=== PATIENT | female | born 1995 | race Caucasian/White ===

== ENCOUNTER 2016-10-25 20:16 | Emergency (ER) | payer MEDICAID ==
[~2016-10-25] VITALS: Ht 170.2 cm; Wt 87.6 kg
[~2016-10-25 20:16] MED LIST: ALBUTEROL2 PUFFS/17 IN; BACTRIM DS 8001 TA1 PO; BUPAP PO; FLEXERIL10 MG PO; IBUPROFEN200 MG PO; LAMICTAL25 MG PO; LEVAQUIN 750 M750 MG PO; LOESTRIN 24 FE1 TAB PO; LORTAB 5/500 501 TAB PO; NOMEDS *; PHENERGAN 25MG.25 M1 PO; PREDNISONE 10MG10 MG PO; SEPTRA DS 800 M1 TAB PO; SPRINTEC 35 MCG1 TAB PO; TESSALON PERLE100 M1 PO; ULTRAM50 MG PO; VOLTAREN75 MG PO
--- NOTE | 2016-10-25 20:59 | Urgent Treatment Center Report ---
History of Present Issue Date/Time Seen by Provider 10/25/162050 Visit Reason Pt arrived:Walked Presenting Problem:PT STATES HAVING VAGINAL ODOR AND DISCHARGE FOR A WEEK AND NOTICED VAGINAL BUMPS THIS MORNING. STATES DISCHARGE IS WHITE AND MILKY. Location if Accident: Onset of symptoms date/time:/ or onset unknown for:MEDICAL HX UNKNOWN Have you (or family members/close friends) recently traveled outside the [place]? N If Yes, where/when: Have you had exposure to infectious disease within the past month? TB? Other? Specify: Patient states that she has been having some bumps on her vaginal area and discharge with a foul odor for about a week now. States that this morning her "boyfriend" and her was "fooling around" and he noticed some "bumps" down there and that it had a white milky discharge so she came to have some test done to see if she had a STD Source patient ALLERGIES Coded Allergies: Penicillins (10/25/16) morphine (10/25/16) History Medical History General CAD? No Angina: No OR: No Hypertension? No Hyperlipidemia? No CHF? No DVT? No PE? No COPD? No Asthma? No Anemia? No GERD? No Gastric ulcers? No GI Bleed? No Hernia? No Thyroid Problems? No Hypothyroidism? No CVA? No Seizures? No Diabetes? No Renal Insuffiency? No UTI? No Stones? No BPH? No GB Disease: No Nephritic Syndrome? No Asplenia? No Hepatitis? No Sickle Cell Disease? No Arthritis? No Migraines? No Cataracts? No Glaucoma? No MRSA? No HIV? No TB? No Anxiety? No Depression? No Cancer? 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 Family History Family HX Diabetes Yes CAD Yes Hypertension Yes Hyperlipidemia Yes Cancer No TB No Social History Smoking Hx Smoker: Current Every Day Smoker Tobacco: Yes Type Cigarettes Packs/day < 1 Pack Alcohol Alcohol: No Review of Systems All Other Systems Reviewed and Negative Comment White milky discharge with foul oder, and bumps on her vagina for about a week now Physical Exam Vital Signs Vital Signs Date Time Temp Pulse Resp B/P Pulse O2 O2 Flow FiO2 Ox Delivery Rate 10/26 2039 98.1 103 20 161/88 96 General Appearance normal appearance, WD/WN, no apparent distress Respiratory Status Yes: trachea midline, chest symmetrical, non tender chest. No: respiratory distress. Cardiovascular normal exam, regular rate/rhythm, no peripheral edema Pelvic no cerv. motion tender, discharge, lesions, Patient had white thin discharge, cultures obtained and sent to lab. Patient states that she thinks she has blisters in her vagina observed flesh colored like lesions that have not come out yet Nurse present during exam? Yes Neurologic alert, trolley operator II-XII nml as tested, normal exam, no motor/sensory deficits, oriented x 3 Comments Patient recently exposed to STD states that she also thinks she may have either warts or herpes because she can feel something up inside her. Medical Decision Making LABS/Meds/Orders Pt receiving controlled substance in ED? No Results/Orders Laboratory Tests 10/25/162250: Urine Color YELLOW, Urine Appearance Cloudy, Urine pH 6.0, Ur Specific [place] 1.020, Urine Protein 100, Urine Ketones 160, Urine Blood MODERATE, Urine Nitrate POSITIVE H, Urine Bilirubin SMALL, Urine Urobilinogen 0.2, Ur Leukocyte Esterase SMALL, Urine Glucose NEGATIVE 10/25/162199: C.trachomatis DNA (JERAMIE) Pending, N.gonorrhoeae RNA Pending Current Medication Orders Sig/Leo Start time Last Medication Dose Route Stop Time Status Admin Azithromycin 1,000 MG ONCE ONE 10/25 2229 DC 10/25 PO 10/25 Ceftriaxone Sodium 250 MG ONCE ONE 10/25 2229 DCr 10/25 IM 10/25 Lidocaine HCl 0.9 ML ONCE ONE 10/25 2229 DC 10/25 IM 10/25 Ceftriaxone Sodium 0 .STK-MED ONE 10/25 2222 DCr .ROUTE Lidocaine HCl 0 .STK-MED ONE 10/25 2222 DC IJ Azithromycin 0 .STK-MED ONE 10/25 2221 DC PO Orders Procedure Date/time Status CHLAMYDIA/GC 10/25 UNK Active [facility] URINE DIPSTICK 10/25 2250 Complete Progress [facility] Progress Notes Date 10/25/16 Time 2202 Comment pelvic exam done swabs collected and sent to lab patient requesting treatment for clamydia and gonarrhea state that she knew she had been exposed and wanted treatment Departure Departure Time of Disposition 2224 Disposition DC Home or Self Care(routine) Clinical Impression Primary Impression: Sexually transmitted disease exposure Secondary Impressions: UTI (urinary tract infection) Qualifiers: Urinary tract infection type: site unspecified Hematuria presence: with hematuria Qualified Code: N39.0 - Urinary tract infection, site not specified Condition STABLE Referrals Carmelo RAJAN,Jose G Aragon.: Tomorrow-Call Office Satnam RAJAN,Byron Benedict: Tomorrow-Call Office Patient Instructions Facts About Sexually Transmitted Infections, How to Detect and Treat STDs Additional Instructions Follow up with family doctor or OBGYN for results of testing in 3-4 days No sex until cleared by family doctor or OBGYN Return if needed Discharge Counseling Counseled pt/family regarding diagnosis, test results, medications/RX, home care, follow up needs Prescriptions Current Visit Scripts SULFAMETHOXAZOLE W/TRIMETHOPRI (Bactrim Ds Tab) 1 TABLET PO BID #20 TAB at 8575
--- NOTE | 2016-10-25 20:59 | Urgent Treatment Center Report ---
History of Present Issue Date/Time Seen by Provider 10/25/162050 Visit Reason Pt arrived:Walked Presenting Problem:PT STATES HAVING VAGINAL ODOR AND DISCHARGE FOR A WEEK AND NOTICED VAGINAL BUMPS THIS MORNING. STATES DISCHARGE IS WHITE AND MILKY. Location if Accident: Onset of symptoms date/time:/ or onset unknown for:MEDICAL HX UNKNOWN Have you (or family members/close friends) recently traveled outside the [place]? N If Yes, where/when: Have you had exposure to infectious disease within the past month? TB? Other? Specify: Patient states that she has been having some bumps on her vaginal area and discharge with a foul odor for about a week now. States that this morning her "boyfriend" and her was "fooling around" and he noticed some "bumps" down there and that it had a white milky discharge so she came to have some test done to see if she had a STD Source patient ALLERGIES Coded Allergies: Penicillins (10/25/16) morphine (10/25/16) History Medical History General CAD? No Angina: No RI: No Hypertension? No Hyperlipidemia? No CHF? No DVT? No PE? No COPD? No Asthma? No Anemia? No GERD? No Gastric ulcers? No GI Bleed? No Hernia? No Thyroid Problems? No Hypothyroidism? No CVA? No Seizures? No Diabetes? No Renal Insuffiency? No UTI? No Stones? No BPH? No GB Disease: No Nephritic Syndrome? No Asplenia? No Hepatitis? No Sickle Cell Disease? No Arthritis? No Migraines? No Cataracts? No Glaucoma? No MRSA? No HIV? No TB? No Anxiety? No Depression? No Cancer? 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 Family History Family HX Diabetes Yes CAD Yes Hypertension Yes Hyperlipidemia Yes Cancer No TB No Social History Smoking Hx Smoker: Current Every Day Smoker Tobacco: Yes Type Cigarettes Packs/day < 1 Pack Alcohol Alcohol: No Review of Systems All Other Systems Reviewed and Negative Comment White milky discharge with foul oder, and bumps on her vagina for about a week now Physical Exam Vital Signs Vital Signs Date Time Temp Pulse Resp B/P Pulse O2 O2 Flow FiO2 Ox Delivery Rate 10/26 2039 98.1 103 20 161/88 96 General Appearance normal appearance, WD/WN, no apparent distress Respiratory Status Yes: trachea midline, chest symmetrical, non tender chest. No: respiratory distress. Cardiovascular normal exam, regular rate/rhythm, no peripheral edema Pelvic no cerv. motion tender, discharge, lesions, Patient had white thin discharge, cultures obtained and sent to lab. Patient states that she thinks she has blisters in her vagina observed flesh colored like lesions that have not come out yet Nurse present during exam? Yes Neurologic alert, attraction attendant II-XII nml as tested, normal exam, no motor/sensory deficits, oriented x 3 Comments Patient recently exposed to STD states that she also thinks she may have either warts or herpes because she can feel something up inside her. Medical Decision Making LABS/Meds/Orders Pt receiving controlled substance in ED? No Results/Orders Laboratory Tests 10/25/162250: Urine Color YELLOW, Urine Appearance Cloudy, Urine pH 6.0, Ur Specific [place] 1.020, Urine Protein 100, Urine Ketones 160, Urine Blood MODERATE, Urine Nitrate POSITIVE H, Urine Bilirubin SMALL, Urine Urobilinogen 0.2, Ur Leukocyte Esterase SMALL, Urine Glucose NEGATIVE 10/25/162199: C.trachomatis DNA (JERAMIE) Pending, N.gonorrhoeae RNA Pending Current Medication Orders Sig/Leo Start time Last Medication Dose Route Stop Time Status Admin Azithromycin 1,000 MG ONCE ONE 10/25 2229 DC 10/25 PO 10/25 Ceftriaxone Sodium 250 MG ONCE ONE 10/25 2229 DCr 10/25 IM 10/25 Lidocaine HCl 0.9 ML ONCE ONE 10/25 2229 DC 10/25 IM 10/25 Ceftriaxone Sodium 0 .STK-MED ONE 10/25 2222 DCr .ROUTE Lidocaine HCl 0 .STK-MED ONE 10/25 2222 DC IJ Azithromycin 0 .STK-MED ONE 10/25 2221 DC PO Orders Procedure Date/time Status CHLAMYDIA/GC 10/25 UNK Active [facility] URINE DIPSTICK 10/25 2250 Complete Progress [facility] Progress Notes Date 10/25/16 Time 2202 Comment pelvic exam done swabs collected and sent to lab patient requesting treatment for clamydia and gonarrhea state that she knew she had been exposed and wanted treatment Departure Departure Time of Disposition 2224 Disposition DC Home or Self Care(routine) Clinical Impression Primary Impression: Sexually transmitted disease exposure Secondary Impressions: UTI (urinary tract infection) Qualifiers: Urinary tract infection type: site unspecified Hematuria presence: with hematuria Qualified Code: N39.0 - Urinary tract infection, site not specified Condition STABLE Referrals Carmelo RAJAN,Jose G Aragon.: Tomorrow-Call Office Satnam RAJAN,Byron Benedict: Tomorrow-Call Office Patient Instructions Facts About Sexually Transmitted Infections, How to Detect and Treat STDs Additional Instructions Follow up with family doctor or OBGYN for results of testing in 3-4 days No sex until cleared by family doctor or OBGYN Return if needed Discharge Counseling Counseled pt/family regarding diagnosis, test results, medications/RX, home care, follow up needs Prescriptions Current Visit Scripts SULFAMETHOXAZOLE W/TRIMETHOPRI (Bactrim Ds Tab) 1 TABLET PO BID #20 TAB at 5951
[2016-10-25] MEDS ORDERED: BACTRIM DS 8001 TA1 PO (22:30)
[2016-10-25 22:52] LABS: URINE BILIRUBIN - DIPSTICK SMALL (NEG); URINE BLOOD MODERATE (NEG)
[2016-10-25 22:56] VITALS: BP 161/88
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
--- OUTSIDE RECORDS SUMMARY | 2016-10-26 09:23 | External Medical Summary Rpt ---
Author Author [employer], [employer] Organization [employer] Address Unknown Phone Unavailable Results CHLAMYDIA AND GONORRHEA TESTING Observa Value Referen Units Interpr Notes Date tion ce etation Range COLLECT C3819 No No No No May 30 OR informa informa informa informa 2014 tion in tion in tion in tion in 2:50 PM source source source source data data data data ETHNICI WHITE, No No No No May 30 TY NON-HIS informa informa informa informa 2014 PANIC tion in tion in tion in tion in 2:50 PM source source source source data data data data KIT 09/2014 No No No No May 30 EXPIRAT informa informa informa informa 2014 ION tion in tion in tion in tion in 2:50 PM DATE source source source source data data data data SYMPTOM YES No No No No May 30 S informa informa informa informa 2014 tion in tion in tion in tion in 2:50 PM source source source source data data data data REASON VOLUNTE No No No No May 30 FOR ER/MEDI informa informa informa informa 2014 REQUEST BRANDON tion in tion in tion in tion in 2:50 PM PROBLEM source source source source data data data data SPECIME URINE No No No No May 30 N informa informa informa informa 2014 SOURCE tion in tion in tion in tion in 2:50 PM source source source source data data data data PREGNAN NO No No No No May 30 T informa informa informa informa 2014 tion in tion in tion in tion in 2:50 PM source source source source data data data data CHART N/A No No No No May 30 NUMBER informa informa informa informa 2014 tion in tion in tion in tion in 2:50 PM source source source source data data data data Chlamyd NEGATIV No No No NEGATIV May 30 ia E informa informa informa E 2014 trachom tion in tion in tion in RESULT= 2:50 PM atis source source source WITHIN rRNA data data data NORMAL [Presen ce] in LIMITSP Unspeci OSITIVE fied specime RESULT= n by Probe & ABNORMA target LEQUIVO BRANDON amplifi RESULT= cation method INDETER MINATEU NSATISF ACTORY RESULT= INVALID Neisser NEGATIV No No No NEGATIV May 30 ia E informa informa informa E 2014 gonorrh tion in tion in tion in RESULT= 2:50 PM oeae source source source WITHIN rRNA data data data NORMAL [Presen ce] in LIMITSP Unspeci OSITIVE fied specime RESULT= n by Probe & ABNORMA target LEQUIVO BRANDON amplifi RESULT= cation method INDETER MINATEU NSATISF ACTORY RESULT= INVALID THE APTIMA COMBO 2 ASSAY IS NOT INTENDE D FOR THE EVALUAT ION OF SUSPECT EDSEXUA L ABUSE OR FOR OTHER MEDICO- LEGAL INDICAT IONS. FOR THOSE PATIENT S FORWHOM A FALSE POSITIV E RESULT MAY HAVE ADVERSE PSYCHO- SOCIAL IMPACT, [facility].\.br \This report contain s patient informa tion that must be protect ed in accorda nce with the Health Insuran ce Portabi lity and Account ability Act. CHLAMYDIA AND GONORRHEA TESTING Observa Value Referen Units Interpr Notes Date tion ce etation Range COLLECT C3819 No No No No May 30 OR informa informa informa informa 2014 tion in tion in tion in tion in 2:50 PM source source source source data data data data ETHNICI WHITE, No No No No May 30 TY NON-HIS informa informa informa informa 2014 PANIC tion in tion in tion in tion in 2:50 PM source source source source data data data data KIT 09/2014 No No No No May 30 EXPIRAT informa informa informa informa 2014 ION tion in tion in tion in tion in 2:50 PM DATE source source source source data data data data SYMPTOM YES No No No No May 30 S informa informa informa informa 2014 tion in tion in tion in tion in 2:50 PM source source source source data data data data REASON VOLUNTE No No No No May 30 FOR ER/MEDI informa informa informa informa 2014 REQUEST BRANDON tion in tion in tion in tion in 2:50 PM PROBLEM source source source source data data data data SPECIME URINE No No No No May 30 N informa informa informa informa 2014 SOURCE tion in tion in tion in tion in 2:50 PM source source source source data data data data PREGNAN NO No No No No May 30 T informa informa informa informa 2014 tion in tion in tion in tion in 2:50 PM source source source source data data data data CHART N/A No No No No May 30 NUMBER informa informa informa informa 2014 tion in tion in tion in tion in 2:50 PM source source source source data data data data [place]yd Pending No No No No May 30 ia informa informa informa informa 2014 trachom tion in tion in tion in tion in 2:50 PM atis source source source source rRNA data data data data [Presen ce] in Unspeci fied specime n by Probe & target amplifi cation method Neisser Pending No No No \.br\May 30 ia informa informa informa is 2014 gonorrh tion in tion in tion in report 2:50 PM oeae source source source contain rRNA data data data s [Presen patient ce] in Unspeci informa fied tion specime that n by must be Probe & target protect ed in amplifi accorda cation nce method with the Health Insuran ce Portabi lity and Account ability Act. CHLAMYDIA AND GONORRHEA TESTING Observa Value Referen Units Interpr Notes Date tion ce etation Range COLLECT D. 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 informa informa 2012 tion in tion in tion in tion in 8:30 AM source source source source data data data data ETHNICI WHITE, No No No No Feb 01 TY NON-HIS informa informa informa informa 2012 PANIC tion in tion in tion in tion in 8:30 AM source source source source data data data data KIT OCTOBER No No No No Feb 01 EXPIRAT 31, informa informa informa informa 2012 ION 2012 tion in tion in tion in tion in 8:30 AM DATE source source source source data data data data SYMPTOM NO No No No No Feb 01 S informa informa informa informa 2012 tion in tion in tion in tion in 8:30 AM source source source source data data data data REASON REVISIT No No No No Feb 01 FOR /ANNUAL informa informa informa informa 2012 REQUEST FAMILY tion in tion in tion in tion in 8:30 AM source source source source PLANNIN data data data data G VISIT SPECIME URINE No No No No Feb 01 N informa informa informa informa 2012 SOURCE tion in tion in tion in tion in 8:30 AM source source source source data data data data PREGNAN NO No No No No Feb 01 T informa informa informa informa 2012 tion in tion in tion in tion in 8:30 AM source source source source data data data data CHART NA No No No No Feb 01 NUMBER informa informa informa informa 2012 tion in tion in tion in tion in 8:30 AM source source source source data data data data [place] NEGATIV No No No NEGATIV Feb 01 ia E informa informa informa E 2012 trachom tion in tion in tion in RESULT= 8:30 AM atis source source source WITHIN rRNA data data data NORMAL [Presen ce] in LIMITSP Unspeci OSITIVE fied specime RESULT= n by Probe & ABNORMA target LEQUIVO BRANDON amplifi RESULT= cation method INDETER MINATEU NSATISF ACTORY RESULT= INVALID Neisser NEGATIV No No No NEGATIV Feb 01 ia E informa informa informa E 2012 gonorrh tion in tion in tion in RESULT= 8:30 AM oeae source source source WITHIN rRNA data data data NORMAL [Presen ce] in LIMITSP Unspeci OSITIVE fied specime RESULT= n by Probe & ABNORMA target LEQUIVO BRANDON amplifi RESULT= cation method INDETER MINATEU NSATISF ACTORY RESULT= INVALID THE APTIMA COMBO 2 ASSAY IS NOT INTENDE D FOR THE EVALUAT ION OF SUSPECT EDSEXUA L ABUSE OR FOR OTHER MEDICO- LEGAL INDICAT IONS. FOR THOSE PATIENT S FORWHOM A FALSE POSITIV E RESULT MAY HAVE ADVERSE PSYCHO- SOCIAL IMPACT, THE [facility] MMENDS RETESTI NG.\.br \This report contain s patient informa tion that must be protect ed in accorda nce with the Health Insuran ce Joanne gonzalez and Account ability Act. CHLAMYDIA AND GONORRHEA TESTING Observa Value Referen Units Interpr Notes Date tion ce etation Range COLLECT D. 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 informa informa 2012 tion in tion in tion in tion in 8:30 AM source source source source data data data data ETHNICI WHITE, No No No No Feb 01 TY NON-HIS informa informa informa informa 2012 PANIC tion in tion in tion in tion in 8:30 AM source source source source data data data data KIT OCTOBER No No No No Feb 01 EXPIRAT 31, informa informa informa informa 2012 ION 2012 tion in tion in tion in tion in 8:30 AM DATE source source source source data data data data SYMPTOM NO No No No No Feb 01 S informa informa informa informa 2012 tion in tion in tion in tion in 8:30 AM source source source source data data data data REASON REVISIT No No No No Feb 01 FOR /ANNUAL informa informa informa informa 2012 REQUEST FAMILY tion in tion in tion in tion in 8:30 AM source source source source PLANNIN data data data data G VISIT SPECIME URINE No No No No Feb 01 N informa informa informa informa 2012 SOURCE tion in tion in tion in tion in 8:30 AM source source source source data data data data PREGNAN NO No No No No Feb 01 T informa informa informa informa 2012 tion in tion in tion in tion in 8:30 AM source source source source data data data data CHART NA No No No No Feb 01 NUMBER informa informa informa informa 2012 tion in tion in tion in tion in 8:30 AM source source source source data data data data Chlamyd Pending No No No No Feb 01 ia informa informa informa informa 2012 trachom tion in tion in tion in tion in 8:30 AM atis source source source source rRNA data data data data [Presen ce] in Unspeci fied specime n by Probe & target amplifi cation method Neisser Pending No No No \.br\Th Aug 7 ia informa informa informa is 2012 gonorrh tion in tion in tion in report 8:30 AM oeae source source source contain rRNA data data data s [Presen patient ce] in Unspeci informa fied tion specime that n by must be Probe & target protect ed in amplifi accorda cation nce method with the Health Insuran ce Portabi lity and Account ability Act.
--- OUTSIDE RECORDS SUMMARY | 2016-10-26 09:23 | External Medical Summary Rpt ---
Demographics Preferred Language Citizen Of [place] Marital Status Unknown Evangelical Affiliation Unknown Race Unknown Ethnic Group Unknown Author Author , Organization [employer] Address Unknown Phone Unavailable Purpose Continuity of Care Document - through 2016 Immunization No patient found.
--- OUTSIDE RECORDS SUMMARY | 2016-10-26 09:23 | External Medical Summary Rpt ---
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
--- OUTSIDE RECORDS SUMMARY | 2016-10-26 09:23 | External Medical Summary Rpt ---
Author Author [employer] Organization [employer] Address Unknown Phone Unavailable Purpose Continuity of Care Document - through 2016
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
--- OUTSIDE RECORDS SUMMARY | 2016-10-26 09:23 | External Medical Summary Rpt ---
Demographics Preferred Language Belarusian Marital Status Unknown Pentecostalism Affiliation Unknown Race Unknown Ethnic Group Unknown Author Author , Organization [employer] Address Unknown Phone Unavailable Purpose Continuity of Care Document - through 2016 Immunization No patient found.
[2016-10-28 14:39] LABS: Neisseria gonorrhoeae, NAA Negative (Negative)
[2016-11-02] MEDS ORDERED: SUBOXONE1 FI1 SL (11:03)
== END 2016-10-25 22:56 | disposition home or self-care (01) ==
LOC: UTC 20:16
PROVIDERS: Nurse Practitioner
DX: A64 Unspecified sexually transmitted disease (principal); N39.0 Urinary tract infection, site not specified

== ENCOUNTER → 2016-11-10 | Outpatient (CLI) | payer MEDICAID ==
[~2016-11-10] MED LIST changes: +SUBOXONE1 FI1 SL
[2016-11-11 07:39] LABS: HIV Screen 4th Generation wRfx Non Reactive (Non Reactive)
[2016-11-11 08:52] LABS: Hep C Virus Ab >11.0 (0.0-0.9); Rapid Plasma Reagin, Quant Non Reactive (NonRea<1:1)
== END ==
LOC: LAB 11:47
PROVIDERS: Obstetrics & Gynecology
DX: Z30.019 Encounter for initial prescription of contraceptives, unspecified (principal); Z30.09 Encounter for other general counseling and advice on contraception
CPT/HCPCS: G0432

== ENCOUNTER 2017-04-04 20:42 | Emergency (ER) | payer MEDICAID ==
[~2017-04-04] VITALS: Ht 167.6 cm; Wt 78.0 kg
--- NOTE | 2017-04-04 20:55 | Urgent Treatment Center Report ---
History of Present Issue Date/Time Seen by Provider 04/04/172050 Visit Reason Pt arrived:Walked Presenting Problem:PT C/O FEVER AND NAUSEA TODAY Location if Accident: Onset of symptoms date/time:/ or onset unknown for:MEDICAL HX UNKNOWN Have you (or family members/close friends) recently traveled outside the [place]? N If Yes, where/when: Have you had exposure to infectious disease within the past month? TB? Other? 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 States that she was running a low grade fever earlier today and had some nausea States that she vomited a couple times earlier today but feels better now States that she thought she may need to come in and see if she needed anything for nausea ALLERGIES Coded Allergies: Penicillins (10/25/16) morphine (10/25/16) Home Medications Reported Medications BUPRENORPHINE HCL/NALOXONE HCL (Suboxone 12 MG-3 MG Sl Film) 1 SL DAILY History Medical History General CAD? No Angina: No ME: No Hypertension? No Hyperlipidemia? No CHF? No DVT? No PE? No COPD? No Asthma? No Anemia? No GERD? No Gastric ulcers? No GI Bleed? No Hernia? No Thyroid Problems? No Hypothyroidism? No CVA? No Seizures? No Diabetes? No Renal Insuffiency? No UTI? No Stones? No BPH? No GB Disease: No Nephritic Syndrome? No Asplenia? No Hepatitis? No Sickle Cell Disease? No Arthritis? No Migraines? No Cataracts? No Glaucoma? No MRSA? No HIV? No TB? No Anxiety? No Depression? No Cancer? No More? No Immunization HX DT/Tetanus Unknown Flu NOT SURE Pneumonia UNKNOWN Surgical Hx Previous Surgery?Y TONSILS Family History Family HX Diabetes Yes CAD Yes Hypertension Yes Hyperlipidemia Yes Cancer No TB No Social History Smoking Hx Smoker: Current Every Day Smoker Tobacco: Yes Type Cigarettes Packs/day < 1 Pack Alcohol Alcohol: No Review of Systems All Other Systems Reviewed and Negative Constitutional denies chills, fever Respiratory denies cough, denies shortness of breath, denies wheezing Cardiovascular denies chest pain Gastrointestinal denies nausea, denies vomiting Physical Exam Vital Signs Vital Signs Date Time Temp Pulse Resp B/P Pulse O2 O2 Flow FiO2 Ox Delivery Rate 04/04 2048 97.7 105 18 120/77 98 General Appearance normal appearance, WD/WN, no apparent distress Ear, Nose, Throat hearing grossly normal, normal ENT inspection Respiratory Status Yes: trachea midline, chest symmetrical, non tender chest. No: respiratory distress. Lung Sounds bilateral: normal breath sounds, lungs clear. Cardiovascular normal exam, regular rate/rhythm Gastrointestinal normal bowel sounds, normal exam, non tender Neurologic alert, normal exam, oriented x 3 Medical Decision Making LABS/Meds/Orders Pt receiving controlled substance in ED? No Departure Departure Time of Disposition 2052 Disposition DC Home or Self Care(routine) Clinical Impression Primary Impression: Viral gastroenteritis Condition STABLE Patient Instructions DI for Viral Gastroenteritis -- Adult Additional Instructions Viral Gastroenteritits try very small amounts of water or suck on ice chips. diarrhea. children and infants should use products formulated for children, like oral rehydration solutions. Never give aspirin to children or teenagers with a viral illness. This can cause Atul syndrome, a potentially life-threatening condition. Preventing Viral Gastroenteritis your Viral gastroenteritis is easily spread. There are some things you can do to lower chances of marisa the virus or spreading it to others. preparation. If necessary, use hand medical diagnostic radiographer until you can access soap and water. or towels. Take special precautions to avoid contaminated water and food when traveling. Avoid ice cubes and use bottled water when Discharge Counseling Counseled pt/family regarding diagnosis, home care, follow up needs at 2054
[2017-04-04 21:00] VITALS: BP 120/77
--- OUTSIDE RECORDS SUMMARY | 2017-04-09 23:08 | External Medical Summary Rpt ---
Author Author [facility] Address Unknown Phone Unavailable Encounter SUZIE BLANTON [id number] Date(s): 12/30/16 - 12/31/16 [address] [place] [address] [facility] Discharge Diagnosis: Abdominal pain Discharge Disposition: OP Self Care or Home Attending Physician: TESSA SAWANT MD-EMR Admitting Physician: TESSA SAWANT MD-EMR Referring Physician: VIDALY, SELF REFERRED Reason for Visit GALL BLADDER PAIN Vital Signs Most recent 1 2 3 to oldest [Reference Range]: Temperature Oral Oral Source (12/31/16 12:00 AM) (12/30/16 8:56 PM) Temperature Fahrenheit Fahrenheit Mode (12/31/16 12:00 AM) (12/30/16 8:56 PM) Temperature, 97.4 Deg F 97.2 Deg F Fahrenheit (12/31/16 12:00 AM) (12/30/16 8:56 PM) [96.8-99.7 Deg F] Clinical 36.3 Deg C 36.2 Deg C Temperature, (12/31/16 12:00 AM) (12/30/16 8:56 PM) C Peripheral 96 bpm 82 bpm 95 bpm Pulse Rate (12/31/16 2:00 AM) (12/31/16 12:00 AM) (12/30/16 10:53 PM) [60-100 bpm] Respiratory 16 Breaths/Min 18 Breaths/Min 18 Breaths/Min Rate [14-20 (12/31/16 2:00 AM) (12/31/16 12:00 AM) (12/30/16 10:53 PM) Breaths/Min] Blood 110/48 mmHg 101/49 mmHg 111/51 mmHg Pressure (12/31/16 2:00 AM) (12/31/16 12:00 AM) (12/30/16 10:53 PM) [90-140/60-9 0 mmHg] Mean 69 mmHg 66 mmHg 71 mmHg Arterial (12/31/16 2:00 AM) (12/31/16 12:00 AM) (12/30/16 10:53 PM) Pressure (MAP) Mean 63 61 63 Arterial (12/31/16 2:00 AM) (12/31/16 12:00 AM) (12/30/16 10:53 PM) Pressure (MAP)-BMDI Oxygen 97 % 98 % 99 % Saturation (12/31/16 2:00 AM) (12/31/16 12:00 AM) (12/30/16 10:53 PM) [94-100 %] Oxygen Room air Room air Room air Therapy Mode (12/31/16 2:00 AM) (12/31/16 12:00 AM) (12/30/16 10:53 PM) Height Stated Source (12/30/16 8:56 PM) Height Entry [place] Format (12/30/16 8:56 PM) Height/Lengt 5 ft h, SAMOAN (12/30/16 8:56 PM) (ft) Height/Lengt 5 Inch h SAMOAN (12/30/16 8:56 PM) CLINICALHEIG 165.1 cm HT (12/30/16 8:56 PM) Weight Standing scale Source, ED (12/30/16 8:56 PM) Weight Entry [place] Format (12/30/16 8:56 PM) Weight 175 lb [place] lb (12/30/16 8:56 PM) CLINICALWEIG 79.55 kg HT (12/30/16 8:56 PM) Body Surface 1.87 m2 Area (BSA) (12/30/16 8:56 PM) Body Mass 29.2 kg/m2 Index (BMI) *HI* [19.0-24.0 (12/30/16 8:56 PM) kg/m2] [place] Body 57 kg Weight (12/30/16 8:56 PM) Problem List No data available for this section Allergies, Adverse Reactions, Alerts Substance Reaction Severity Status morphine Active penicillin Active Medications No data available for this section Results GENERAL CHEMISTRY Most recent 1 to oldest [Reference Range]: Sodium Level 138 mmol/L [135-143 (12/30/16 9:06 PM) mmol/L] Potassium 4.2 mmol/L Level (12/30/16 9:06 PM) [3.5-4.8 mmol/L] Chloride 104 mmol/L Level (12/30/16 9:06 PM) [100-110 mmol/L] Carbon 25.0 mmol/L Dioxide (12/30/16 9:06 PM) Level [22.0-30.0 mmol/L] Anion Gap 9.0 [2.0-11.0] (12/30/16 9:06 PM) Glucose 98 mg/dL Level (12/30/16 9:06 PM) [70-110 mg/dL] Blood Urea 10 mg/dL Nitrogen (12/30/16:06 PM) [6-20 mg/dL] Creatinine 0.79 mg/dL Level (12/30/16 9:06 PM) [0.44-1.03 mg/dL] eGFR 109 mL/min/1.73m2 [>=60 (12/30/16:06 PM) mL/min/1.73m 2] eGFR 90 mL/min/1.73m2 NonAfrican (12/30/16 9:06 PM) [>=60 mL/min/1.73m 2] Bun/Creatini 12.7 ne (12/30/16 9:06 PM) [6.0-22.0] Calcium 9.6 mg/dL Level (12/30/16 9:06 PM) [8.9-10.2 mg/dL] Protein 7.2 Gram/dL Total (12/30/16 9:06 PM) [6.3-8.2 Gram/dL] Albumin 4.0 Gram/dL Level (12/30/16 9:06 PM) [3.3-4.5 Gram/dL] Globulin 3 *NA* (12/30/16 9:06 PM) A/G Ratio 1.3 [1.0-1.7] (12/30/16 9:06 PM) Bilirubin 0.6 mg/dL Total (12/30/16 9:06 PM) [0.2-1.0 mg/dL] Alk Phos 71 Units/Liter [25-105 (12/30/16 9:06 PM) Units/Liter] AST [8-34 14 Units/Liter Units/Liter] (12/30/16 9:06 PM) ALT [<=24 13 Units/Liter Units/Liter] (12/30/16 9:06 PM) Amylase 79 Units/Liter Level (12/30/16 9:06 PM) [28-100 Units/Liter] Lipase Level 30 Units/Liter [10-50 (12/30/16 9:06 PM) Units/Liter] HEMATOLOGY Most recent 1 to oldest [Reference Range]: WBC 7.0 x10(3)/uL [4.1-10.8 (12/30/16 9:06 PM) x10(3)/uL] RBC 5.46 x10(6)/uL [3.77-5.16 *HI* x10(6)/uL] (12/30/16 9:06 PM) Hgb 14.9 Gram/dL [11.2-15.7 (12/30/16 9:06 PM) Gram/dL] Hct 46.4 % [34.1-44.9 *HI* %] (12/30/16 9:06 PM) MCV 85.0 fL [79.4-94.8 (12/30/16 9:06 PM) fL] MCH 27.3 pg [25.6-32.2 (12/30/16 9:06 PM) pg] MCHC 32.1 Gram/dL [32.2-35.5 *LOW* Gram/dL] (12/30/16 9:06 PM) Platelet 175 x10(3)/uL Count (12/30/16 9:06 PM) [140-370 x10(3)/uL] MPV 9.4 fL [8.7-12.0 (12/30/16 9:06 PM) fL] RDW 15.9 % [11.7-15.2 *HI* %] (12/30/16 9:06 PM) Neut % 76.5 % [34.0-69.5 *HI* %] (12/30/16 9:06 PM) Neut # 5.30 x10(3)/uL [1.70-6.00 (12/30/16 9:06 PM) x10(3)/uL] Lymph % 19.1 % [20.0-53.0 *LOW* %] (12/30/16 9:06 PM) Lymph # 1.3 x10(3)/uL [0.8-3.2 (12/30/16 9:06 PM) x10(3)/uL] [place] % 2.5 % [5.0-12.5 %] *LOW* (12/30/16 9:06 PM) [place] # 0.2 x10(3)/uL [0.2-1.4 (12/30/16 9:06 PM) x10(3)/uL] Eos % 1.6 % [0.7-6.0 %] (12/30/16 9:06 PM) Eos # 0.1 x10(3)/uL [0.0-0.6 (12/30/16 9:06 PM) x10(3)/uL] Baso % 0.3 % [0.0-3.0 %] (12/30/16 9:06 PM) Baso # 0.0 x10(3)/uL [0.0-0.3 (12/30/16 9:06 PM) x10(3)/uL] Slide Review None *NA* (12/30/16 9:06 PM) URINALYSIS Most recent 1 to oldest [Reference Range]: Urine Negative Bilirubin (12/30/16 9:37 PM) POC [Negative] Urine Blood Negative POC (12/30/16 9:37 PM) [Negative] Urine Negative mg/dL Glucose POC (12/30/16 9:37 PM) [Negative mg/dL] Urine Negative mg/dL Ketones POC (12/30/16 9:37 PM) [Negative mg/dL] Urine Negative Leukocyte (12/30/16 9:37 PM) Esterase POC [Negative] Urine Negative Nitrite POC (12/30/16 9:37 PM) [Negative] Urine pH POC 5.5 *NA* (12/30/16 9:37 PM) Urine Negative mg/dL Protein POC (12/30/16 9:37 PM) [Negative mg/dL] Urine 1.025 Specific *NA* [place] POC (12/30/16 9:37 PM) Urine 0.2 EU/dL Urobilinogen *NA* POC (7/5/17 9:37 PM) Immunizations No data available for this section Procedures No data available for this section Social History No data available for this section Assessment and Plan No data available for this section Hospital Discharge Instructions Patient EducationAbdominal Pain, Adult
--- OUTSIDE RECORDS SUMMARY | 2017-04-09 23:08 | External Medical Summary Rpt ---
Author Author [facility] Organization [facility] Address Unknown Phone Unavailable Encounter SUZIE BLANTON [id number] Date(s): 12/30/16 - 12/31/16 [address] [place] [place] [phone] [facility] Discharge Diagnosis: Abdominal pain Discharge Disposition: OP [...] Stated Source (12/30/16 8:56 PM) Height Entry Inez Format (12/30/16 8:56 PM) Height/Lengt 5 ft h, ALGERIAN (12/30/16 8:56 PM) (ft) Height/Lengt 5 Inch h ALGERIAN (12/30/16 8:56 PM) CLINICALHEIG 165.1 cm HT (12/30/16 8:56 PM) Weight Standing scale Source, ED (12/30/16 8:56 PM) Weight Entry Inez Format (12/30/16 8:56 PM) Weight 175 lb Persian lb (12/30/16 8:56 PM) CLINICALWEIG 79.55 kg HT (12/30/16 8:56 PM) Body Surface 1.87 m2 Area (BSA) (12/30/16 8:56 PM) Body Mass 29.2 kg/m2 Index (BMI) *HI* [19.0-24.0 (12/30/16 8:56 PM) kg/m2] Central Body 57 kg Weight (12/30/16 8:56 PM) [...] 1.3 x10(3)/uL [0.8-3.2 (12/30/16 9:06 PM) x10(3)/uL] Swain % 2.5 % [5.0-12.5 %] *LOW* (12/30/16 9:06 PM) Swain # 0.2 x10(3)/uL [0.2-1.4 (12/30/16 9:06 PM) [...] PM) [Negative mg/dL] Urine 1.025 Specific *NA* Marshall POC (12/30/16 9:37 PM) Urine 0.2 EU/dL Urobilinogen *NA* POC (7/5/17 9:37 PM) Immunizations No data available for this section Procedures No data available for this section Social History No data available for this section Assessment and Plan No data available for this section Hospital Discharge Instructions Patient EducationAbdominal Pain, Adult
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
--- OUTSIDE RECORDS SUMMARY | 2017-04-09 23:11 | External Medical Summary Rpt | CCD ---
Author Author , RIGO Lovell RIGO Address Unknown Phone [email or web address] Care Team Providers Care Field Health Officer Name Role Phone ALFARIS MOH, ALFARIS Unavailable Unavailable MOH ALFARIS MOH, ALFARIS Unavailable Unavailable MOH BEINEKE D, BEINEKE D Unavailable Unavailable BEINEKE D, BEINEKE D Unavailable Unavailable [facility] Unavailable Unavailable [facility], [facility] Unavailable Unavailable [facility]IES, [facility] Unavailable Unavailable HEALTH C, [facility] Unavailable Unavailable DEPARTMENT, [facility] DEPARTMENT ON LICENSE OF [facility] Unavailable Unavailable DEPARTMENT, ON LICENSE OF [facility] DEPARTMENT CRECELIUS, CRECELIUS Unavailable Unavailable DAY OMERO, DAY Unavailable Unavailable OMERO HARPEL, HARPEL Unavailable Unavailable [facility] Un[facility] Un[facility], [facility] RAMACHANDRAN, RAMACHANDRAN Unavailable Unavailable [facility], Unavailable Unavailable [facility] DENTON, DENTON Unavailable Unavailable [facility] Unavailable Unavailable MEDICAL G, [facility] G SANABRIA, SANABRIA Unavailable Unavailable ESTHER, ESTHER Unavailable Unavailable [facility], Unavailable Unavailable [facility], Unavailable Unavailable [facility] TH ALIRIO TER, ALIRIO TER Unavailable Unavailable ANGEL WAQAR SHORT & Unavailable Unavailable KIRK P, ANGEL WAQAR SHORT & KIRK P [facility], Unavailable Unavailable [facility] Unavailable [facility]available DEPT [facility] DEPT [facility] Unavailable Unavailable DEPT [facility] DEPT [facility], [facility] Unavailable Unavailable KWABENA YUAN Unavailable Unavailable SHAJI AND, Unavailable Unavailable SHAJI AND Purpose Continuity of Care Document - 09-14-2013 through 2016 Problems Code Diagnosis DOS Provider Status R112 NAUSEA WITH 02-10-2017 [facility] UNSPECIFIED MEDICAL G B182 CHRONIC 02-08-2017 [facility] HEPATITIS C OLOGY R1011 RIGHT UPPER 02-08-2017 [facility] PAIN OLOGY R1033 PERIUMBILIC 02-08-2017 [facility] OLOGY Z111 ENCOUNTER 01-27-2017 [facility] SCREENING [place] [facility] RESPIRATORY TUBERCULOSI S E669 OBESITY 01-21-2017 [facility]IF[facility] R109 UNSPECIFIED 01-21-2017 [facility] ABDOMINAL [place] [facility] Z6829 BODY MASS 01-21-2017 [facility] INDEX BMI [place] 29.0-29.9 [facility] E663 OVERWEIGHT 01-15-2017 [facility] B1920 UNS VIRAL 12-24-2016 [facility] HEPATITIS C WAQAR WITHOUT SHORT & HEPATIC KIRK P COMA R195 OTHER FECAL 12-24-2016 AN[facility] WAQAR ABNORMALITI SHORT & ES KIRK P B9689 OTH SPEC 11-27-2016 [facility] BACTERIAL PHYSICIANS AGNT CAUSE GROUP DZ CLASSIFIED ELSW N760 ACUTE 11-27-2016 [facility] PH[facility]IC[facility]ANS GROUP W27042 ENCOUNTER 11-10-2016 [facility] FILM FLAT INSPECTOR EXAM PHYSICIANS GENERAL RTN GROUP W/ABNORMAL FIND C78220 ENCOUNTER 11-10-2016 [facility] FILM FLAT INSPECTOR EXAM REFERNCE GENERAL RTN LABORATORIE W/O S ABNORMAL FIND Z113 ENCOUNTER 11-10-2016 [facility] SCREEN PHYSICIANS INFECTIONS GROUP SEXL MODE TRANSMISSN W28205 ENCOUNTER 11-10-2016 [facility] INITIAL PHYSICIANS PRESCRIPTIO GROUP N CONTRACEPTI VE UNS Y4902IQ ALLERGY 11-02-2016 [facility] INITIAL [...] J309 ALLERGIC 05-27-2016 [facility] UNSPECIFIED G71974 CELLULITIS 04-22-2016 [facility] RIGHT COMMUNITY LOWER LIMB [facility] C [id number] INSECT BITE 04-22-2016 [facility] RIGHT COMMUNITY THIGH HEALTH C INITIAL ENCNTR I98029 CUTANEOUS 04-18-2016 [facility] ABSCESS OF COMMUNITY RIGHT LOWER HEALTH C LIMB Z6832 BODY MASS 04-15-2016 [facility] INDEX BMI COMMUNITY 32.0-32.9 HEALTH C ADULT K922 GASTROINTES 04-02-2016 [facility] TINAL N EMERGENCY HEMORRHAGE PHYS UNSPECIFIED H5213 MYOPIA 12-26-2015 KYLIE STEVENSON BILATERAL O19361 ENCOUNTER 12-24-2015 [facility] INITIAL DISTRICT PRESCRIPTIO [facility] DEPT N DANI CONTRACEPT PILLS 34250 CONDYLOMA 05-30-2014 [facility] 82437 UNSPECIFIED 05-30-2014 [place] [facility] DEPART[facility] VULVOVAGINI TIS 34500 ASTHMA, 03-23-2014 [facility] , UNSPECIFIED STATUS 6824 CELLULITIS& 03-23-2014 [facility] HAND EXCEPT FINGERS&ZA MB 4660 ACUTE 02-01-2014 [facility] N EMERGENCY PHYS 5990 URINARY 02-01-2014 [facility] TRACT N EMERGENCY INFECTION PHYS SITE NOT SPECIFIED 24482 WHEEZING 02-01-2014 [facility] N EMERGENCY PHYS 7862 COUGH 02-01-2014 BEINEKE D 42715 UNSPECIFIED 12-16-2013 [facility] GENITAL HERPES 97239 HERPETIC 12-16-2013 [facility] PAT VULVOVAGINI TIS 6235 LEUKORRHEA 12-16-2013 [facility] PAT NOT SPECIFIED INFECTIVE 3671 MYOPIA 11-09-2013 KYLIE ANG 5589 OTH&UNSPEC 09-14-2013 [facility] MOH NONINFECTIO US GASTROENTER ITIS&COLITI S 24867 ABDOMINAL 09-14-2013 [facility] MOH PAIN RIGHT LOWER QUADRANT Medications Na ND Rx Da Fi Fi [...] EN RA 90 17 17 61 S VT 5 18 #3 DE 77 6 10 [...] 6 20 MG CA PS UL E Procedures Procedure DOS Code Location Performer Comment ANE 00833 [facility] UPPER GI 7 [facility] ENDOSCOPY MEDICAL PROXIMAL G TO DUODENUM SKIN TEST 59541 T B T B 7 CLINIC CLINIC [facility] [place] [address] DIAGNOSTI KW[facility]ENA ABDOMINAL 7 C IMAGING REAL ALLIANCE TIME W/[place] [address] ANGEL CRECELIUS ABDOMINAL 7 WAQAR REAL SHORT & TIME KIRK P W/[place] [address] ANGEL SANABRIA ABDOMEN & 7 WAQAR PELVIS SHORT & W/O KIRK P CONTRAST MATERIAL SMR PRIM 37251 [facility] WET 7 PHYSICIAN [place] GROUP NFCT AGT IADNA 15985 BIO BIO CHLAMYDIA 7 REFERNCE REFERNCE LABORATOR LABORATOR TRACHOMAT IES IES IS AMPLIFIED PROBE TQ IADNA 52011 [facility] GARDNEREL 7 REFERNCE REFERNCE LA LABORATOR LABORATOR VAGINALIS IES IES QUANTIFIC ATION IADNA 39603 [facility] HERPES 7 PHYSICIAN SIMPLX S GROUP VIRUS DIRECT PROBE TQ SMR PRIM 85292 [facility] SRC WET 7 PHYSICIAN PHYSICIAN MOUNT S GROUP S GROUP NFCT AGT URINLS 93840 [facility] DIP 7 PHYSICIAN STICK/TAB S GROUP LET REAGNT NON-AUTO MICRSCPY URINE 18069 [facility] HAR[facility]L 7 PHYSICIAN TEST S GROUP VISUAL COLOR CMPRSN METHS IADNA 61127 [facility] PRISCILA 7 REFERNCE REFERNCE SPECIES LABORATOR LABORATOR AMPLIFIED IES IES PROBE TQ CYTP C/V 02697 [facility] AUTO THIN 7 REFERNCE REFERNCE LYR LABORATOR LABORATOR PREPJ SCR IES IES MNL RESCR PHYS CULTURE 41445 [facility] CHLAMYDIA 7 PHYSICIAN ANY S GROUP SOURCE IADNA 86581 BIO BIO TRICHOMON 7 REFERNCE REFERNCE LABORATOR LABORATOR VAGINALIS IES IES AMPLIFIED PROBE TECH IADNA NOS 17610 BIO BIO 7 REFERNCE REFERNCE QUANTIFIC LABORATOR LABORATOR ATION IES IES EACH ORGANISM IAADIADOO 19415 [facility] HAR[facility]L 7 PHYSICIAN TRICHOMON S GROUP VAGINALIS IADNA 91599 BIO BIO HERPES 7 REFERNCE REFERNCE SOMPLX LABORATOR LABORATOR VIRUS IES IES AMPLIFIED PROBE TQ IADNA 88359 BIO BIO NEISSERIA 7 REFERNCE REFERNCE LABORATOR LABORATOR GONORRHOE IES IES AE AMPLIFIED PROBE TQ IADNA NOS 37849 BIO BIO 7 REFERNCE REFERNCE AMPLIFIED LABORATOR LABORATOR PROBE TQ IES IES EACH ORGANISM IADNA 44898 [facility] NEISSERIA 7 PHYSICIAN S GROUP GONORRHOE AE DIRECT PROBE TQ THERAPEUT 71130 [facility] IC 7 [facility] PROPHYLAC INC INC TIC/DX INJECTION SUBQ/IM UNCLASSIF J3490 [facility] PARED[facility] IED DRUGS 7 [facility] INC INC UNCLASSIF J3490 [facility] IED DRUGS 7 [facility] INC INC THERAPEUT 88478 [facility] IC 7 [facility] PROPHYLAC INC INC TIC/DX INJECTION SUBQ/IM URNLS DIP 49102 [facility] PAREDES 7 [facility] STICK/TAB INC INC LET RGNT AUTO W/O MICROSCOP Y VIRUS 01806 [facility] TISS CUL 7 [facility] INOCULATI INC INC ON CYTOPATHI C EFFECT IADNA 42355 [facility] 6 DIAGNOSTI DIAGNOSTI C QUANT CS CS & REVERSE TRANSCRIP TION HEPATITIS 11549 [facility] C 6 DIAGNOSTI DIAGNOSTI ANTIBODY CS CS IADNA 34395 [facility] CHLAMYDIA 6 DIAGNOSTI DIAGNOSTI CS CS TRACHOMAT IS AMPLIFIED PROBE TQ CULTURE 36896 [facility] BCT 6 DIAGNOSTI DIAGNOSTI ISOL&PRSM CS CS PTV ID ISOLATE EA URINE CULTURE 80996 [facility] BACTERIAL 6 DIAGNOSTI DIAGNOSTI CS CS QUANTTATI VE COLONY COUNT URINE IADNA 78293 [facility] NEISSERIA 6 DIAGNOSTI DIAGNOSTI CS CS GONORRHOE AE AMPLIFIED PROBE TQ OPH 78797 [facility] MEDICAL 6 ANG ANG XM&EVAL COMPRHNSV ESTAB PT 1/> CONTRACEP A4269 [facility] SUPPLY [facility] DEPT [facility] DEPT SPERMICID DANI DANI E EACH URINE 01482 [facility] TEST [facility] DEPT [facility] DEPT VISUAL DANI DANI COLOR CMPRSN METHS CONTRACEP A4267 [facility] 6 [facility] SUPPLY [facility] DEPT [facility] DEPT CONDOM DANI DANI MALE EACH CONTRACEP S4993 [facility] 6 [facility] PILLS FOR [facility] DEPT [facility] DEPT DANI DANI CONTROL WET Q0111 [facility] J[facility]E 4 [facility] HEALTH INCL PREP VAGINAL DEPARTMERCY EMERGENCY DEPARTMENT CERV/SKIN T T SPECIMENS URINE 80497 [facility] 4 [facility] HEALTH TEST VISUAL [facility] COLOR T T CMPRSN METHS IADNA 48801 [facility] [place] CHLAMYDIA 4 [facility] HEALTH TRACHOMAT [facility] IS T T AMPLIFIED PROBE TQ IADNA 27832 [facility] NEISSERIA 4 [facility] GONORRHOE [facility] AE T T AMPLIFIED PROBE TQ INJECTION J3370 [facility] 4 Y Y VANCOMYCI [facility] N [place] [address] [place] [address] [facility] 4 Y Y THERAPY/P [facility] ROPHYLAXI S /DX 1ST TO 1 HR INCISION 76104 [facility] & 4 JOCELYNN OMERO DRAINAGE EMERGENCY ABSCESS PHYS SIMPLE/SI NGLE RADIOLOGI 63058 BESALVADORKE D BESIN D C EXAM 4 CHEST 2 VIEWS FRONTAL&L ATERAL OPHTH 58502 SCIFRES SCIFRES MEDICAL 4 ANG ANG XM&EVAL COMPRHNSV ESTAB PT 1/> FITTING 84248 SCIFRES SCIFRES SPECTACLE 4 ANG ANG S XCPT APHAKIA MONOFOCAL 1 VISN V2103 SCIFRES SCIFRES PLANO 4 ANG ANG TO+/-4.00 D SPHER 0.12-2.00 D CYL EA LENS V2784 SCIFRES SCIFRES POLYCARBO 4 ANG ANG ROCHELLE OR EQUAL ANY INDEX PER LENS SCRATCH V2760 SCIFRES SCIFRES RESISTANT 4 ANG ANG COATING PER LENS FRAMES V2020 SCIFRES SCIFRES PURCHASES 4 ANG ANG Encounters Encounter Start End Date Code Location Performer Type Date OFFICE 61629 [facility] 7 7 GASTROENT ION EROLOGY NEW/ESTAB PATIENT 60 MIN OFFICE 58476 T B T B OUTPATIEN 7 7 CLINIC CLINIC T VISIT 5 [facility] [place] MINUTES COUNT INCLUDES THE [facility] OFFICE 58602 T B T B OUTPATIEN 7 7 CLINIC CLINIC T NEW 10 [facility] MINUTES CO HLTH CO HLTH OFFICE 92319 TIESHA SANTANA OUTPATIEN 7 7 [place] T VISIT COMMUNITY 10 HEALT MINUTES [facility]OSP[facility] - 7 7 HOSPITALS OUTPATIEN INC. T OFFICE 07531 TIESHA ESTHER OUTPATIEN 7 7 [place] T VISIT COMMUNITY 10 HEALT MINUTES EMERGENCY 06615 [facility] DEPT 7 7 JOCELYNN VISIT EMERGENCY HIGH SERV SEVERITY& THREAT FUNCJ EMERGENCY 62777 [facility]ADE[facility] BRO 7 7 EMERGENCY DEPARTMEN MEDICINE T VISIT HIGH/URGE NT SEVERITY EMERGENCY 89575 [facility] DEPT 7 7 JOCELYNN VISIT EMERGENCY HIGH PHYS SEVERITY& THREAT FUNCJ OFFICE 01503 [facility] OUTPATIEN 7 7 PHYSICIAN T VISIT S GROUP 15 MINUTES INITIAL 77866 [facility] PREVENTIV 7 7 PHYSICIAN E S GROUP MEDICINE NEW PT AGE [id number] [facility] - 7 7 [facility] OUTPATIEN INC T OFFICE 91702 [facility] OUTPATIEN 7 7 [facility] T VISIT 5 INC MINUTES OFFICE 74679 [facility] OUTPATIEN 7 7 [facility] T VISIT 5 INC MINUTES HOSPITAL [facility] - 7 7 [facility] OUTPATIEN INC T OFFICE 87397 [facility] OUTPATIEN 6 6 CAT T VISIT COMMUNITY 15 HEALTH C MINUTES OFFICE 28921 [facility] OUT[facility] 6 6 N AND T VISIT COMMUNITY 15 HEALTH C MINUTES EMERGENCY [address] 6 6 MEDICAL DEPARTMEN SERV T VISIT FOUNDATIO MODERATE N SEVERITY OFFICE 10617 [facility] YULIYA OUTPATIEN 6 6 STA T VISIT COMMUNITY 15 HEALTH C MINUTES [facility]OS[facility] 78577 [facility] 6 6 JOCELYNN VISIT EMERGENCY HIGH PHYS SEVERITY& THREAT FUNCJ OFFICE 26434 [facility] VISIT HLTH DEPT HLTH DEPT 10 DANI DANI MINUTES OFFICE 49817 [facility] OUTPATIEN 4 4 CO [facility] CO HEALTH T NEW 20 MINUTES DEPARTMEN DEPARTMEN T T EMERGENCY 51781 [facility] 4 4 JOCELYNN DEPARTMEN EMERGENCY T VISIT PHYS HIGH/URGE NT SEVERITY [facility] 43109 [facility] 4 4 Y [facility] T VISIT MODERATE SEVERITY EMERGENCY 79606 [facility] 4 4 JOCELYNN OMERO DEPARTMEN EMERGENCY T VISIT PHYS MODERATE SEVERITY EMERGENCY 65245 [facility] DEPT 4 4 JOCELYNN VISIT EMERGENCY HIGH PHYS SEVERITY& THREAT FUNCJ OFFICE 64822 [facility] OUTPATIEN 4 4 PHYSICIAN T NEW 20 S GROUP MINUTES EMERGENCY 52091 [facility] 4 4 PAT PAT DEPARTMEN T VISIT HIGH/URGE NT SEVERITY EMERGENCY 13805 [facility] 4 4 [facility] DEPARTMEN T VISIT HIGH/URGE NT SEVERITY
--- OUTSIDE RECORDS SUMMARY | 2017-04-09 23:11 | External Medical Summary Rpt | CCD ---
Author Author , RIGO Lovell RIGO Address Unknown Phone [email or web address] Care Team Providers Care Beauty Sales Advisor Name Role Phone ALFARIS MOH, ALFARIS Unavailable Unavailable MOH ALFARIS MOH, ALFARIS Unavailable Unavailable MOH BEINEKE D, BEINEKE D Unavailable Unavailable BEINEKE D, BEINEKE D Unavailable Unavailable [facility] Unavailable Unavailable [facility]ATORIES, [facility] Unavailable Unavailable LAB[facility]ATORIES, [facility] Unavailable Unavailable HEALTH C, [facility] Unavailable Unavailable DEPARTMENT, [facility] DEPARTMENT [facility] Unavailable Unavailable DEPARTMENT, [facility] DEPARTMENT CRECELIUS, CRECELIUS Unavailable Unavailable DAY OMERO, DAY Unavailable Unavailable OMERO HARPEL, HARPEL Unavailable Unavailable [facility] Unavailable Unavailable INC, [facility] RAMACHANDRAN, RAMACHANDRAN Unavailable Unavailable [facility], Unavailable Unavailable [facility] DENTON, DENTON Unavailable Unavailable [facility] Unavailable Unavailable MEDICAL G, [facility] SANABRIA, SANABRIA Unavailable Unavailable ESTHER, ESTHER Unavailable Unavailable [facility], Unavailable Unavailable [facility] Un[facility], Unavailable Unavailable [facility] [...] P, ANGEL WAQAR SHORT & KIRK P [facility], Unavailable Unavailable [facility] Unavailable Unavailable DEPT [facility] DEPT [facility] Unavailable [facility]available DEPT [facility] DEPT [facility] Unavailable Unavailable KWABENA [...] Z111 ENCOUNTER 01-27-2017 T B CLINIC SCREENING [place] [facility] RESPIRATORY TUBERCULOSI S E669 OBESITY 01-21-2017 [facility] UNSPECIFIED [facility] R109 UNSPECIFIED 01-21-2017 [facility] ABDOMINAL [place] PAIN [facility] Z6829 BODY MASS 01-21-2017 [facility] INDEX BMI [place] 29.0-29.9 COMM[facility] ADULT [facility] E663 OVERWEIGHT 01-15-2017 [facility] B1920 UNS VIRAL 12-24-2016 [facility] HEPATITIS C WAQAR WITHOUT SHORT & HEPATIC KIRK P COMA R195 OTHER FECAL 12-24-2016 [facility] WAQAR ABNORMALITI SHORT & ES KIRK P B9689 OTH SPEC 11-27-2016 [facility] BACTERIAL PHYSICIANS AGNT CAUSE GROUP DZ CLASSIFIED ELSW N760 ACUTE 11-27-2016 [facility] VAGINITIS PHYSICIANS GROUP [id number] ENCOUNTER 11-10-2016 [facility] HAY CHOPPER EXAM PHYSICIANS GENERAL RTN GROUP W/ABNORMAL FIND [id number] ENCOUNTER 11-10-2016 [facility] EXAM [facility] GENERAL RTN LABORATORIE W/O S ABNORMAL FIND Z113 ENCOUNTER 11-10-2016 [facility] SCREEN PHYSICIANS INFECTIONS GROUP SEXL MODE TRANSMISSN G04188 ENCOUNTER 11-10-2016 [facility] INITIAL PHYSICIANS PRESCRIPTIO GROUP N CONTRACEPTI VE UNS [id number] ALLERGY 11-02-2016 [facility] INITIAL [...] J309 ALLERGIC 05-27-2016 [facility] UNSPECIFIED [id number] CELLULITIS 04-22-2016 [facility]OWER [facility] C [id number] INSECT BITE 04-22-2016 [facility] RIGHT COMMUNITY THIGH HEALTH C INITIAL ENCNTR K35942 CUTANEOUS 04-18-2016 [facility] ABSCESS OF COMMUNITY RIGHT LOWER HEALTH C LIMB Z6832 BODY MASS 04-15-2016 [facility] INDEX BMI COMMUNITY 32.0-32.9 HEALTH C ADULT K922 GASTROINTES 04-02-2016 [facility] TINAL N EMERGENCY HEMORRHAGE PHYS UNSPECIFIED H5213 MYOPIA 12-26-2015 KYLIE STEVENSON BILATERAL J59891 ENCOUNTER 12-24-2015 [facility] INITIAL DISTRICT PRESCRIPTIO [facility] DEPT N DANI CONTRACEPT PILLS 89898 CONDYLOMA 05-30-2014 [facility] DE[facility] 51635 UNSPECIFIED 05-30-2014 [place] [facility] DEPART[facility] VULVOVAGINI TIS 66517 ASTHMA, 03-23-2014 [facility] , UNSPECIFIED STATUS 6824 CELLULITIS& 03-23-2014 [facility] HAND EXCEPT FINGERS&ZA MB 4660 ACUTE 02-01-2014 [facility] BRON[facility] N EMERGENCY PHYS 5990 URINARY 02-01-2014 [facility] TRACT N EMERGENCY INFECTION PHYS SITE NOT SPECIFIED 41561 WHEEZING 02-01-2014 [facility] N EMERGENCY PHYS 7862 COUGH 02-01-2014 BEINEKE D 68479 UNSPECIFIED 12-16-2013 [facility] PAT GENITAL HERPES 85227 HERPETIC 12-16-2013 [facility] PAT VULVOVAGINI TIS 6235 LEUKORRHEA 12-16-2013 [facility] PAT NOT SPECIFIED INFECTIVE 3671 MYOPIA 11-09-2013 KYLIE ANG 5589 OTH&UNSPEC 09-14-2013 [facility] MOH NONINFECTIO US GASTROENTER ITIS&COLITI S 95723 ABDOMINAL 09-14-2013 [facility] MOH PAIN RIGHT LOWER [...] EN RA 90 17 17 61 S [place] 5 18 #3 DE 77 6 10 [...] Procedure DOS Code Location Performer Comment ANE 20511 [facility] UPPER GI 7 [facility] ENDOSCOPY MEDICAL PROXIMAL G TO DUODENUM SKIN TEST 11721 T B T B 7 [facility] [place] [address] DIAGNOSTI KWABENA ABDOMINAL 7 C IMAGING REAL ALLIANCE TIME W/[place] [address] ANGEL CRECELIUS ABDOMINAL 7 WAQAR REAL SHORT & TIME KIRK P W/[place] [address] ANGEL SANABRIA ABDOMEN & 7 WAQAR PELVIS SHORT & W/O KIRK P CONTRAST MATERIAL SMR PRIM 95748 [facility] SRC WET 7 PHYSICIAN [place] GROUP NFCT AGT IADNA 95606 BIO BIO CHLAMYDIA 7 RE[facility]ERNCE REFERNCE LABORATOR LABORATOR TRACHOMAT IES IES IS AMPLIFIED PROBE TQ IADNA 26590 BIO BIO GARDNEREL 7 REFERNCE REFERNCE LA LABORATOR LABORATOR VAGINALIS IES IES QUANTIFIC ATION IADNA 55812 [facility] HAR[facility]L HERPES 7 PHYSICIAN SIMPLX S GROUP VIRUS DIRECT PROBE TQ SMR PRIM 43135 [facility] WET 7 PHYSICIAN PHYSICIAN [place] S GROUP S GROUP NFCT AGT URINLS 26421 [facility] DIP 7 PHYSICIAN STICK/TAB S GROUP LET REAGNT NON-AUTO MICRSCPY URINE 06532 [facility] HARPEL 7 PHYSICIAN TEST S GROUP VISUAL COLOR CMPRSN METHS IADNA 35764 BIO BIO PRISCILA 7 REFERNCE REFERNCE SPECIES LABORATOR LABORATOR AMPLIFIED IES IES PROBE TQ CYTP C/V 72989 [facility] AUTO THIN 7 REFERNCE REFERNCE LYR LABORATOR LABORATOR PREPJ SCR IES IES MNL RESCR PHYS CULTURE 24302 [facility] CHLAMYDIA 7 PHYSICIAN ANY S GROUP SOURCE IADNA 93525 BIO BIO TRICHOMON 7 REFERNCE REFERNCE LABORATOR LABORATOR VAGINALIS IES IES AMPLIFIED PROBE TECH IADNA NOS 37262 BIO BIO 7 REFERNCE REFERNCE QUANTIFIC LABORATOR LABORATOR ATION IES IES EACH ORGANISM IAADIADOO 05285 [facility] HAR[facility] 7 PHYSICIAN TRICHOMON S GROUP VAGINALIS IADNA 97070 BIO BIO HERPES 7 REFERNCE REFERNCE SOMPLX LABORATOR LABORATOR VIRUS IES IES AMPLIFIED PROBE TQ IADNA 52285 BIO BIO NEISSERIA 7 REFERNCE REFERNCE LABORATOR LABORATOR GONORRHOE IES IES AE AMPLIFIED PROBE TQ IADNA NOS 54850 BIO BIO 7 REFERNCE REFERNCE AMPLIFIED LABORATOR LABORATOR PROBE TQ IES IES EACH ORGANISM IADNA 15135 [facility] NEISSERIA 7 PHYSICIAN S GROUP GONORRHOE AE DIRECT PROBE TQ THERAPEUT 63174 [facility] IC 7 [facility] PROPHYLAC INC INC TIC/DX INJECTION SUBQ/IM UNCLASSIF J3490 [facility] IED DRUGS 7 [facility] INC INC UNCLASSIF J3490 [facility] IED DRUGS 7 [facility] INC INC THERAPEUT 44644 [facility] IC 7 [facility] PROPHYLAC INC INC TIC/DX INJECTION SUBQ/IM URNLS DIP 86370 [facility] PAREDES 7 [facility] STICK/TAB INC INC LET RGNT AUTO W/O MICROSCOP Y VIRUS 31875 [facility] TISS CUL 7 [facility]OS[facility] INOCULATI INC INC ON CYTOPATHI C EFFECT IADNA 69543 [facility] 6 DIAGNOSTI DIAGNOSTI C QUANT CS CS & REVERSE TRANSCRIP TION HEPATITIS 77880 [facility] C 6 DIAGNOSTI DIAGNOSTI ANTIBODY CS CS IADNA 21746 [facility] CHLAMYDIA 6 DIAGNOSTI DIAGNOSTI CS CS TRACHOMAT IS AMPLIFIED PROBE TQ CULTURE 16239 [facility] BCT 6 DIAGNOSTI DIAGNOSTI ISOL&PRSM CS CS PTV ID ISOLATE EA URINE CULTURE 66996 [facility] BACTERIAL 6 DIAGNOSTI DIAGNOSTI CS CS QUANTTATI VE COLONY COUNT URINE IADNA 09480 [facility] NEISSERIA 6 DIAGNOSTI DIAGNOSTI CS CS GONORRHOE AE AMPLIFIED PROBE TQ OPH 30048 [facility] MEDICAL 6 ANG ANG XM&EVAL COMPRHNSV ESTAB PT 1/> CONTRACEP A4269 [facility] 6 [facility] SUPPLY [facility] DEPT [facility] DEPT SPERMICID DANI DANI E EACH URINE 71644 [facility] 6 [facility] TEST [facility] DEPT [facility] DEPT VISUAL DANI DANI COLOR CMPRSN METHS CONTRACEP A4267 [facility] TIVE 6 [facility] SUPPLY [facility] DEPT [facility] DEPT CONDOM DANI DANI MALE EACH CONTRACEP S4993 [facility] TIVE 6 [facility] PILLS FOR [facility] DEPT [facility] DEPT DANI DANI CONTROL WET Q0111 [facility] J[facility]E 4 [facility] CERV/SKIN T T SPECIMENS URINE 84321 [facility] 4 [facility] TEST VISUAL [facility] COLOR T T CMPRSN METHS IADNA 49252 [facility] [facility] CHLAMYDIA 4 [facility] TRACHOMAT [facility] IS T T AMPLIFIED PROBE TQ IADNA 55632 [facility] [place] NEISSERIA 4 [facility] GONORRHOE [facility] AE T T AMPLIFIED PROBE TQ INJECTION J3370 [facility] 4 Y Y VANCOMYCI [facility] N [place] [address] [place] [address] [facility] 4 Y Y THERAPY/P [facility] ROPHYLAXI S /DX 1ST TO 1 HR INCISION 78127 [facility] & 4 JOCELYNN OMERO DRAINAGE EMERGENCY ABSCESS PHYS SIMPLE/SI NGLE RADIOLOGI 91680 BESALVADORKE D BESIN D C EXAM 4 CHEST 2 VIEWS FRONTAL&L ATERAL OPHTH 94998 SCIFRES SCIFRES MEDICAL 4 ANG ANG XM&EVAL COMPRHNSV ESTAB PT 1/> FITTING 34809 SCIFRES SCIFRES SPECTACLE 4 ANG ANG S [...] Date Code Location Performer Type Date OFFICE 75617 [facility] 7 7 GASTROENT ION EROLOGY NEW/ESTAB PATIENT 60 MIN OFFICE 12256 T B T B OUTPATIEN 7 7 CLINIC CLINIC T VISIT 5 [place] MINUTES [facility] OFFICE 02792 T B T B OUTPATIEN 7 7 [facility] OFFICE 54714 TIESHA SANTANA OUTPATIEN 7 7 [place] T VISIT COMMUNITY 10 HEALT MINUTES HOSP[facility] PARADOX - 7 7 HOSPITALS OUTPATIEN INC. T OFFICE 12716 TIESHA ESTHER OUTPATIEN 7 7 [place] T VISIT COMMUNITY 10 HEALT MINUTES EMERGENCY 70722 [facility] DEPT 7 7 JOCELYNN VISIT EMERGENCY HIGH SERV SEVERITY& THREAT FUNCJ EMERGENCY 91041 MADELEINE BRO 7 7 EMERGENCY DEPARTMEN MEDICINE T VISIT HIGH/URGE NT SEVERITY EMERGENCY 00203 [facility] DEPT 7 7 JOCELYNN VISIT EMERGENCY HIGH PHYS SEVERITY& THREAT FUNCJ OFFICE 95485 [facility] OUTPATIEN 7 7 PHYSICIAN T VISIT S GROUP [address] [facility] PREVENTIV 7 7 PHYSICIAN E S GROUP MEDICINE NEW PT AGE 18-39YRS [facility] LENA - 7 7 MEM HOSP OUTPATIEN INC T OFFICE 57821 [facility] OUT[facility]IEN 7 7 [facility] T VISIT 5 INC MINUTES OFFICE 92525 [facility] OUT[facility]IEN 7 7 [facility] T VISIT 5 INC MINUTES HOSPITAL LE[facility] - 7 7 [facility] OUTPATIEN INC T OFFICE 01859 [facility] OUTPATIEN 6 6 CAT T VISIT COMMUNITY 15 HEALTH C MINUTES OFFICE 00269 [facility] OUT[facility] 6 6 N AND T VISIT COMMUNITY 15 HEALTH C MINUTES EMERGENCY [address] 6 6 MEDICAL DEPARTMEN SERV T VISIT FOUNDATIO MODERATE N SEVERITY OFFICE 88103 [facility] YULIYA OUTPATIEN 6 6 STA T VISIT COMMUNITY 15 HEALTH C MINUTES [facility]OS[facility] 09971 [facility] DEPT 6 6 JOCELYNN VISIT EMERGENCY HIGH PHYS SEVERITY& THREAT FUNCJ OFFICE 23012 [facility] VISIT HLTH DEPT HLTH DEPT 10 DANI DANI MINUTES OFFICE 60914 [facility] OUTPATIEN 4 4 [facility] T NEW 20 MINUTES DEPARTMEN DEPARTMEN T T EMERGENCY 30519 [facility] ALL 4 4 JOCELYNN DEPARTMEN EMERGENCY T VISIT PHYS HIGH/URGE NT SEVERITY [facility] 38876 UNIVERSIT [address] [facility] T VISIT MODERATE SEVERITY EMERGENCY 50390 [facility] 4 4 JOCELYNN OMERO DEPARTMEN EMERGENCY T VISIT PHYS MODERATE SEVERITY EMERGENCY 37443 [facility] DEPT 4 4 JOCELYNN VISIT EMERGENCY HIGH PHYS SEVERITY& THREAT FUNCJ OFFICE 46360 [facility] OUTPATIEN 4 4 PHYSICIAN T NEW 20 S GROUP MINUTES EMERGENCY 52317 [facility] 4 4 PAT PAT DEPARTMEN T VISIT HIGH/URGE NT SEVERITY EMERGENCY 36078 [facility] AL[facility] 4 4 [facility] DEPARTMEN T VISIT HIGH/URGE NT SEVERITY
--- OUTSIDE RECORDS SUMMARY | 2017-04-09 23:12 | External Medical Summary Rpt | CCD ---
Author Author , RIGO SIERRA Address Unknown Phone [email or web address] Immunization Name Date Rout CVX Reac Dose Comm Prov Is Faci e tion ent ider Refu lity Give sed n Tdap - 115 999 Hist H149 No H149 , 03-17 ori Adso 13 al rbed Info rmat ion - Sour ce Unsp ecif ied MCV4 -2 147 999 Hist H149 No H149 UF 03-17 oric 13 al Info rmat ion - Sour ce Unsp ecif ied MMR -2 3 999 Hist H149 No H149 03-17 oric 13 al Info rmat ion - Sour ce Unsp ecif ied Hep -2 8 999 Hist H149 No H149 B, 03-17 ori ped/ al adol Info rmat ion - Sour ce Unsp ecif ied
--- OUTSIDE RECORDS SUMMARY | 2017-04-09 23:12 | External Medical Summary Rpt | CCD ---
Author Author , RIGO SIERRA Address Unknown Phone [email or web address] Immunization Name Date Rout CVX Reac Dose [...]
--- OUTSIDE RECORDS SUMMARY | 2017-04-09 23:12 | External Medical Summary Rpt ---
Author Author RIGO Che, [employer] Organization [employer] Address Unknown [...] MAY HAVE ADVERSE PSYCHO- SOCIAL IMPACT, [facility] RETESTI NG.\.br \This report contain s [...] No No No No Feb 01 OR MATTRESS INSPECTOR informa informa informa informa 2012 tion in [...] tion that must be protect ed in [facility] nce with the Health Insuran ce oJanne gonzalez and Account ability Act. CHLAMYDIA AND GONORRHEA TESTING Observa Value Referen Units Interpr Notes Date tion ce etation Range COLLECT D. ANTUNEZ No No No No Feb 01 OR MATTRESS INSPECTOR informa informa informa informa 2012 tion in [...] cation method Neisser Pending No No No \.br\Feb 01 ia informa informa informa is 2011 gonorrh tion in tion in tion in report 8:30 AM oeae source source source contain rRNA data data data s [Presen patient ce] in Unspeci informa fied tion specime that n by must be Probe & target protect ed in amplifi accorda cation nce method with the Health Insuran ce Portabi lity and Account ability Act.
--- OUTSIDE RECORDS SUMMARY | 2017-04-09 23:12 | External Medical Summary Rpt ---
[...] MAY HAVE ADVERSE PSYCHO- SOCIAL IMPACT, [facility] RETESTI NG.\.br \This report [...] No No No No Feb 01 OR CUSTOMER RELATIONS ADVISOR informa informa informa informa 2012 tion in [...] tion that must be protect ed in [facility] nce with the Health Insuran ce Joanne gonzalez and Account ability Act. CHLAMYDIA AND GONORRHEA TESTING Observa Value Referen Units Interpr Notes Date tion ce etation Range COLLECT D. ANTUNEZ No No No No Feb 01 OR CUSTOMER RELATIONS ADVISOR informa informa informa informa 2012 tion in [...]
== END 2017-04-04 21:01 | disposition home or self-care (01) ==
LOC: UTC 20:42
DX: A08.4 Viral intestinal infection, unspecified (principal); F17.210 Nicotine dependence, cigarettes, uncomplicated; Z88.0 Allergy status to penicillin; Z88.6 Allergy status to analgesic agent

== ENCOUNTER 2017-04-15 20:34 | Emergency (ER) | payer MEDICAID ==
[~2017-04-15] VITALS: Ht 165.1 cm; Wt 75.8 kg
--- OUTSIDE RECORDS SUMMARY | 2017-04-15 20:42 | External Medical Summary Rpt | CCD ---
Author Author , RIGO Organization [facility] Address Unknown Phone Care Team Providers Care Nursing Attendant Name Role Phone ALFARIS MOH, ALFARIS Unavailable Unavailable MOH ALFARIS MOH, ALFARIS Unavailable Unavailable MOH BEINEKE D, BEINEKE D Unavailable Unavailable BEINEKE D, BEINEKE D Unavailable Unavailable [facility] Unavailable Unavailable [facility]ATOR[facility], [facility] Unavailable Unavailable LAB[facility]ATORIES, [facility] Unavailable [facility]available [facility] Unavailable Unavailable DEPARTMENT, [facility] DE[facility] Unavailable Unavailable DEPARTMENT, [facility] CRECELIUS, CRECELIUS Unavailable Unavailable LENKA HERNANDEZ MD, Unavailable Unavailable SHAY CAVAZOS MD Unavailable Unavailable OM[facility] HARROBI HARPEL Unavailable Unavailable [facility] Unavailable Unavailable INC, [facility] RAMACHANDRAN, RAMACHANDRAN Unavailable Unavailable [facility], Unavailable Unavailable [facility] DENTON, DENTON Unavailable Unavailable [facility] & Unavailable [facility], [facility] Unavailable Unavailable MEDICAL G, [facility] SANABRIA, SANABRIA Unavailable Unavailable ESTHER, ESTHER Unavailable Unavailable Yvette Monae MD, Unavailable Unavailable Yvette Monae MD [facility], Unavailable Unavailable [facility] Unavailable Unavailable INC., [facility] [place] Unavailable Unavailable [facility], [place] [facility], Unavailable Unavailable [facility] [...] HLTH, T [facility] ANGEL WAQAR SHORT & Unavailable Unavailable KIRK P, ANGEL WAQAR SHORT & KIRK P [facility], Unavailable Unavailable [facility] Unavailable Unavailable DEPT [facility] DEPT [facility] Unavailable Unavailable DEPT [facility], [facility] DEPT DANI WELLS SHA, WELLS SHA Unavailable Unavailable SHAJI AND, Unavailable Unavailable SHAJI AND Purpose Continuity of Care Document - 02-02-2012 through 2016 Problems Code Diagnosis DOS Provider Status R112 NAUSEA WITH 02-10-2017 [facility] UNSPECIFIED MEDICAL G B182 CHRONIC 02-08-2017 [facility] V[facility]AL [facility]STROENTER HEPATITIS C OLOGY R1011 RIGHT UPPER 02-08-2017 [facility] PAIN OLOGY R1033 PERIUMBILIC 02-08-2017 [facility] AL PAIN GASTROENTER OLOGY Z111 ENCOUNTER 01-27-2017 [facility] SCREENING FOLLETT FOR CO [facility] RESPIRATORY TUBERCULOSI S E669 OBESITY 01-21-2017 [facility]PECIFIED [facility] R109 UNSPECIFIED 01-21-2017 [place] ABDOMINAL [place] PAIN [facility] Z6829 BODY MASS 01-21-2017 [place] INDEX BMI [place] 29.0-29.9 COMMUNITY ADULT HEALT E663 OVERWEIGHT 01-15-2017 [place] [facility] B1920 UNS VIRAL 12-24-2016 [facility] HEPATITIS C WAQAR WITHOUT SHORT & HEPATIC KIRK P COMA R195 OTHER FECAL 12-24-2016 AN[facility] WAQAR ABNORMALITI SHORT & ES KIRK P Z880 ALLERGY 12-24-2016 [facility] STATUS TO HOSPITAL & [facility] Z885 ALLERGY 12-24-2016 [facility] & [facility]OT[facility] AGENT STATUS B9689 OTH SPEC 11-27-2016 [facility] BACTERIAL PHYSICIANS AGNT CAUSE GROUP DZ CLASSIFIED ELSW N760 ACUTE 11-27-2016 [facility] R96888 ENCOUNTER 11-10-2016 [facility] LIQUOR GRINDING MILL OPERATOR EXAM PHYSICIANS GENERAL RTN GROUP W/ABNORMAL FIND S28229 ENCOUNTER 11-10-2016 [facility] LIQUOR GRINDING MILL OPERATOR EXAM RE[facility]CE GENERAL RTN LABORATORIE W/O S ABNORMAL FIND Z113 ENCOUNTER 11-10-2016 [facility] SCREEN PHYSICIANS INFECTIONS GROUP SEXL MODE TRANSMISSN J87490 ENCOUNTER 11-10-2016 [facility] INITIAL PHYSICIANS PRESCRIPTIO GROUP N CONTRACEPTI VE UNS [id number] ALLERGY 11-02-2016 [facility]NSPECIFIED [facility] INITIAL [...] J309 ALLERGIC 05-27-2016 [facility] UNSPECIFIED R21514 CELLULITIS 04-22-2016 [facility] RIGHT [facility] C [id number] INSECT BITE 04-22-2016 [facility] INITIAL ENCNTR L10002 CUTANEOUS 04-18-2016 [facility] ABSCESS OF [facility] LIMB Z6832 BODY MASS 04-15-2016 [facility] INDEX BMI COMMUNITY 32.0-32.9 HEALTH C ADULT K922 GASTROINTES 04-02-2016 [facility] TINAL N EMERGENCY HEMORRHAGE PHYS UNSPECIFIED H5213 MYOPIA 12-26-2015 [facility] ANG BILATERAL Q52333 ENCOUNTER 12-24-2015 [facility] PRESCRIPTIO [facility] DEPT N DANI CONTRACEPT PILLS 56970 CONDYLOMA 05-30-2014 [place] [facility] DE[facility] 34840 UNSPECIFIED 05-30-2014 [place] [facility] DEPART[facility] VULVOVAGINI TIS 76480 ASTHMA, 03-23-2014 [facility] , UNSPECIFIED STATUS 6824 CELLULITIS& 03-23-2014 [facility] HAND EXCEPT FINGERS&ZA MB 4660 ACUTE 02-01-2014 [facility] BRON[facility]IS N EMERGENCY PHYS 5990 URINARY 02-01-2014 [facility] TRACT N EMERGENCY INFECTION PHYS SITE NOT SPECIFIED 12433 WHEEZING 02-01-2014 [facility] N EMERGENCY PHYS 7862 COUGH 02-01-2014 BEINEKE D 51597 UNSPECIFIED 12-16-2013 [facility] PAT GENITAL HERPES 26920 HERPETIC 12-16-2013 [facility] PAT VULVOVAGINI TIS 6235 LEUKORRHEA 12-16-2013 [facility] PAT NOT SPECIFIED INFECTIVE 3671 MYOPIA 11-09-2013 SCILAKESHA STEVENSON 5589 OTH&UNSPEC 09-14-2013 [facility] NONINFECTIO US GASTROENTER ITIS&COLITI S 12403 ABDOMINAL 09-14-2013 [facility] PAIN RIGHT LOWER QUADRANT 305.1 305.1 02-04-2013 L[facility] TOBACCO USE [facility] DISORDER Hospital 599.0 599.0 URIN 02-04-2013 [place] TRACT [facility] INFECTION Hospital NOS 850.0 850.0 02-04-2013 Lena CONCUSSION [facility] W/O COMA Hospital 866.00 866.00 02-04-2013 [facility] KIDNEY [facility] INJURY [facility] NOS-CLOSED 920 920 02-04-2013 Lena CONTUSION [facility] FACE/SCALP/ Hospital NCK E819.0 E819.0 02-04-2013 [place] 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 [facility] 493.90 493.90 02-03-2013 Lena ASTHMA, [facility] UNSPECIFIED Hospital 847.0 847.0 02-03-2013 Lena SPRAIN OF [facility] NECK [facility] 847.2 847.2 02-03-2013 Lena SPRAIN [facility] LUMBAR Hospital REGION E815.0 E815.0 MV 02-03-2013 Lena BEAU W OTH [facility] OBJ-AUTO BODY REPAIR TEACHER [facility] E849.5 E849.5 02-03-2013 Lena ACCID ON [facility] WAY V14.0 V14.0 02-03-2013 Lena HX-PENICILL [facility] IN ALLERGY Hospital 466.0 466.0 ACUTE 10-04-2012 [place] BRONCHITIS [facility] Allergies, Adverse Reactions, Alerts Type [...] EN RA 90 17 17 61 S OK 5 18 #3 DE 77 6 10 [...] 013 mmoL/L ed SerPl-s 23:25 Cnc CO2 09-2 26 21.0-32 complet SerPl-s 013 mmoL/L .0 ed Cnc 23:25 Calcium 02-03-2 9.1 8.5-10. complet 013 mg/dL 1 ed SerPl-m 23:25 Cnc Prot 02-03- 7.4 6.4-8.2 complet SerPl-m 013 gm/dL ed [...] complet SerPl-c 013 ed Cnc 23:25 ALP 02-03- 105 U/L 50-136 complet SerPl-c 013 ed [...] Bld 013 M/mm3 ed Auto 23:25 Hgb 15.4 12.2-16 complet Bld-mCn 013 g/dL .2 ed c 23:25 Hct Fr 47.5 % 37.0-47 complet Bld 013 .0 ed 23:25 MCV RBC 08-09-2 87.7 fl 82.2-97 complet 013 .8 ed 23:25 MCH RBC 08-09-2 28.5 pg 27-31.2 complet Qn 013 ed Auto 23:25 MEAN 08-09-2 32.5 31.8-35 complet CORPUSC 013 g/dl .4 ed ULAR 23:25 HGB CONC RDW RBC 08-09-2 15.0 % 11.5-17 complet Auto 013 .5 ed 23:25 Platele 08-09-2 215 142-424 complet t Bld 013 K/mm3 ed Ql 23:25 Manual MEAN 08-09-2 8.9 fl 7.4-10. complet PLATELE 013 4 ed T 23:25 VOLUME Granulo 08-09-2 89.7 % 37.0-80 complet cytes 013 .0 ed Fr Bld 23:25 Auto LYMPH % 08-09-2 6.0 % 10-50.0 complet 013 ed 23:25 Monocyt 08-09-2 3.1 % 1.7-9.3 complet es Fr 013 ed Bld 23:25 Auto Eosinop 08-09-2 1.1 % 0.1-12. complet hil Fr 013 0 ed Bld 23:25 Auto Basophi 08-09-2 0.1 % 0.1-2.0 complet ls Fr 013 ed Bld 23:25 Auto Granulo 08-09-2 15.7 1.8-7.8 complet cytes # 013 K/mm3 ed Bld 23:25 Auto Lymphoc 08-09-2 1.0 0.7-4.5 complet ytes Fr 013 K/mm3 ed Bld 23:25 Auto Monocyt 08-09-2 0.6 0.1-1.0 complet es # 013 K/mm3 ed Bld 23:25 Auto Eosinop 08-09-2 0.2 0.0-0.4 complet hil # 013 K/mm3 ed Bld 23:25 Auto Basophi 08-09-2 0.0 0-0.2 complet ls # 013 K/MM3 ed Bld 23:25 Auto B-HCG Ur Ql (02-03-2013 02:00) B-HCG 08--2 NEGATIV NEG complet Ur Ql 013 E [...] 08:30) COLLECT D. ANTUNEZ complet OR 012 SENIOR IOS DEVELOPER ed 08:30 ETHNICI WHITE, complet TY 012 [...] Procedure DOS Code Location Performer Comment ANES 45044 [facility] UPPER GI 7 [facility] ENDOSCOPY MEDICAL PROXIMAL G TO DUODENUM SKIN TEST 23317 T B T B 7 CLINIC CLINIC TUBERCULO [place] [address] [place] TIME W/[place] [address] ANGEL CRE[address]ESHAIUS [address] REAL SHORT & TIME KIRK P W/IMAGE LIMITED INJECTION J2405 [address] ONDANSETR & ST & ST ON HCL [facility] PER 1 MG COLLECTIO 95874 [facility] VENOUS [address] [place] [address] BLO[address] & [address] & ST VENIPUNCT [facility] [place] URE THERAPEUT [address] [facility] IC [address] [place] [address] INJE[address] & [address] & ST IV PUSH [facility] EACH NEW [facility]PAT[facility] [address] PANEL & ST & ST [facility] INJECTION J1885 [address] KETOROLAC & ST & ST [facility] TROMETHAM INE PER [address] [facility] METABOLIC [address] [place] [address] PANEL & [address] & ST CALCIUM [facility] [address] [facility] LIPASE [address] [place] [address] & ST & [facility] [place] [address] ANGEL SANABRIA ABDOMEN & WAQAR PELVIS SHORT & W/O KIRK P CONTRAST MATERIAL THER 61499 [facility] PROPH/DX [address] [place] [address] [address] & [address] & ST PUSH [facility] SINGLE/1S T SBST/DRUG URNLS DIP [address] STICK/TAB & ST & ST LET RGNT [facility]IC[facility] AUTO W/O MICROSCOP Y SMR PRIM 26172 [facility] SRC WET 7 PHYSICIAN [place] NFCT AGT SMR PRIM 94476 [facility] SRC WET 7 PHYSICIAN PHYSICIAN [place] GROUP S GROUP NFCT AGT IADNA 36928 BIO BIO CHLAMYDIA 7 REFERNCE REFERNCE LABORATOR LABORATOR TRACHOMAT IES IES IS AMPLIFIED PROBE TQ IADNA 39212 BIO BIO GARDNEREL 7 REFERNCE REFERNCE LA LABORATOR LABORATOR VAGINALIS IES IES QUANTIFIC ATION IADNA 64846 [facility] HERPES 7 PHYSICIAN SIMPLX S GROUP VIRUS DIRECT PROBE TQ URINLS 41126 [facility] DIP 7 PHYSICIAN STICK/TAB S GROUP LET REAGNT NON-AUTO MICRSCPY URINE 04567 [facility]IAN TEST S GROUP VISUAL COLOR CMPRSN METHS IADNA 07772 BIO BIO NEISSERIA 7 REFERNCE REFERNCE LABORATOR LABORATOR GONORRHOE IES IES AE AMPLIFIED PROBE TQ CULTURE 27874 [facility] CHLAM[facility]IA 7 PHYSICIAN ANY S GROUP SOURCE IADNA 74176 BIO BIO PRISCILA 7 REFERNCE REFERNCE SPECIES LABORATOR LABORATOR AMPLIFIED IES IES PROBE TQ CYTP C/V 12254 [facility] B[facility] AUTO THIN 7 REFERNCE REFERNCE LYR LABORATOR LABORATOR PREPJ SCR IES IES MNL RESCR PHYS IADNA 00384 BIO BIO HERPES 7 REFERNCE REFERNCE SOMPLX LABORATOR LABORATOR VIRUS IES IES AMPLIFIED PROBE TQ IADNA 13265 [facility] NEISSERIA 7 PHYSICIAN S GROUP GONORRHOE AE DIRECT PROBE TQ IADNA NOS 52312 BIO BIO 7 REFERNCE REFERNCE AMPLIFIED LABORATOR LABORATOR PROBE TQ IES IES EACH ORGANISM IADNA 07590 BIO BIO TRICHOMON 7 REFERNCE REFERNCE LABORATOR LABORATOR VAGINALIS IES IES AMPLIFIED PROBE TECH IADNA NOS 15436 BIO BIO 7 REFERNCE REFERNCE QUANTIFIC LABORATOR LABORATOR ATION IES IES EACH ORGANISM IAADIADOO 18442 [facility] 7 PHYSICIAN TRICHOMON S GROUP VAGINALIS UNCLASSIF J3490 [facility] IED DRUGS 7 [facility] INC INC THERAPEUT 89410 [facility] PAREDES IC 7 [facility] PROPHYLAC INC INC TIC/DX INJECTION SUBQ/IM THERAPEUT 88113 [facility] PAREDES IC 7 [facility] PROPHYLAC INC INC TIC/DX INJECTION SUBQ/IM URNLS DIP 57716 [facility] PAREDES 7 [facility] STICK/TAB INC INC LET RGNT AUTO W/O MICROSCOP Y UNCLASSIF J3490 [facility] PAREDES IED DRUGS 7 [facility] INC INC VIRUS 41855 [facility] PAREDES TISS CUL 7 MEM HOS[facility] HOS[facility] INOCULATI INC INC ON CYTOPATHI C EFFECT IADNA 92147 [facility]PAT[facility]IS 6 DIAGNOSTI DIAGNOSTI C QUANT CS CS & REVERSE TRANSCRIP TION HEPATITIS 93585 [facility] C 6 DIAGNOSTI DIAGNOSTI ANTIBODY CS CS IADNA 99995 [facility] NEISSERIA 6 DIAGNOSTI DIAGNOSTI CS CS GONORRHOE AE AMPLIFIED PROBE TQ IADNA 36115 [facility] CHLAMYDIA 6 DIAGNOSTI DIAGNOSTI CS CS TRACHOMAT IS AMPLIFIED PROBE TQ CULTURE 31983 [facility] BACTERIAL 6 DIAGNOSTI DIAGNOSTI CS CS QUANTTATI VE COLONY COUNT URINE CULTURE 92053 [facility] BCT 6 DIAGNOSTI DIAGNOSTI ISOL&PRSM CS CS PTV ID ISOLATE EA URINE OPHTH 25930 SCIFRES SCIFRES MEDICAL 6 ANG ANG XM&EVAL COMPRHNSV ESTAB PT 1/> CONTRACEP A4269 [facility] T[facility] SUPPLY [facility] DEPT [facility] DEPT SPERMICID DANI DANI E EACH CONTRACEP A4267 [facility] TIVE 6 [facility] DISTRICT SUPPLY [facility] DEPT [facility] DEPT CONDOM DANI DANI MALE EACH URINE 17395 [facility] 6 [facility] DISTRICT TEST [facility] DEPT [facility] DEPT VISUAL DANI DANI COLOR CMPRSN METHS CONTRACEP S4993 [facility] TIVE 6 [facility] DISTRICT PILLS FOR [facility] DEPT [facility] DEPT DANI DANI CONTROL URINE 15061 [place] 4 [facility] TEST VISUAL DEPARTMEN DEPARTMEN COLOR T T CMPRSN METHS IADNA 13107 [facility] CHLAMYDIA 4 [facility] TRACHOMAT [facility] IS T T AMPLIFIED PROBE TQ WET Q0111 [place] JUNE 4 [facility] INCL PREP VAGINAL [facility]PARTPAT[facility] DEPARTPAT[facility] CERV/SKIN T T SPECIMENS IADNA 62030 [place] NEISSERIA 4 [facility] GONORRHOE DEPARTPAT[facility] DEPARTPAT[facility] AE T T AMPLIFIED PROBE TQ INJECTION J3370 [facility] 4 Y Y VANCOMYCI [facility] N H[place] [address] [place] [address] [facility] INFUSION 4 Y Y THERAPY/P [facility] ROPHYLAXI S /DX 1ST TO 1 HR INCISION 78537 [facility] & 4 JOCELYNN OMERO DRAINAGE EMERGENCY ABSCESS PHYS SIMPLE/SI NGLE RADIOLOGI 40673 BEINEKE D BEINEKE D C EXAM 4 CHEST 2 VIEWS FRONTAL&L ATERAL FRAMES V2020 SCIFRES SCIFRES PURCHASES 4 ANG ANG 1 VISN V2103 SCIF[facility] SCIFRES PLANO 4 ANG ANG TO+/-4.00 D SPHER 0.12-2.00 D CYL EA SCRATCH V2760 SCIFRES SCIFRES RESISTANT 4 ANG ANG COATING PER LENS LENS V2784 SCIFRES SCIFRES POLYCARBO 4 ANG ANG ROCHELLE OR EQUAL ANY INDEX PER LENS FITTING 16840 [facility] SCIFRES SPECTACLE 4 ANG ANG S XCPT APHAKIA MONOFOCAL OPHTH 03631 SCIFRES SCIFRES MEDICAL 4 ANG ANG XM&EVAL COMPRHNSV ESTAB PT 1/> Encounters Encounter Start End Date Code Location Performer Type Date OFFICE 85230 [facility] 7 7 GASTROENT ION EROLOGY NEW/ESTAB PATIENT 60 MIN OFFICE 26731 T B T B OUTPATIEN 7 7 CLINIC CLINIC T VISIT 5 [place] MINUTES CO [facility] CO [facility] OFFICE 05860 T B T B OUTPATIEN 7 7 CLINIC CLINIC T NEW 10 [place] MINUTES CO [facility] CO [facility] OFFICE 08638 [facility] 7 7 [place] T VISIT COMMUNITY [address] [facility] [place] [address] 7 [facility] T OFF[facility] 66507 [facility] OUTPATIEN 7 7 [place] T VISIT COMMUNITY 10 HEALT MINUTES EMERGENCY 60120 [facility] DEPT 7 7 JOCELYNN VISIT EMERGENCY HIGH SERV SEVERITY& THREAT FUNCJ EMERGENCY 19293 M[facility] BRO 7 7 EMERGENCY DEPARTMEN MEDICINE T VISIT HIGH/URGE NT SEVERITY EMERGENCY 04750 [facility] 7 [address] [facility] DEPARTMEN & [facility] T VISIT [facility] HIGH/URGE NT SEVERITY HOSPITAL [facility] - 7 [address] OUTPATIEN & [address] T [facility] EMERGENCY 50133 [facility] DEPT 7 7 JOCELYNN VISIT EMERGENCY HIGH PHYS SEVERITY& THREAT FUNCJ OFFICE 74253 [facility] OUTPATIEN 7 7 PHYSICIAN T VISIT S GROUP 15 MINUTES INITIAL 22222 [facility] PREVENTIV 7 7 PHYSICIAN E S GROUP MEDICINE NEW PT AGE 18-[address] [facility] LENA - 7 7 [facility] OUTPATIEN INC T OFFICE 36286 [facility] OUT[facility]IEN 7 7 [facility] T VISIT 5 INC MINUTES OFFICE 88513 [facility] OUT[facility]IEN 7 7 [facility] T VISIT 5 INC MINUTES HOSPITAL LENA - 7 7 [facility] OUTPATIEN INC T OFFICE 93005 [facility] ROGERSINGER OUTPATIEN 6 6 CAT T VISIT COMMUNITY 15 HEALTH C MINUTES OFFICE 86922 J[facility] AVILAMERMAN OUTPATIEN 6 6 N AND T VISIT COMMUNITY 15 HEALTH C MINUTES EMERGENCY 84467 UNIVERSIT 6 6 Y [facility] T VISIT MODERATE SEVERITY HOSPITAL [facility] 16499 JIM YOUNGBLOODMORE OUTPATIEN 6 6 STA T VISIT COMMUNITY 15 HEALTH C MINUTES EMERGENCY 37898 [facility] BAB DEPT 6 6 JOCELYNN VISIT EMERGENCY HIGH PHYS SEVERITY& THREAT FUN OFFICE 69839 [facility] T VISIT HLTH DEPT HLTH DEPT 10 DANI DANI MINUTES OFFICE 52844 [place] OUTPATIEN 4 4 CO [facility]ALTH CO HEALTH T NEW 20 MINUTES DEPARTMEN DEPARTMEN T T HOSPITAL [facility] 86971 [facility] ALL 4 4 JOCELYNN DEPARTMEN EMERGENCY T VISIT PHYS HIGH/URGE NT SEVERITY EMERGENCY 22000 UNIVERSIT 4 4 Y [facility] T VISIT MODERATE SEVERITY EMERGENCY 47509 [facility] DAY 4 4 JOCELYNN OMERO DEPARTMEN EMERGENCY T VISIT PHYS MODERATE SEVERITY EMERGENCY 45710 [facility] DEPT 4 4 JOCELYNN VISIT EMERGENCY HIGH PHYS SEVERITY& THREAT FUN OFFICE 20266 [facility] OUTPATIEN 4 4 PHYSICIAN T NEW 20 S GROUP MINUTES EMERGENCY 50528 [facility] 4 4 PAT PAT DEPARTMEN T VISIT HIGH/URGE NT SEVERITY EMERGENCY 57062 [facility] 4 4 [facility] DEPARTMEN T VISIT HIGH/URGE NT SEVERITY Emergency KARLEY Monae MD (ER) 3 22:36 3 02:08 [facility] Emergency KARLEY Monae MD (ER) 3 04:56 3 05:00 [facility] Emergency KARLEY HERNANDEZ MD (ER) 3 11:34 3 12:33 [facility]
--- OUTSIDE RECORDS SUMMARY | 2017-04-15 20:42 | External Medical Summary Rpt | CCD ---
Author Author , RIGO Organization [facility] Address Unknown Phone Care Team Providers Care Insight Leader Name Role Phone ALFARIS MOH, ALFARIS Unavailable Unavailable MOH ALFARIS MOH, ALFARIS Unavailable Unavailable MOH BEINEKE D, BEINEKE D Unavailable Unavailable BEINEKE D, BEINEKE D Unavailable Unavailable [facility] Unavailable Unavailable [facility]ORATORIES, [facility] Unavailable Unavailable [facility]IES, [facility] Unavailable Unavailable [facility], [facility] Unavailable Unavailable DEPARTMENT, [facility] DEPART[facility] Unavailable Unavailable DEPARTMENT, [facility] CRECELIUS, CRECELIUS Unavailable Unavailable LENKA HERNANDEZ MD, Unavailable Unavailable SHAY CAVAZOS MD Unavailable Unavailable [facility]ARROBI [facility] Unavailable Unavailable [facility] Un[facility] Un[facility] INC, [facility] RAMACHANDRAN, RAMACHANDRAN Unavailable Unavailable [facility], Unavailable Unavailable [facility] DENTON, DENTON Unavailable Unavailable [facility] & Unavailable [facility], [facility] & [facility] Unavailable Unavailable MEDICAL G, [facility] SANABRIA, SANABRIA Unavailable Unavailable ESTHER, ESTHER Unavailable Unavailable Yvette Monae MD, Unavailable Unavailable Yvette Monae MD CRISTÓBAL CAT, Unavailable Unavailable [facility] Unavailable Unavailable INC., [facility] [place] Unavailable Unavailable [facility], Unavailable Unavailable [facility] ANGEL WAQAR SHORT & KIRK P [facility], Unavailable Unavailable [facility] Unavailable Unavailable DEPT [facility], [facility] DEPT [facility] Unavailable Unavailable DEPT [facility], [facility] DEPT DANI WELLS SHA, WELLS SHA Unavailable Unavailable SHAJI AND, Unavailable Unavailable SHAJI AND Purpose Continuity of Care Document - 02-02-2012 through 2016 Problems Code Diagnosis DOS Provider Status R112 NAUSEA WITH 02-10-2017 [facility] UNSPECIFIED MEDICAL G B182 CHRONIC 02-08-2017 [facility] VIRAL GASTROENTER HEPATITIS C OLOGY R1011 RIGHT UPPER 02-08-2017 [facility] PAIN OLOGY R1033 PERIUMBILIC 02-08-2017 [facility] AL PAIN GASTROENTER OLOGY Z111 ENCOUNTER 01-27-2017 [facility] CLINIC SCREENING [place] FOR [place] [facility] RESPIRATORY TUBERCULOSI S E669 OBESITY 01-21-2017 [facility]PECIFIED [facility] R109 UNSPECIFIED 01-21-2017 [facility] ABDOMINAL [place] PAIN [facility] Z6829 BODY MASS 01-21-2017 [facility] INDEX BMI [place] 29.0-29.9 [facility]ULT [facility] E663 OVERWEIGHT 01-15-2017 [facility] B1920 UNS VIRAL 12-24-2016 AN[facility] HEPATITIS C WAQAR WITHOUT SHORT & HEPATIC KIRK P COMA R195 OTHER FECAL 12-24-2016 AN[facility] WAQAR ABNORMALITI SHORT & ES KIRK P Z880 ALLERGY 12-24-2016 [facility] STATUS TO HOSPITAL & P[facility]IC[facility]IN [facility] Z885 ALLERGY 12-24-2016 [facility] STATUS [facility] HOSPITAL & NARCOTIC [facility] AGENT STATUS B9689 OTH SPEC 11-27-2016 [facility] BACTERIAL PHYSICIANS AGNT CAUSE GROUP DZ CLASSIFIED ELSW N760 ACUTE 11-27-2016 [facility] U33374 ENCOUNTER 11-10-2016 [facility] CT MRI TECHNOLOGIST EXAM PHYSICIANS GENERAL RTN GROUP W/ABNORMAL FIND W12470 ENCOUNTER 11-10-[address] MRI TECHNOLOGIST EXAM RE[facility] GENERAL RTN LABORATORIE W/O S ABNORMAL FIND Z113 ENCOUNTER 11-10-2016 [facility] SCREEN PHYSICIANS INFECTIONS GROUP SEXL MODE TRANSMISSN U61123 ENCOUNTER 11-10-2016 [facility] INITIAL PHYSICIANS PRESCRIPTIO GROUP N CONTRACEPTI VE UNS B9341MD ALLERGY 11-02-2016 [facility] INITIAL [...] J309 ALLERGIC 05-27-2016 [facility] UNSPECIFIED I59255 CELLULITIS 04-22-2016 [facility] RIGHT [facility] LOWER LIMB HEALTH C R75810X INSECT BITE 04-22-2016 [facility] THIGH HEALTH C INITIAL ENCNTR N27723 CUTANEOUS 04-18-2016 [facility] ABSCESS OF [facility] RIGHT LOWER HEALTH C LIMB Z6832 BODY MASS 04-15-2016 [facility] INDEX BMI COMMUNITY 32.0-32.9 HEALTH C ADULT K922 GASTROINTES 04-02-2016 [facility] TINAL N EMERGENCY HEMORRHAGE PHYS UNSPECIFIED H5213 MYOPIA 12-26-2015 [facility] ANG BILATERAL B20968 ENCOUNTER 12-24-2015 [facility] PRESCRIPTIO [facility] DEPT N DANI CONTRACEPT PILLS 70767 CONDYLOMA 05-30-2014 [place] [facility] 75275 UNSPECIFIED 05-30-2014 [place] [facility] VULVOVAGINI TIS 57904 ASTHMA, 03-23-2014 [facility] , UNSPECIFIED STATUS 6824 CELLULITIS& 03-23-2014 [facility] HAND EXCEPT FINGERS&ZA MB 4660 ACUTE 02-01-2014 [facility] BRONCH[facility]IS N EMERGENCY PHYS 5990 URINARY 02-01-2014 [facility] TRACT N EMERGENCY INFECTION PHYS SITE NOT SPECIFIED 48107 WHEEZING 02-01-2014 [facility] N EMERGENCY PHYS 7862 COUGH 02-01-2014 BEINEKE D 76927 UNSPECIFIED 12-16-2013 [facility] PAT GENITAL HERPES 81157 HERPETIC 12-16-2013 [facility] PAT VULVOVAGINI TIS 6235 LEUKORRHEA 12-16-2013 [facility] PAT NOT SPECIFIED INFECTIVE 3671 MYOPIA 11-09-2013 SCILAKESHA STEVENSON 5589 OTH&UNSPEC 09-14-2013 [facility] NONINFECTIO US GASTROENTER ITIS&COLITI S 43158 ABDOMINAL 09-14-2013 [facility] PAIN RIGHT LOWER QUADRANT 305.1 305.1 02-04-2013 [facility] TOBACCO USE [facility] DISORDER Hospital 599.0 599.0 URIN 02-04-2013 [place] TRACT [facility] INFECTION Hospital NOS 850.0 850.0 02-04-2013 [facility] CONCUSSION [facility] W/O COMA Hospital 866.00 866.00 02-04-2013 [place] KIDNEY [facility] INJURY [facility] NOS-CLOSED 920 920 02-04-2013 [facility] CONTUSION [facility] FACE/SCALP/ Hospital NCK E819.0 E819.0 02-04-2013 [place] 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 [facility] 493.90 493.90 02-03-2013 [place] ASTHMA, [facility] UNSPECIFIED Hospital 847.0 847.0 02-03-2013 [place] SPRAIN OF [facility] NECK [facility] 847.2 847.2 02-03-2013 [place] SPRAIN [facility] LUMBAR Hospital REGION E815.0 E815.0 MV 02-03-2013 [place] BEAU W 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 [place] TIME W/[place] [address] [address]US [address] REAL SHORT & TIME KIRK P W/IMAGE LIMITED INJECTION J2405 [address] ONDANSETR & ST & ST ON HCL [facility] PER 1 MG COLLECTIO 26965 [facility] VENOUS [address] [place] [address] BLO[address] & [address] & ST VENIPUNCT [place]IC[place] [place] URE THERAPEUT 25302 [facility] IC [address] [place] [address] [address] & [address] & ST IV PUSH [facility] EACH NEW DRUG HEPATIC [address] PANEL & ST & ST [facility] INJECTION J1885 [address] KETOROLAC & ST & ST [place]IC[place] DELIC[facility] TROMETHAM INE PER 15 MG BASIC 97112 [facility] METABOLIC [address] [place] [address] PAN[address] & ST CALCIUM [facility] [address] [facility] LIPASE [address] [place] [address] & [address] [facility] [place] [place] [address] ANGEL SANABRIA ABDOMEN & WAQAR PELVIS SHORT & W/O KIRK P CONTRAST MATERIAL THER 12034 [facility] PROPH/DX [address] [place] [address] [address] & [address] & ST PUSH [facility] SINGLE/1S T SBST/DRUG URNLS DIP [address] STICK/TAB & ST & ST LET RGNT DELICIA'S DELICIA'S AUTO W/O MICROSCOP Y SMR PRIM 87964 [facility] SRC WET 7 PHYS[place]IAN [place] GROUP NFCT AGT SMR PRIM 24768 [facility] SRC WET 7 PHYSICIAN PHYSICIAN [place] S GROUP S GROUP NFCT AGT IADNA 50876 BIO BIO CHLAMYDIA 7 REFERNCE REFERNCE LABORATOR LABORATOR TRACHOMAT IES IES IS AMPLIFIED PROBE TQ IADNA 96666 BIO BIO GARDNEREL 7 REFERNCE REFERNCE LA LABORATOR LABORATOR VAGINALIS IES IES QUANTIFIC ATION IADNA 40018 [facility] HERPES 7 PHYSICIAN SIMPLX S GROUP VIRUS DIRECT PROBE TQ URINLS 10742 [facility] DIP 7 PHYSICIAN STICK/TAB S GROUP LET REAGNT NON-AUTO MICRSCPY URINE 11826 [facility] TEST S GROUP VISUAL COLOR CMPRSN METHS IADNA 21275 [facility] NEISSERIA 7 REFERNCE REFERNCE LABORATOR LABORATOR GONORRHOE IES IES AE AMPLIFIED PROBE TQ CULTURE 13544 [facility] PHYSICIAN ANY S GROUP SOURCE IADNA 43496 BIO BIO PRISCILA 7 REFERNCE REFERNCE SPECIES LABORATOR LABORATOR AMPLIFIED IES IES PROBE TQ CYTP C/V 85334 BIO B[facility] AUTO THIN 7 REFERNCE REFERNCE LYR LABORATOR LABORATOR PREPJ SCR IES IES MNL RESCR PHYS IADNA 58804 [facility]IO HERPES 7 REFERNCE REFERNCE SOMPLX LABORATOR LABORATOR VIRUS IES IES AMPLIFIED PROBE TQ IADNA 32688 [facility] NEISSERIA 7 PHYSICIAN S GROUP GONORRHOE AE DIRECT PROBE TQ IADNA NOS 12418 BIO BIO 7 REFERNCE REFERNCE AMPLIFIED LABORATOR LABORATOR PROBE TQ IES IES EACH ORGANISM IADNA 70803 BIO BIO TRICHOMON 7 REFERNCE REFERNCE LABORATOR LABORATOR VAGINALIS IES IES AMPLIFIED PROBE TECH IADNA NOS 45262 BIO BIO 7 REFERNCE REFERNCE QUANTIFIC LABORATOR LABORATOR ATION IES IES EACH ORGANISM IAADIADOO 58154 [facility] 7 PHYSICIAN TRICHOMON S GROUP VAGINALIS UNCLASSIF J3490 [facility] PAR[facility]ES IED DRUGS 7 [facility] INC INC THERAPEUT 20767 [facility] PAREDES IC 7 [facility] PROPHYLAC INC INC TIC/DX INJECTION SUBQ/IM THERAPEUT 78692 [facility] PAREDES IC 7 [facility] PROPHYLAC INC INC TIC/DX INJECTION SUBQ/IM URNLS DIP 56930 [facility] PAREDES 7 [facility] STICK/TAB INC INC LET RGNT AUTO W/O MICROSCOP Y UNCLASSIF J3490 [facility] PAREDES IED DRUGS 7 [facility] INC INC VIRUS 28847 [facility] PAREDES TISS CUL 7 [facility]OS[facility] INOCULATI INC INC ON CYTOPATHI C EFFECT IADNA 36748 [facility] HEPATITIS 6 DIAGNOSTI DIAGNOSTI C QUANT CS CS & REVERSE TRANSCRIP TION HEPATITIS 97003 [facility] C 6 DIAGNOSTI DIAGNOSTI ANTIBODY CS CS IADNA 76668 [facility] NEISSERIA 6 DIAGNOSTI DIAGNOSTI CS CS GONORRHOE AE AMPLIFIED PROBE TQ IADNA 75522 [facility] CHLAMYDIA 6 DIAGNOSTI DIAGNOSTI CS CS TRACHOMAT IS AMPLIFIED PROBE TQ CULTURE 56043 [facility] BACTERIAL 6 DIAGNOSTI DIAGNOSTI CS CS QUANTTATI VE COLONY COUNT URINE CULTURE 50881 [facility] BCT 6 DIAGNOSTI DIAGNOSTI ISOL&PRSM CS CS PTV ID ISOLATE EA URINE OPHTH 68894 SCIFRES SCIFRES MEDICAL 6 ANG ANG XM&EVAL COMPRHNSV ESTAB PT 1/> CONTRACEP A4269 [facility] SUPPLY [facility] DEPT [facility] DEPT SPERMICID DANI DANI E EACH CONTRACEP A4267 [facility]IVE [facility] SUPPLY [facility] DEPT [facility] DEPT CONDOM DANI DANI MALE EACH URINE 83160 [facility] TEST [facility] DEPT [facility] DEPT VISUAL DANI DANI COLOR CMPRSN METHS CONTRACEP S4993 [facility] PILLS FOR [facility] DEPT [facility] DEPT DANI DANI CONTROL URINE 50825 [place] 4 [facility] TEST VISUAL DEPARTMEN DEPARTMEN COLOR T T CMPRSN METHS IADNA 63659 [place] CHLAMYDIA 4 [facility] TRACHOMAT [facility] IS T T AMPLIFIED PROBE TQ WET Q0111 [place] JUNE 4 [facility] INCL PREP VAGINAL [facility] CERV/SKIN T T SPECIMENS IADNA 81505 [place] NEISSERIA 4 [facility] GONORRHOE [facility] AE T T AMPLIFIED PROBE TQ INJECTION J3370 [facility] 4 Y Y VANCOMYCI [facility] N [place] [address] [place] [address] [facility] INFUSION 4 Y Y THERAPY/P [facility] ROPHYLAXI S /DX 1ST TO 1 HR INCISION 33609 [facility] & 4 JOCELYNN OMERO DRAINAGE EMERGENCY ABSCESS PHYS SIMPLE/SI NGLE RADIOLOGI 54896 BEINEKE D BEINEKE D C EXAM 4 CHEST 2 VIEWS FRONTAL&L ATERAL FRAMES V2020 SCIF[facility] SCIFRES PURCHASES 4 ANG ANG 1 VISN V2103 SC[facility] SCIFRES PLANO 4 ANG ANG TO+/-4.00 D SPHER 0.12-2.00 D CYL EA SCRATCH V2760 SCIFRES SCIFRES RESISTANT 4 ANG ANG COATING PER LENS LENS V2784 [facility] SCIFRES POLYCARBO 4 ANG ANG ROCHELLE OR EQUAL ANY INDEX PER LENS FITTING 87150 [facility] SC[facility]RES SPECTACLE 4 ANG ANG S XCPT APHAKIA MONOFOCAL OPHTH 58390 SC[facility] SCIFRES MEDICAL 4 ANG ANG XM&EVAL COMPRHNSV ESTAB PT 1/> Encounters Encounter Start End Date Code Location Performer Type Date OFFICE 15039 [facility] 7 7 GASTROENT ION EROLOGY NEW/ESTAB PATIENT 60 MIN OFFICE 73376 T B T B OUTPATIEN 7 7 CLINIC CLINIC T VISIT 5 [place] MINUTES CO [facility] CO [facility] OFFICE 73567 T B T B OUTPATIEN 7 7 CLINIC CLINIC T NEW 10 [place] MINUTES CO [facility] CO [facility] OFFICE 21266 [facility] 7 7 [place] T VISIT COMM[facility]ITY [facility] [place] [address] 7 [facility] 39058 [facility] OUT[facility] 7 7 [place] T VISIT COMMUNITY 10 HEALT MINUTES EMERGENCY 93847 [facility] DEPT 7 7 JOCELYNN VISIT EMERGENCY HIGH SERV SEVERITY& THREAT FUNCJ EMERGENCY 91679 [facility] BRO 7 7 EMERGENCY DEPARTMEN MEDICINE T VISIT HIGH/URGE NT SEVERITY EMERGENCY 76806 [facility] 7 [address] DEPARTMEN & [facility] T VISIT [facility] HIGH/URGE NT SEVERITY HOSPITAL WORSHIP - 7 [address] OUTPATIEN & [address] T [facility] EMERGENCY 78209 [facility] DEPT 7 7 JOCELYNN VISIT EMERGENCY HIGH PHYS SEVERITY& THREAT FUNCJ OFFICE 36768 [facility] OUTPATIEN 7 7 PHYSICIAN T VISIT S GROUP 15 MINUTES INITIAL 55840 [facility] PREVENTIV 7 7 PHYSICIAN E S GROUP MEDICINE NEW PT AGE 18-[address]YRS [facility] LENA - 7 7 [facility] OUTPATIEN INC T OFFICE 31451 [facility] OUT[facility]IEN 7 7 [facility] T VISIT 5 INC MINUTES OFFICE 82458 [facility] OUT[facility]IEN 7 7 [facility] T VISIT 5 INC MINUTES HOSPITAL LENA - 7 7 [facility] OUTPATIEN INC T OFFICE 44365 [facility] ROGERSINGER OUTPATIEN 6 6 CAT T VISIT COMMUNITY 15 HEALTH C MINUTES OFFICE 38095 J[facility] AVILAMERMAN OUTPATIEN 6 6 N AND T VISIT COMMUNITY 15 HEALTH C MINUTES EMERGENCY 30727 [facility] 6 6 Y [facility] T VISIT MODERATE SEVERITY HOSPITAL [facility] - 6 [facility] 08496 JIM YOUNGBLOODMORE OUTPATIEN 6 6 STA T VISIT COMMUNITY 15 HEALTH C MINUTES EMERGENCY 13944 [facility] BAB DEPT 6 6 JOCELYNN VISIT EMERGENCY HIGH PHYS SEVERITY& THREAT FUN OFFICE 66359 [facility] T VISIT HLTH DEPT HLTH DEPT 10 DANI DANI MINUTES OFFICE 79156 [facility] OUT[facility]IEN 4 4 CO HEALTH CO HEALTH T NEW 20 MINUTES DEPARTMEN DEPARTMEN T T HOSPITAL [facility] - 4 4 [facility] T EMERGENC[facility] 08985 [facility] ALL 4 4 JOCELYNN DEPARTMEN EMERGENCY T VISIT PHYS HIGH/URGE NT SEVERITY EMERGENCY 67367 [facility] 4 4 Y [facility] T VISIT MODERATE SEVERITY EMERGENCY 99132 [facility] DAY 4 4 JOCELYNN OMERO DEPARTMEN EMERGENCY T VISIT PHYS MODERATE SEVERITY EMERGENCY 04993 [facility] LES [facility] DEPT 4 4 JOCELYNN VISIT EMERGENCY HIGH PHYS SEVERITY& THREAT FUN OFFICE 33262 [facility] OUTPATIEN 4 4 PHYSICIAN T NEW 20 S GROUP MINUTES EMERGENCY 82692 [facility] SWINEY 4 4 PAT PAT DEPARTMEN T VISIT HIGH/URGE NT SEVERITY EMERGENCY 55846 [facility] 4 4 [facility] DEPARTMEN T VISIT HIGH/URGE NT SEVERITY Emergency KARLEY Monae MD (ER) 3 22:36 3 02:08 [facility] Emergency KARLEY Monae MD (ER) 3 04:56 3 05:00 [facility] Emergency KARLEY HERNANDEZ MD (ER) 3 11:34 3 12:33 [facility]
--- OUTSIDE RECORDS SUMMARY | 2017-04-15 20:43 | External Medical Summary Rpt | CCD ---
Author Author , RIGO Lovell RIGO Address Unknown Phone [email or web address] Care Team Providers Care Project Management Name Role Phone ALFARIS MOH, ALFARIS Unavailable Unavailable MOH ALFARIS MOH, ALFARIS Unavailable Unavailable MOH BEINEKE D, BEINEKE D Unavailable Unavailable BEINEKE D, BEINEKE D Unavailable Unavailable [facility] Unavailable Unavailable [facility]ATORIES, [facility] Unavailable Unavailable [facility]IES[facility] Unavailable [facility]available HEALTH C, [facility] Unavailable Unavailable DEPARTMENT, [facility] Unavailable Unavailable [facility]PARTMENT, [facility] CRECELIUS, CRECELIUS Unavailable Unavailable DAY OMERO, DAY Unavailable Unavailable OMERO HARPEL, HARPEL Unavailable Unavailable [facility] Unavailable Unavailable INC, [facility] RAMACHANDRAN, RAMACHANDRAN Unavailable Unavailable [facility], Unavailable Unavailable [facility] DENTON, DENTON Unavailable Unavailable [facility] & Unavailable [facility], [facility] & [facility] Unavailable Unavailable MEDICAL G, [facility] ESTHER, ESTHER Unavailable Unavailable [facility], Unavailable Unavailable [facility], Unavailable Unavailable [facility] T B [facility] Unavailable Unavailable [facility], [facility] ALIRIO TER, ALIRIO TER Unavailable Unavailable ANGEL WAQAR SHORT & Unavailable Unavailable KIRK P, ANGEL WAQAR SHORT & KIRK P [facility], Unavailable Unavailable [facility] Unavailable Unavailable DEPT [facility] DEPT [facility] Unavailable Unavailable DEPT [facility] DEPT [facility], [facility] Unavailable Unavailable KWABENA, KWABENA Unavailable Unavailable SHAJI AND, Unavailable Unavailable SHAJI [...] Z111 ENCOUNTER 01-27-2017 T B CLINIC SCREENING JUDSONIA FOR CO [facility] RESPIRATORY TUBERCULOSI S E669 OBESITY 01-21-2017 [facility] UNSPECIFIED [facility] R109 UNSPECIFIED 01-21-2017 [facility] ABDOMINAL [place] [facility]IN [facility] Z6829 BODY MASS 01-21-2017 [facility] INDEX BMI [place] 29.0-29.9 [facility] E663 OVERWEIGHT 01-15-2017 [facility] B1920 UNS VIRAL 12-24-2016 [facility] HEPATITIS C WAQAR WITHOUT SHORT & HEPATIC KIRK P COMA R195 OTHER FECAL 12-24-2016 [facility] WAQAR ABNORMALITI SHORT & ES KIRK P Z880 ALLERGY 12-24-2016 [facility] STAT[facility] & [facility] Z885 ALLERGY 12-24-2016 [facility] & N[facility]OT[facility] AGENT STATUS B9689 OTH SPEC 11-27-2016 [facility] BACTERIAL PHYSICIANS AGNT CAUSE GROUP DZ CLASSIFIED ELSW N760 ACUTE 11-27-2016 [facility] VAGINITIS PHYS[facility]IANS GROUP [id number] ENCOUNTER 11-10-2016 [facility] CONFERENCE PLANNER EXAM PHYSICIANS GENERAL RTN GROUP W/ABNORMAL FIND [id number] ENCOUNTER 11-10-2016 [facility] CONFERENCE PLANNER EXAM REFERNCE GENERAL RTN LABORATORIE W/O S ABNORMAL FIND Z113 ENCOUNTER 11-10-2016 [facility] SCREEN PHYSICIANS INFECTIONS GROUP SEXL MODE TRANSMISSN H28466 ENCOUNTER 11-10-2016 [facility] INITIAL PHYSICIANS PRESCRIPTIO GROUP N CONTRACEPTI VE UNS [id number] ALLERGY 11-02-2016 [facility] INITIAL [...] J309 ALLERGIC 05-27-2016 [facility] UNSPECIFIED K98662 CELLULITIS 04-22-2016 [facility] [id number] INSECT BITE 04-22-2016 [facility] THIGH [facility] C INITIAL ENCNTR C90999 CUTANEOUS 04-18-2016 [facility] ABSCESS OF COMMUNITY RIGHT LOWER HEALTH C LIMB Z6832 BODY MASS 04-15-2016 [facility] INDEX BMI COMMUNITY 32.0-32.9 HEALTH C ADULT K922 GASTROINTES 04-02-2016 [facility] TINAL N EMERGENCY HEMORRHAGE PHYS UNSPECIFIED H5213 MYOPIA 12-26-2015 [facility] ANG BILATERAL U63640 ENCOUNTER 12-24-2015 [facility] INITIAL DISTRICT PRESCRIPTIO [facility] DEPT N DANI CONTRACEPT PILLS 91711 CONDYLOMA 05-30-2014 [place] [facility] 22034 UNSPECIFIED 05-30-2014 [place] [facility] DEPART[facility] VULVOVAGINI TIS 00012 ASTHMA, 03-23-2014 [facility] , UNSPECIFIED STATUS 6824 CELLULITIS& 03-23-2014 [facility] HAND EXCEPT FINGERS&ZA MB 4660 ACUTE 02-01-2014 [facility] N EMERGENCY PHYS 5990 URINARY 02-01-2014 [facility] TRACT N EMERGENCY INFECTION PHYS SITE NOT SPECIFIED 09527 WHEEZING 02-01-2014 [facility] N EMERGENCY PHYS 7862 COUGH 02-01-2014 BEINEKE D 90039 UNSPECIFIED 12-16-2013 [facility] PAT GENITAL HERPES 33380 HERPETIC 12-16-2013 [facility] PAT VULVOVAGINI TIS 6235 LEUKORRHEA 12-16-2013 [facility] PAT NOT SPECIFIED INFECTIVE 3671 MYOPIA 11-09-2013 SCIF[facility] ANG 5589 OTH&UNSPEC 09-14-2013 [facility] MOH NONINFECTIO US GASTROENTER ITIS&COLITI S 68456 ABDOMINAL 09-14-2013 [facility] M[facility] PAIN RIGHT LOWER [...] EN RA 90 17 17 61 S UT 5 18 #3 DE 77 6 10 [...] OM 00 07 08 30 30 00 PA Ac EP 37 -0 -0 .0 00 LG ti RA 86 8- 4- 00 01 RE ve ZO 15 20 20 96 EN LE 09 17 17 14 S 7 70 #3 [address] 77 6 20 MG CA PS UL E Procedures Procedure DOS Code Location Performer Comment ANES 12871 [facility] RAMACHANDRAN UPPER GI 7 [facility] ENDOSCOPY MEDICAL PROXIMAL G TO DUODENUM SKIN TEST 67960 T B T B 7 CLINIC CLINIC TUBERCELLISO [place] [address] CISCO YUAN ABDOMINAL 7 C IMAGING REAL [facility]I[place] TIME W/[place] [address] ANGEL CRECELIUS ABDOMINAL 7 WAQAR REAL SHORT & TIME KIRK P W/IMAGE LIMITED INJECTION J18[address] KETOROLAC & ST & ST [facility] TROMETHAM INE PER 15 MG HEPATIC 15193 [facility] FUNCTION [address] [place] [address] PAN[address] & [facility] & [facility] DELIC[facility] THERAPEUT 63177 [facility] IC [address] [place] [address] INJE[address] & [address] & ST IV PUSH [facility] [address] [facility] LIPASE [address] [place] [address] & [address] & ST [facility] DELIC[facility] THER 78480 [facility] PROPH/DX [address] [place] [address] NJX IV & [address] & ST PUSH [facility]IC[facility]S DELICIA'S SINGLE/1S T SBST/DRUG BASIC 90667 [facility] METABOLIC [address] [place] [address] PAN[address] & [address] & [place] [address] [facility] ABDOMEN & [address] [place] [address] PEL[address] & [address] & ST W/O [facility] CONTRAST MATERIAL COLLECTIO 26343 [facility] N VENOUS [address] [place] [address] BLO[address] & [address] & ST VENIPUNCT [facility] URE INJECTION J24[address] ONDANSETR & ST & ST ON HCL [facility] DEL[facility] PER 1 MG URNLS DIP [address] STICK/TAB & ST & ST LET RGNT DELIC[facility] DEL[facility] AUTO W/O MICROSCOP Y SMR PRIM 02626 [facility] SRC WET 7 PHYSICIAN [place] GROUP NFCT AGT SMR PRIM 75144 [facility] SRC WET 7 PHYSICIAN PHYSICIAN [place]OUNT S GROUP S GROUP NFCT AGT IADNA 75720 BIO BIO CHLAMYDIA 7 REFERNCE REFERNCE LABORATOR LABORATOR TRACHOMAT IES IES IS AMPLIFIED PROBE TQ IADNA 00689 BIO BIO GARDNEREL 7 REFERNCE REFERNCE LA LABORATOR LABORATOR VAGINALIS IES IES QUANTIFIC ATION IADNA 59119 [facility] HERPES 7 PHYSICIAN SIMPLX S GROUP VIRUS DIRECT PROBE TQ URINLS 63962 [facility] DIP 7 PHYSICIAN STICK/TAB S GROUP LET REAGNT NON-AUTO MICRSCPY CULTURE 47799 [facility] CHLAMYDIA 7 PHYSICIAN ANY S GROUP SOURCE IADNA 01484 BIO BIO PRISCILA 7 REFERNCE REFERNCE SPECIES LABORATOR LABORATOR AMPLIFIED IES IES PROBE TQ CYTP C/V 92452 [facility]IO BIO AUTO THIN 7 REFERNCE REFERNCE LYR LABORATOR LABORATOR PREPJ SCR IES IES MNL RESCR PHYS IADNA 50208 BIO BIO TRICHOMON 7 REFERNCE REFERNCE LABORATOR LABORATOR VAGINALIS IES IES AMPLIFIED PROBE TECH IADNA NOS 34428 BIO BIO 7 REFERNCE REFERNCE QUANTIFIC LABORATOR LABORATOR ATION IES IES EACH ORGANISM IAADIADOO 01417 [facility] 7 PHYSICIAN TRICHOMON S GROUP VAGINALIS IADNA 63580 BIO BIO NEISSERIA 7 REFERNCE REFERNCE LABORATOR LABORATOR GONORRHOE IES IES AE AMPLIFIED PROBE TQ IADNA NOS 48800 BIO BIO 7 REFERNCE REFERNCE AMPLIFIED LABORATOR LABORATOR PROBE TQ IES IES EACH ORGANISM IADNA 28611 BIO BIO HERPES 7 REFERNCE REFERNCE SOMPLX LABORATOR LABORATOR VIRUS IES IES AMPLIFIED PROBE TQ IADNA 36810 [facility] NEISSERIA 7 PHYSICIAN S GROUP GONORRHOE AE DIRECT PROBE TQ URINE 50694 [facility] HARPE 7 PHYSICIAN TEST S GROUP VISUAL COLOR CMPRSN METHS THERAPEUT 45997 [facility] PAREDES IC 7 [facility] PROPHYLAC INC INC TIC/DX INJECTION SUBQ/IM UNCLASSIF J3490 [facility] IED DRUGS 7 [facility] INC INC UNCLASSIF J3490 [facility] IED DRUGS 7 [facility] INC INC THERAPEUT 01615 [facility] PAREDES IC 7 [facility] PROPHYLAC INC INC TIC/DX INJECTION SUBQ/IM VIRUS 00615 [facility] PAR[facility] TISS CUL 7 [facility] INOCULATI INC INC ON CYTOPATHI C EFFECT URNLS DIP 13454 [facility] PAREDES 7 [facility] STICK/TAB INC INC LET RGNT AUTO W/O MICROSCOP Y IADNA 96691 [facility] HEPATITIS 6 DIAGNOSTI DIAGNOSTI C QUANT CS CS & REVERSE TRANSCRIP TION HEPATITIS 30695 [facility] C 6 DIAGNOSTI DIAGNOSTI ANTIBODY CS CS IADNA 76968 [facility] CHLAMYDIA 6 DIAGNOSTI DIAGNOSTI CS CS TRACHOMAT IS AMPLIFIED PROBE TQ CULTURE 31850 [facility] BACTERIAL 6 DIAGNOSTI DIAGNOSTI CS CS QUANTTATI VE COLONY COUNT URINE CULTURE 75726 [facility] BCT 6 DIAGNOSTI DIAGNOSTI ISOL&PRSM CS CS PTV ID ISOLATE EA URINE IADNA 17546 [facility] NEISSERIA 6 DIAGNOSTI DIAGNOSTI CS CS GONORRHOE AE AMPLIFIED PROBE TQ OPHTH 46719 SC[facility] SCIFRES MEDICAL 6 ANG ANG XM&EVAL COMPRHNSV ESTAB PT 1/> CONTRACEP A4269 [facility] SUPPLY TH DEPT HL DEPT SPERMICID DANI DANI E EACH URINE 86041 [facility] TEST TH DEPT [facility] DEPT VISUAL DANI DANI COLOR CMPRSN METHS CONTRACEP S4993 [facility] TIVE [facility] DEPT [facility] DEPT DANI DANI CONTROL CONTRACEP A4267 [facility] TIVE 6 [facility] SUPPLY [facility] DEPT [facility] DEPT CONDOM DANI DANI MALE EACH IADNA 21681 [facility] CHLAMYDIA 4 [facility]AT [facility] T T AMPLIFIED PROBE TQ URINE 79052 [place] 4 [facility] TEST VISUAL [facility] COLOR T T CMPRSN METHS WET Q0111 [facility] JUNE 4 [facility] INCL PREP VAGINAL [facility] CERV/SKIN T T SPECIMENS IADNA 39174 [place] NEISSERIA 4 [facility] GONORRHOE [facility] AE T T AMPLIFIED PROBE TQ INJECTION J3370 [facility] 4 Y Y [facility] [place] [address] [place] [address] [facility] INFUSION 4 Y Y THERAPY/P [facility] ROPHYLAXI S /DX 1ST TO 1 HR INCISION 81544 [facility] & 4 JOCELYNN OMERO DRAINAGE EMERGENCY ABSCESS PHYS SIMPLE/SI NGLE RADIOLOGI 29210 BEINEKE D BEINEKE D C EXAM 4 CHEST 2 VIEWS FRONTAL&L ATERAL FRAMES V2020 SC[facility] SCIFRES PURCHASES 4 ANG ANG 1 VISN V2103 SC[facility] SCIFRES PLANO 4 ANG ANG TO+/-4.00 D SPHER 0.12-2.00 D CYL EA SCRATCH V2760 SCIFRES SCIFRES RESISTANT 4 ANG ANG COATING PER LENS LENS V2784 SCIF[facility] SCIFRES POLYCARBO 4 ANG ANG ROCHELLE OR EQUAL ANY INDEX PER LENS FITTING 27454 [facility] SCIFRES SPECTACLE 4 ANG ANG S XCPT APHAKIA MONOFOCAL OPHTH 32303 SCIFRES SCIFRES MEDICAL 4 ANG ANG XM&EVAL COMPRHNSV ESTAB PT 1/> Encounters Encounter Start End Date Code Location Performer Type Date [facility] 7 GASTROENT ION EROLOGY NEW/ESTAB PATIENT 60 MIN OFFICE 16702 T B T B OUTPATIEN 7 7 CLINIC [facility] T VISIT [facility] MINUTES CO [facility] CO [facility] OFFICE 77645 T B T B OUTPATIEN 7 7 CLINIC CLINIC T NEW [facility] MINUTES CO [facility] CO [facility] OFFICE 92067 TIESHA BAILEYOU OUTPATIEN 7 7 [place] T VISIT COMMUNITY [facility] - 7 7 [facility] 19879 [facility] OUTPATIEN 7 7 [place] T VISIT COMMUNITY [address] [facility] EMERGENCY 47266 [facility] 7 7 JOCELYNN VISIT EMERGENCY HIGH SERV SEVERITY& THREAT FUNCJ EMERGENCY 69807 MADELEINE BRO 7 7 EMERGENCY DEPARTMEN MEDICINE T VISIT HIGH/URGE NT SEVERITY [facility] - 7 [address] [facility] OUTPATIEN & [facility] EMERGENC[facility] 38573 [facility] DEPT 7 7 JOCELYNN VISIT EMERGENCY HIGH PHYS SEVERITY& THREAT FUNCJ EMERGENCY 30987 [facility] 7 [address] DEPARTMEN & [address] T VISIT DELICIA'S HIGH/URGE NT SEVERITY OFFICE 68151 [facility] OUTPATIEN 7 7 PHYSICIAN T VISIT S GROUP 15 MINUTES INITIAL 91492 [facility] PREVENTIV 7 7 PHYSICIAN E S GROUP MEDICINE NEW PT AGE 18-39YRS OFFICE 91120 [facility]RAVO 7 7 [facility] T VISIT 5 INC MINUTES HOSPITAL [facility]NA - 7 7 [facility] OUTPATIEN INC T OFFICE 63814 [facility] OUT[facility]IEN 7 7 [facility] T VISIT 5 INC MINUTES HOSPITAL LENA - 7 7 [facility] OUTPATIEN INC T OFFICE 48251 [facility] 6 6 CAT T VISIT COMMUNITY 15 HEALTH C MINUTES OFFICE 97300 [facility] OUTPATIEN 6 6 N AND T VISIT COMMUNITY 15 HEALTH C MINUTES HOSPITAL UNIVERSIT - 6 6 Y OUTPATIEN HOSPITAL T EMERGENCY 22482 [facility]OPK[facility] 6 6 MEDICAL DEPARTMEN SERV T VISIT FOUNDATIO MODERATE N SEVERITY OFFICE 43703 JIM YULIYA OUTPATIEN 6 6 STA T VISIT COMMUNITY 15 HEALTH C MINUTES EMERGENCY 64766 [facility] DEPT 6 6 JOCELYNN VISIT EMERGENCY HIGH PHYS SEVERITY& THREAT FUNCJ OFFICE 99626 [facility] T VISIT HLTH DEPT HLTH DEPT 10 DANI DANI MINUTES OFFICE 51326 RENATA YANEZ OUTPATIEN 4 4 [facility] T NEW 20 MINUTES DEPARTMEN DEPARTMEN T T [facility] UNIVERSIT - 4 4 Y [facility] T EMERGENCY 40627 [facility] ALL 4 4 JOCELYNN DEPARTMEN EMERGENCY T VISIT PHYS HIGH/URGE NT SEVERITY EMERGENCY 38892 UNIVERSIT 4 4 Y [facility]PITAL T VISIT MODERATE SEVERITY EMERGENCY 06859 [facility] 4 4 [facility] T VISIT PHYS MODERATE SEVERITY EMERGENCY 12405 [facility] 4 4 JOCELYNN VISIT EMERGENCY HIGH PHYS SEVERITY& THREAT FUNCJ OFFICE 74671 [facility] OUTPATIEN 4 4 PHYSICIAN T NEW 20 S GROUP MINUTES EMERGENCY 22874 [facility] 4 4 PAT PAT DEPARTMEN T VISIT HIGH/URGE NT SEVERITY EMERGENCY 37352 [facility] AL[facility]IS 4 4 [facility] DEPARTMEN T VISIT HIGH/URGE NT SEVERITY
--- OUTSIDE RECORDS SUMMARY | 2017-04-15 20:43 | External Medical Summary Rpt | CCD ---
Author Author , RIGO Lovell RIGO Address Unknown Phone [email or web address] Care Team Providers Care Production Lead Name Role Phone ALFARIS MOH, ALFARIS Unavailable Unavailable MOH ALFARIS MOH, ALFARIS Unavailable Unavailable MOH BEINEKE D, BEINEKE D Unavailable Unavailable BEINEKE D, BEINEKE D Unavailable Unavailable [facility] Unavailable Unavailable [facility]ATORIES, [facility] Unavailable Unavailable LAB[facility]ATORIES, [facility] Unavailable Unavailable HEALTH C, [facility] Unavailable Unavailable DEPARTMENT, [facility] Unavailable Unavailable DEPARTMENT, [facility] CRECELIUS, CRECELIUS Unavailable Unavailable DAY OMERO, DAY Unavailable Unavailable OMERO HARPEL, HARPEL Unavailable Unavailable [facility] Unavailable Unavailable INC, [facility] RAMACHANDRAN, RAMACHANDRAN Unavailable Unavailable [facility], Unavailable Unavailable [facility] DENTON, DENTON Unavailable Unavailable [facility] & Unavailable [facility], [facility] Unavailable Unavailable MEDICAL G, [facility] ESTHER, ESTHER Unavailable Unavailable [facility], Unavailable Unavailable [facility] Unavailable [facility], Unavailable Unavailable [...] CO TH, T [facility] [facility] T B [facility] Unavailable Unavailable CO [facility], [facility] ALIRIO TER, ALIRIO TER Unavailable Unavailable ANGEL WAQAR SHORT & Unavailable Unavailable KIRK P, ANGEL WAQAR SHORT & KIRK P [facility], Unavailable Unavailable [facility] Unavailable Unavailable DEPT [facility] DEPT [facility] Unavailable Unavailable DEPT [facility] DEPT [facility], [facility] Unavailable Unavailable KWABENA, [...] Z111 ENCOUNTER 01-27-2017 T B CLINIC SCREENING [place] FOR [facility] RESPIRATORY TUBERCULOSI S E669 OBESITY 01-21-2017 PARK [...] & ES KIRK P Z880 ALLERGY 12-24-2016 [facility] STATUS TO HOSPITAL & PENIC[facility]IN [facility] Z885 ALLERGY 12-24-2016 [facility] STATUS TO HOSP[facility] & NARCOTIC [facility] AGENT STATUS B9689 OTH SPEC 11-27-2016 [facility] BACTERIAL PHYSICIANS AGNT CAUSE GROUP DZ CLASSIFIED ELSW N760 ACUTE 11-27-2016 [facility] GROUP [id number] ENCOUNTER 11-10-2016 [facility] NEON MOLDER EXAM PHYSICIANS GENERAL RTN GROUP W/ABNORMAL FIND [id number] ENCOUNTER 11-10-2016 [facility] NEON MOLDER EXAM REFERNCE GENERAL RTN LABORATORIE W/O S ABNORMAL FIND Z113 ENCOUNTER 11-10-2016 [facility] SCREEN PHYSICIANS INFECTIONS GROUP SEXL MODE TRANSMISSN P06085 ENCOUNTER 11-10-2016 [facility] INITIAL PHYSICIANS PRESCRIPTIO GROUP N CONTRACEPTI VE UNS [id number] ALLERGY 11-02-2016 [facility] INITIAL [...] J309 ALLERGIC 05-27-2016 [facility] UNSPECIFIED [id number] CELLULITIS 04-22-2016 [facility] [id number] INSECT BITE 04-22-2016 [facility]ITY THIGH [facility] C INITIAL ENCNTR Z76781 CUTANEOUS 04-18-2016 [facility] ABSCESS OF COMMUNITY RIGHT LOWER HEALTH C LIMB Z6832 BODY MASS 04-15-2016 [facility] INDEX BMI COMMUNITY 32.0-32.9 HEALTH C ADULT K922 GASTROINTES 04-02-2016 [facility] TINAL N EMERGENCY HEMORRHAGE PHYS UNSPECIFIED H5213 MYOPIA 12-26-2015 SCIF[facility] ANG BILATERAL [id number] ENCOUNTER 12-24-2015 [facility] INITIAL DISTRICT PRESCRIPTIO [facility] DEPT N DANI CONTRACEPT PILLS 64360 CONDYLOMA 05-30-2014 [place] [facility] 59084 UNSPECIFIED 05-30-2014 [place] [facility] VULVOVAGINI TIS 24351 ASTHMA, 03-23-2014 [facility] , UNSPECIFIED STATUS 6824 CELLULITIS& 03-23-2014 [facility] HAND EXCEPT FINGERS&ZA MB 4660 ACUTE 02-01-2014 [facility] BRONCH[facility]IS N EMERGENCY PHYS 5990 URINARY 02-01-2014 [facility] TRACT N EMERGENCY INFECTION PHYS SITE NOT SPECIFIED 20000 WHEEZING 02-01-2014 [facility] N EMERGENCY PHYS 7862 COUGH 02-01-2014 BEINEKE D 39386 UNSPECIFIED 12-16-2013 [facility] PAT GENITAL HERPES 92402 HERPETIC 12-16-2013 [facility] PAT VULVOVAGINI TIS 6235 LEUKORRHEA 12-16-2013 [facility] PAT NOT SPECIFIED INFECTIVE 3671 MYOPIA 11-09-2013 SCIFRES ANG 5589 OTH&UNSPEC 09-14-2013 [facility] MOH NONINFECTIO US GASTROENTER ITIS&COLITI S 39455 ABDOMINAL 09-14-2013 AL[facility] MOH PAIN RIGHT LOWER [...] EN RA 90 17 17 61 S LA 5 18 #3 DE 77 6 10 [...] OM 00 07 08 30 30 00 NJ Ac EP 37 -0 -0 .0 00 LG ti RA 86 8- 4- 00 01 RE ve ZO 15 20 20 96 EN LE 09 17 17 14 S 7 70 #3 [address] 77 6 20 MG CA PS UL E Procedures Procedure DOS Code Location Performer Comment ANES 12110 [facility] RAMACHANDRAN UPPER GI 7 [facility] MEDICAL PROXIMAL G TO DUODENUM SKIN TEST 17463 T B T B 7 CLINIC CLINIC TUBERCELLISO [place] [address] CISCO YUAN ABDOMINAL 7 C IMAGING REAL ALLIANCE TIME W/[place] [address] ANGEL CRECELIUS ABDOMINAL 7 WAQAR REAL SHORT & TIME KIRK P W/IMAGE LIMITED INJECTION J18[address] KETOROLAC & ST & ST [facility] DELICIA[facility] TROMETHAM INE PER 15 MG HEPATIC 81554 [facility] FUNCTION [address] [place] [address] PAN[address] & [address] & ST [facility] DELICIA[facility]S THERAPEUT 96374 [facility] IC [address] [place] [address] IN[address] & [address] & ST IV PUSH [place]IC[place] [address] [facility] LIPASE [address] [place] [address] & ST [facility]IC[facility] DELICIA'S THER 92615 [facility] PROPH/DX [address] [place] [address] NJX [address] & [address] & ST PUSH DELICIA'S DELICIA'S SINGLE/1S T SBST/DRUG BASIC 76990 [facility] METABOLIC [address] [place] [address] [address] & [address] & [place] [address] [facility] ABDOMEN & [address] [place] [address] [address] & [address] & ST W/O [facility]IC[facility] CONTRAST MATERIAL COLLECTIO 33796 [facility] N VENOUS [address] [place] [address] [address] & [address] & ST VENIPUNCT DELIC[facility] DELIC[facility] URE INJECTION J24[address] ONDANSETR & ST & ST ON HCL DELICIA'S DELICIA'S PER 1 MG URNLS DIP [address] STICK/TAB & ST & ST LET RGNT DELICIA'S DELICIA'S AUTO W/O MICROSCOP Y SMR PRIM 49842 [facility] SRC WET 7 PHYS[place]IAN [place] NFCT AGT SMR PRIM 26945 [facility] SRC WET 7 PHYSICIAN PHYSICIAN [place]OUNT S GROUP S GROUP NFCT AGT IADNA 10373 B[facility] B[facility] CHLAMYDIA 7 REFERNCE REFERNCE LABORATOR LABORATOR TRACHOMAT IES IES IS AMPLIFIED PROBE TQ IADNA 47902 BIO BIO GARDNEREL 7 REFERNCE REFERNCE LA LABORATOR LABORATOR VAGINALIS IES IES QUANTIFIC ATION IADNA 16664 [facility] HERPES 7 PHYSICIAN SIMPLX S GROUP VIRUS DIRECT PROBE TQ URINLS 71469 [facility] DIP 7 PHYSICIAN STICK/TAB S GROUP LET REAGNT NON-AUTO MICRSCPY CULTURE 17275 [facility] CHLAMYDIA 7 PHYSICIAN ANY S GROUP SOURCE IADNA 03215 [facility] B[facility] PRISCILA 7 REFERNCE REFERNCE SPECIES LABORATOR LABORATOR AMPLIFIED IES IES PROBE TQ CYTP C/V 43639 [facility] B[facility] AUTO THIN 7 REFERNCE REFERNCE LYR LABORATOR LABORATOR PREPJ SCR IES IES MNL RESCR PHYS IADNA 36896 [facility] B[facility] TRICHOMON 7 REFERNCE REFERNCE LABORATOR LABORATOR VAGINALIS IES IES AMPLIFIED PROBE TECH IADNA NOS 76944 BIO BIO 7 REFERNCE REFERNCE QUANTIFIC LABORATOR LABORATOR ATION IES IES EACH ORGANISM IAADIADOO 41231 [facility] 7 PHYSICIAN TRICHOMON S GROUP VAGINALIS IADNA 19857 [facility] B[facility] NEISSERIA 7 REFERNCE REFERNCE LABORATOR LABORATOR GONORRHOE IES IES AE AMPLIFIED PROBE TQ IADNA NOS 73757 BIO BIO 7 REFERNCE REFERNCE AMPLIFIED LABORATOR LABORATOR PROBE TQ IES IES EACH ORGANISM IADNA 63246 B[facility]IO HERPES 7 REFERNCE REFERNCE SOMPLX LABORATOR LABORATOR VIRUS IES IES AMPLIFIED PROBE TQ IADNA 60624 [facility] NEISSERIA 7 PHYSICIAN S GROUP GONORRHOE AE DIRECT PROBE TQ URINE 06576 [facility] HARPE 7 PHYSICIAN TEST S GROUP VISUAL COLOR CMPRSN METHS THERAPEUT 17498 [facility] PAREDES IC 7 [facility] PROPHYLAC INC INC TIC/DX INJECTION SUBQ/IM UNCLASSIF J3490 [facility] PAREDES IED DRUGS 7 [facility] INC INC UNCLASSIF J3490 [facility] PAREDES IED DRUGS 7 [facility] INC INC THERAPEUT 79134 [facility] PAREDES IC 7 [facility] PROPHYLAC INC INC TIC/DX INJECTION SUBQ/IM VIRUS 09049 [facility] PAREDES TISS CUL 7 [facility] INOCULATI INC INC ON CYTOPATHI C EFFECT URNLS DIP 89831 [facility] PAREDES 7 [facility] STICK/TAB INC INC LET RGNT AUTO W/O MICROSCOP Y IADNA 75928 [facility] HEPAT[facility]IS 6 DIAGNOSTI DIAGNOSTI C QUANT CS CS & REVERSE TRANSCRIP TION HEPATITIS 11248 [facility] C 6 DIAGNOSTI DIAGNOSTI ANTIBODY CS CS IADNA 69926 [facility] CHLAMYDIA 6 DIAGNOSTI DIAGNOSTI CS CS TRACHOMAT IS AMPLIFIED PROBE TQ CULTURE 73590 [facility] BACTERIAL 6 DIAGNOSTI DIAGNOSTI CS CS QUANTTATI VE COLONY COUNT URINE CULTURE 58320 [facility] BCT 6 DIAGNOSTI DIAGNOSTI ISOL&PRSM CS CS PTV ID ISOLATE EA URINE IADNA 96617 [facility] NEISSERIA 6 DIAGNOSTI DIAGNOSTI CS CS GONORRHOE AE AMPLIFIED PROBE TQ OPHTH 69501 SC[facility] SCIFRES MEDICAL 6 ANG ANG XM&EVAL COMPRHNSV ESTAB PT 1/> CONTRACEP A4269 [facility] SUPPLY TH DEPT HL DEPT SPERMICID DANI DANI E EACH URINE 12664 [facility] TEST TH DEPT [facility] DEPT VISUAL DANI DANI COLOR CMPRSN METHS CONTRACEP S4993 [facility] TIVE [facility] DEPT DANI DANI CONTROL CONTRACEP A4267 [facility] TIVE 6 [facility] SUPPLY [facility] DEPT [facility] DEPT CONDOM DANI DANI MALE EACH IADNA 60854 [place] CHLAMYDIA 4 [facility] HEALTH TRACHOMAT DEPARTMEN [facility] IS T T AMPLIFIED PROBE TQ URINE 01618 [place] 4 [facility] HEALTH TEST VISUAL DEPARTMEN [facility] COLOR T T CMPRSN METHS WET Q0111 [place] JUNE 4 [facility] HEALTH INCL PREP VAGINAL DEPARTMEN [facility] CERV/SKIN T T SPECIMENS IADNA 44655 [place] NEISSERIA 4 [facility] GONORRHOE DEPARTMEN [facility]PARTMER[facility] AE T T AMPLIFIED PROBE TQ INJECTION J3370 [facility] 4 Y Y VANCOMYCI [facility] [place] [address] [place] [address] [facility] INFUSION 4 Y Y THERAPY/P [facility] ROPHYLAXI S /DX 1ST TO 1 HR INCISION 40122 [facility] & 4 JOCELYNN OMERO DRAINAGE EMERGENCY ABSCESS PHYS SIMPLE/SI NGLE RADIOLOGI 46213 BEINEKE D BEINEKE D C EXAM 4 CHEST 2 VIEWS FRONTAL&L ATERAL FRAMES V2020 SCIF[facility] SCIFRES PURCHASES 4 ANG ANG 1 VISN V2103 SCIFRES SCIFRES PLANO 4 ANG ANG TO+/-4.00 D SPHER 0.12-2.00 D CYL EA SCRATCH V2760 SCIFRES SCIFRES RESISTANT 4 ANG ANG COATING PER LENS LENS V2784 SCIFRES SCIFRES POLYCARBO 4 ANG ANG ROCHELLE OR EQUAL ANY INDEX PER LENS FITTING 52749 [facility] SCIFRES SPECTACLE 4 ANG ANG S XCPT APHAKIA MONOFOCAL OPHTH 33167 SCIFRES SCIFRES MEDICAL 4 ANG ANG XM&EVAL COMPRHNSV ESTAB PT 1/> Encounters Encounter Start End Date Code Location Performer Type Date OFFICE 52214 [facility] 7 7 GASTROENT ION EROLOGY NEW/ESTAB PATIENT 60 MIN OFFICE 83969 T B T B OUTPATIEN 7 7 CLINIC CLINIC T VISIT 5 [facility] MINUTES CO [facility] CO [facility] OFFICE 44105 T B T B OUTPATIEN 7 7 CLINIC CLINIC T NEW 10 [facility] MINUTES CO [facility] CO [facility] OFFICE 92530 TIESHA BAILEYOU OUTPATIEN 7 7 [place] T VISIT COMM[facility]ITY 10 [facility] - 7 7 [facility] 15463 [facility] OUT[facility] 7 7 [place] T VISIT [facility] EMERGENCY 82753 [facility] 7 7 JOCELYNN VISIT EMERGENCY HIGH SERV SEVERITY& THREAT [facility] EMERGENCY 59023 MADELEINE BRO 7 7 EMERGENCY DEPARTMEN MEDICINE T VISIT HIGH/URGE NT SEVERITY HOSPITAL [facility] - 7 [address] [facility] OUTPATIEN & [facility] EMERGENCY 02505 [facility] DEPT 7 7 JOCELYNN VISIT EMERGENCY HIGH PHYS SEVERITY& THREAT FUNCJ EMERGENCY 01583 [facility] 7 [address] DEPARTMEN & ST T VISIT DELICIA'S HIGH/URGE NT SEVERITY OFFICE 53078 [facility] OUTPATIEN 7 7 PHYSICIAN T VISIT S GROUP 15 MINUTES INITIAL 06457 [facility] PREVENTIV 7 7 PHYSICIAN E S GROUP MEDICINE NEW PT AGE 18-39YRS OFFICE 25357 [facility] BRAVO 7 7 [facility] T VISIT 5 INC MINUTES HOSPITAL [facility] - 7 7 [facility] OUTPATIEN INC T OFFICE 56147 [facility] OUTPATIEN 7 7 [facility] T VISIT 5 INC MINUTES HOSPITAL [facility] - 7 7 [facility] OUTPATIEN INC T OFFICE 00543 [facility] [place] [place] OUTPATIEN 6 6 CAT T VISIT COMMUNITY 15 HEALTH C MINUTES OFFICE 13364 [facility] [place] OUTPATIEN 6 6 N AND T VISIT COMMUNITY 15 HEALTH C MINUTES HOSPITAL UNIVERSIT - 6 6 Y OUTPATIEN HOSPITAL T EMERGENCY 95819 [facility] 6 6 MEDICAL DEPARTMEN SERV T VISIT FOUNDATIO MODERATE N SEVERITY OFFICE 86063 JIM YULIYA OUTPATIEN 6 6 STA T VISIT COMMUNITY 15 HEALTH C MINUTES EMERGENCY 00172 [facility] DEPT 6 6 JOCELYNN VISIT EMERGENCY HIGH PHYS SEVERITY& THREAT FUNCJ OFFICE 36837 [facility] OUT[facility] 6 6 [facility] T VISIT HLTH DEPT HLTH DEPT 10 DANI DANI MINUTES OFFICE 01771 [facility]EN[facility] YANEZ OUTPATIEN 4 4 [facility] T NEW 20 MINUTES DEPARTMEN DEPARTMEN T T [facility] UNIVERSIT - 4 4 Y [facility] T EMERGENCY 66670 [facility] ALL 4 4 JOCELYNN DEPARTMEN EMERGENCY T VISIT PHYS HIGH/URGE NT SEVERITY EMERGENCY 02859 [facility] 4 4 Y [facility] T VISIT MODERATE SEVERITY EMERGENCY 05801 [facility] 4 4 JOCELYNN [facility] EMERGENC[facility] T VISIT PHYS MODERATE SEVERITY EMERGENCY 55649 [facility] DEPT 4 4 JOCELYNN VISIT EMERGENCY HIGH PHYS SEVERITY& THREAT FUNCJ OFFICE 73617 [facility] OUTPATIEN 4 4 PHYSICIAN T NEW 20 S GROUP MINUTES EMERGENCY 08481 [facility] 4 4 PAT PAT DEPARTMEN T VISIT HIGH/URGE NT SEVERITY EMERGENCY 24754 AL[facility]IS ALFARIS 4 4 [facility] DEPARTMEN T VISIT HIGH/URGE NT SEVERITY
--- OUTSIDE RECORDS SUMMARY | 2017-04-15 20:44 | External Medical Summary Rpt | CCD ---
Author Author , RIGO SIERRA Address Unknown Phone [email or web address] Immunization Name Date Rout CVX Reac Dose Comm Prov Is Faci e tion ent ider Refu lity Give sed n Hep 01-2 8 999 Hist H149 No H149 B, 03-17 oric ped/ al adol Info rmat ion - Sour ce Unsp ecif ied MMR -2 3 999 Hist H149 No H149 03-17 oric 13 al Info rmat ion - Sour ce Unsp ecif ied MCV4 -2 147 999 Hist H149 No H149 UF 03-17 oric 13 al Info rmat ion - Sour ce Unsp ecif ied Tdap -2 115 999 Hist H149 No H149 , 03-17 oric Adso 13 al rbed Info rmat ion - Sour ce Unsp ecif ied
--- OUTSIDE RECORDS SUMMARY | 2017-04-15 20:44 | External Medical Summary Rpt | CCD ---
Author Author , RIGO SIERRA Address Unknown Phone [email or web address] Immunization Name Date Rout CVX Reac Dose [...]
--- OUTSIDE RECORDS SUMMARY | 2017-04-15 20:44 | External Medical Summary Rpt ---
[...] INVALID Neisser NEGATIV No No No NEGATIV Dec 3 ia E informa informa informa E 2014 [...] MAY HAVE ADVERSE PSYCHO- SOCIAL IMPACT, [facility] NG.\.br \This report contain [...] 30 TY NON-HIS informa informa informa informa 2013 PANIC tion in tion in tion in [...] No No No No Feb 01 OR DIRECTOR OF VITAL STATISTICS informa informa informa informa 2012 tion in [...] No No No No Feb 01 OR DIRECTOR OF VITAL STATISTICS informa informa informa informa 2012 tion in [...] \.br\Feb 01 ia informa informa informa is 2012 gonorrh [...]
--- OUTSIDE RECORDS SUMMARY | 2017-04-15 20:44 | External Medical Summary Rpt ---
[...] MAY HAVE ADVERSE PSYCHO- SOCIAL IMPACT, [facility] RET[facility] NG.\.br \This report contain [...] No No No No Feb 01 OR EMERGENCY PREPAREDNESS COORDINATOR informa informa informa informa 2012 tion in [...] No No No No Feb 01 OR EMERGENCY PREPAREDNESS COORDINATOR informa informa informa informa 2012 tion in [...]
--- NOTE | 2017-04-15 21:02 | Urgent Treatment Center Report ---
History of Present Issue Date/Time Seen by Provider 04/15/172057 Visit Reason Pt arrived:Walked Presenting Problem:PT STATES SHE HAS HAD NAUSEA FOR A MONTH AND HER LAST PERIOD WAS IN JANUARY. WOULD LIKE A TEST. Location if Accident: Onset of symptoms date/time:/ or onset unknown for:MEDICAL HX UNKNOWN Have you (or family members/close friends) recently traveled outside the [place]? N If Yes, where/when: Have you had exposure to infectious disease within the past month? TB? Other? Specify: Patient state that she has been having nausea on and off for over a month now State that she hasn't had a menstral period since January and she is worried that she may be so she came in [facility] requesting a test ALLERGIES Coded Allergies: Penicillins (10/25/16) morphine (10/25/16) Home Medications Reported Medications BUPRENORPHINE HCL/NALOXONE HCL (Suboxone 12 MG-3 MG Sl Film) 1 SL DAILY History Medical History General CAD? No Angina: No IN: No Hypertension? No Hyperlipidemia? No CHF? No DVT? No PE? No COPD? No Asthma? No Anemia? No GERD? No Gastric ulcers? No GI Bleed? No Hernia? No Thyroid Problems? No Hypothyroidism? No CVA? No Seizures? No Diabetes? No Renal Insuffiency? No UTI? No Stones? No BPH? No GB Disease: No Nephritic Syndrome? No Asplenia? No Hepatitis? No Sickle Cell Disease? No Arthritis? No Migraines? No Cataracts? No Glaucoma? No MRSA? No HIV? No TB? No Anxiety? No Depression? No Cancer? No More? 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 No: respiratory distress. Cardiovascular normal exam, regular rate/rhythm, no peripheral edema Neurologic alert, normal exam, oriented x 3 Comments After examination patient advised that she was recently exposed to Chlamydia and Gonorrhea State that her boyfriend was just recently treated and she did not want to be tested because he was positive so she just wanted to get treated Medical Decision Making LABS/Meds/Orders Pt receiving controlled substance in ED? No Results/Orders Laboratory Tests 04/15/172045: Urine Test NEGATIVE Current Medication Orders Sig/Leo Start time Last Medication Dose Route Stop Time Status Admin Lidocaine HCl 0 .STK-MED ONE 04/15 2120 DC .ROUTE Azithromycin 0 .STK-MED ONE 04/15 2119 DC PO Ceftriaxone Sodium 0 .STK-MED ONE 04/15 2119 DCr .ROUTE Azithromycin 1,000 MG ONCE ONE 04/15 2115 DC PO 04/15 2116 Ceftriaxone Sodium 250 MG ONCE ONE 04/15 2115 DCr IM 04/15 2116 Lidocaine HCl 0.9 ML ONCE ONE 04/15 2115 DC IM 04/15 2116 Orders Procedure Date/time Status [facility] URINE 04/15 2046 Complete Progress [facility] Progress Notes Comment Patient advised that she is allergic to Penicillin State that she has had Rocephin before and never had a reaction, patient informed of chance of cross sensitivity verbalized understanding Departure Departure Time of Disposition 2109 Disposition DC Home or Self Care(routine) Clinical Impression Primary Impression: Negative test Secondary Impressions: Exposure to STD Condition STABLE Referrals NO REFERRAL (Family) Patient Instructions Absent Periods, Menstrual Problems, General (Alternative Therapy) Additional Instructions Follow up with OBGYN for examination due to missed periods No sexual activitiy for 7 days due to recent exposure and treatment for exposure to STD Follow up with family doctor Return if needed Discharge Counseling Counseled pt/family regarding diagnosis, test results, medications/RX, home care, follow up needs at 2122
--- NOTE | 2017-04-15 21:02 | Urgent Treatment Center Report ---
History of Present Issue Date/Time Seen by Provider 04/15/172057 Visit Reason Pt arrived:Walked Presenting Problem:PT STATES SHE HAS HAD NAUSEA FOR A MONTH AND HER LAST PERIOD WAS IN JANUARY. WOULD LIKE A TEST. Location if Accident: Onset of symptoms date/time:/ or onset unknown for:MEDICAL HX UNKNOWN Have you (or family members/close friends) recently traveled outside the [place]? N If Yes, where/when: Have you had exposure to infectious disease within the past month? TB? Other? Specify: Patient state that she has been having nausea on and off for over a month now State that she hasn't had a menstral period since January and she is worried that she may be so she came in [facility] requesting a test ALLERGIES Coded Allergies: Penicillins (10/25/16) morphine (10/25/16) Home Medications Reported Medications BUPRENORPHINE HCL/NALOXONE HCL (Suboxone 12 MG-3 MG Sl Film) 1 SL DAILY History Medical History General CAD? No Angina: No DC: No Hypertension? No Hyperlipidemia? No CHF? No DVT? No PE? No COPD? No Asthma? No Anemia? No GERD? No Gastric ulcers? No GI Bleed? No Hernia? No Thyroid Problems? No Hypothyroidism? No CVA? No Seizures? No Diabetes? No Renal Insuffiency? No UTI? No Stones? No BPH? No GB Disease: No Nephritic Syndrome? No Asplenia? No Hepatitis? No Sickle Cell Disease? No Arthritis? No Migraines? No Cataracts? No Glaucoma? No MRSA? No HIV? No TB? No Anxiety? No Depression? No Cancer? No More? 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 No: respiratory distress. Cardiovascular normal exam, regular rate/rhythm, no peripheral edema Neurologic alert, normal exam, oriented x 3 Comments After examination patient advised that she was recently exposed to Chlamydia and Gonorrhea State that her boyfriend was just recently treated and she did not want to be tested because he was positive so she just wanted to get treated Medical Decision Making LABS/Meds/Orders Pt receiving controlled substance in ED? No Results/Orders Laboratory Tests 04/15/172045: Urine Test NEGATIVE Current Medication Orders Sig/Leo Start time Last Medication Dose Route Stop Time Status Admin Lidocaine HCl 0 .STK-MED ONE 04/15 2120 DC .ROUTE Azithromycin 0 .STK-MED ONE 04/15 2119 DC PO Ceftriaxone Sodium 0 .STK-MED ONE 04/15 2119 DCr .ROUTE Azithromycin 1,000 MG ONCE ONE 04/15 2115 DC PO 04/15 2116 Ceftriaxone Sodium 250 MG ONCE ONE 04/15 2115 DCr IM 04/15 2116 Lidocaine HCl 0.9 ML ONCE ONE 04/15 2115 DC IM 04/15 2116 Orders Procedure Date/time Status [facility] URINE 04/15 2046 Complete Progress [facility] Progress Notes Comment Patient advised that she is allergic to Penicillin State that she has had Rocephin before and never had a reaction, patient informed of chance of cross sensitivity verbalized understanding Departure Departure Time of Disposition 2109 Disposition DC Home or Self Care(routine) Clinical Impression Primary Impression: Negative test Secondary Impressions: Exposure to STD Condition STABLE Referrals NO REFERRAL (Family) Patient Instructions Absent Periods, Menstrual Problems, General (Alternative Therapy) Additional Instructions Follow up with OBGYN for examination due to missed periods No sexual activitiy for 7 days due to recent exposure and treatment for exposure to STD Follow up with family doctor Return if needed Discharge Counseling Counseled pt/family regarding diagnosis, test results, medications/RX, home care, follow up needs at 2122
[2017-04-15 21:31] VITALS: BP 119/84
== END 2017-04-15 21:32 | disposition home or self-care (01) ==
LOC: UTC 20:34
DX: Z32.02 Encounter for pregnancy test, result negative (principal); Z20.2 Contact with and (suspected) exposure to infections with a predominantly sexual mode of transmission

== ENCOUNTER 2017-05-28 17:23 | Emergency (ER) | payer MEDICAID ==
[~2017-05-28] VITALS: Ht 165.1 cm; Wt 67.6 kg
[2017-05-28 17:48] VITALS: BP 121/77
--- OUTSIDE RECORDS SUMMARY | 2017-05-28 17:55 | External Medical Summary Rpt | CCD ---
Author Author , RIGO Organization RIGO Address Unknown Phone [email or web address] Care Team Providers Care Chief Crew Scheduler Name Role Phone ALFARIS MOH, ALFARIS Unavailable Unavailable MOH BEINEKE D, BEINEKE D Unavailable Unavailable [facility] Unavailable Unavailable LABORATORIES, [facility] Unavailable Unavailable HEALTH C, [facility] C [facility] Unavailable Unavailable DEPARTMENT, [facility] LENKA HERNANDEZ MD, Unavailable Unavailable [facility] Unavailable Unavailable INC, [facility] FUNMILAYO MELLO Unavailable Unavailable [facility], Unavailable Unavailable [facility] Unavailable Unavailable MEDICAL G, [facility] Yvette Monae MD, Unavailable Unavailable Yvette Monae MD [facility] Unavailable Unavailable [facility], [facility], Unavailable Unavailable [facility] SC[facility] ANG, SCIFRES Unavailable Unavailable [facility], [facility] Unavailable Unavailable [facility] , [facility] SWINE[facility] PAT, SWINEY Unavailable Unavailable PAT T B [facility] Unavailable Unavailable [facility], [facility] ANGEL WAQAR SHORT & Unavailable Unavailable KIRK P, ANGEL WAQAR SHORT & KIRK P [facility], Unavailable Unavailable [facility] Unavailable [facility], [facility] HOS [facility] Unavailable Unavailable DEPT DANI, [facility] Purpose Continuity of Care Document - 02-02-2012 through 2016 Problems Code Diagnosis DOS Provider Status H5213 MYOPIA 04-20-2017 FUNMILAYO BILATERAL Z202 CONTACT 04-15-2017 [facility] EXPOSURE INC INFECT SEXUAL MODE TRANSMS Z3202 ENCOUNTER 04-15-2017 [facility] TEST RESULT NEGATIVE A5901 TRICHOMONAL 03-25-2017 [facility] VULVOVAGINI GROUP TIS N760 ACUTE 03-25-2017 [facility] GROUP R112 NAUSEA WITH 02-10-2017 [place] [facility] UNSPECIFIED MEDICAL G B182 CHRONIC 02-08-2017 [facility] VIRAL GASTROENTER HEPATITIS C OLOGY R1011 RIGHT UPPER 02-08-2017 [facility] QUADRANT GASTROENTER PAIN OLOGY R1033 PERIUMBILIC 02-08-2017 [facility] AL PAIN GASTROENTER OLOGY Z111 ENCOUNTER 01-27-2017 T [facility]INIC SCREENING [place] FOR [facility] RESPIRATORY TUBERCULOSI S E669 OBESITY 01-21-2017 [place] UNSPECIFIED [facility] [facility] R109 UNSPECIFIED 01-21-2017 [place] ABDOMINAL [place] PAIN [facility] Z6829 BODY MASS 01-21-2017 [place] INDEX BMI [place] 29.0-29.9 COMMUNITY ADULT HEALT E663 OVERWEIGHT 01-15-2017 [place] [facility] M545 LOW BACK 12-30-2016 [facility] PAIN OF [place] [facility] Z880 ALLERGY 12-30-2016 [facility] STATUS TO OF PENICILLIN [place] [facility] Z885 ALLERGY 12-30-2016 [facility] STATUS TO OF NARCOTIC [place] AGENT HOS STATUS B1920 UNS VIRAL 12-24-2016 [facility] HEPATITIS C WAQAR WITHOUT SHORT & HEPATIC KIRK P COMA R195 OTHER FECAL 12-24-2016 [facility] WAQAR ABNORMALITI SHORT & ES KIRK P B9689 OTH SPEC 11-27-2016 [facility] BACTERIAL PHYSICIANS AGNT CAUSE GROUP DZ CLASSIFIED ELSW E25022 ENCOUNTER 11-10-2016 [facility] LAND TITLE EXAMINER EXAM PHYSICIANS GENERAL RTN GROUP W/ABNORMAL FIND A79665 ENCOUNTER 11-10-2016 [facility] LAND TITLE EXAMINER EXAM REFERNCE GENERAL RTN LABORATORIE W/O S ABNORMAL FIND Z113 ENCOUNTER 11-10-2016 [facility] SCREEN PHYSICIANS INFECTIONS GROUP SEXL MODE TRANSMISSN Q84222 ENCOUNTER 11-10-2016 [facility] INITIAL PHYSICIANS PRESCRIPTIO GROUP N CONTRACEPTI VE UNS A64 UNSPECIFIED 10-25-2016 [facility]ALLY [facility] TRANSMITTED INC DISEASE N390 URINARY 10-25-2016 [facility] TRACT [facility] INFECTION INC SITE NOT SPECIFIED J309 ALLERGIC 05-27-2016 [facility] UNSPECIFIED F71356 CELLULITIS 04-22-2016 [facility] RIGHT COMMUNITY LOWER LIMB HEALTH C [id number] INSECT BITE 04-22-2016 [facility] RIGHT COMMUNITY THIGH HEALTH C INITIAL ENCNTR O54826 CUTANEOUS 04-18-2016 [facility] ABSCESS OF COMMUNITY RIGHT LOWER HEALTH C LIMB Z6832 BODY MASS 04-15-2016 [facility] INDEX BMI COMMUNITY 32.0-32.9 HEALTH C ADULT K922 GASTROINTES 04-02-2016 [facility] TINAL N EMERGENCY HEMORRHAGE PHYS UNSPECIFIED U33172 ENCOUNTER 12-24-2015 [facility] INITIAL DISTRICT PRESCRIPTIO [facility] DEPT N DANI CONTRACEPT PILLS 09866 CONDYLOMA 05-30-2014 [place] [facility] 96752 UNSPECIFIED 05-30-2014 [place] [facility] DEPART[facility] VULVOVAGINI TIS 42607 ASTHMA, 03-23-2014 [facility] , UNSPECIFIED STATUS 6824 CELLULITIS& 03-23-2014 [facility] HAND EXCEPT FINGERS&ZA MB 4660 ACUTE 02-01-2014 [facility] BRONCHITIS N EMERGENCY PHYS 5990 URINARY 02-01-2014 [facility] TRACT N EMERGENCY INFECTION PHYS SITE NOT SPECIFIED 45580 WHEEZING 02-01-2014 [facility] N EMERGENCY PHYS 7862 COUGH 02-01-2014 BEINEKE D 30564 UNSPECIFIED 12-16-2013 [facility] PAT GENITAL HERPES 09670 HERPETIC 12-16-2013 [facility] PAT VULVOVAGINI TIS 6235 LEUKORRHEA 12-16-2013 [facility] PAT NOT SPECIFIED INFECTIVE 3671 MYOPIA 11-09-2013 SC[facility] ANG 5589 OTH&UNSPEC 09-14-2013 [facility] NONINFECTIO US GASTROENTER ITIS&COLITI S 16379 ABDOMINAL 09-14-2013 [facility] PAIN RIGHT LOWER QUADRANT 305.1 305.1 02-04-2013 [facility] TOBACCO USE [facility] DISORDER Hospital 599.0 599.0 URIN 02-04-2013 [place] TRACT [facility] INFECTION Hospital NOS 850.0 850.0 02-04-2013 [facility] CONCUSSION [facility] W/O COMA Hospital 866.00 866.00 02-04-2013 [facility] KIDNEY [facility] INJURY Hospital NOS-CLOSED 920 920 02-04-2013 [facility] CONTUSION [facility] FACE/SCALP/ Hospital NCK E819.0 E819.0 02-04-2013 [facility] TRAFFIC ACC [facility] NOS-COMMERCIAL CRABBER Hospital 493.90 493.90 02-03-2013 [place] ASTHMA, [facility] UNSPECIFIED Hospital 847.0 847.0 02-03-2013 [facility] SPRAIN OF [facility] NECK [facility] 847.2 847.2 02-03-2013 [facility]ian [facility] Hospital REGION E815.0 E815.0 MV 02-03-2013 Cristhian YANEZ W [facility] E849.5 E849.5 02-03-2013 Cristhian FUENTES ON [facility] WAY V14.0 V14.0 02-03-2013 Cristhian HX-PENICILL [facility] IN ALLERGY Hospital 466.0 466.0 ACUTE 10-04-2012 Cristhian BRONCHITIS [facility] B19.20 UNSPECIFIED VIRAL HEPATITIS C WITHOUT HEPATIC COMA F17.200 NICOTINE DEPENDENCE, UNSPECIFIED , UNCOMPLICAT ED J20.9 ACUTE BRONCHITIS, UNSPECIFIED K29.50 UNSPECIFIED CHRONIC GASTRITIS WITHOUT BLEEDING K29.80 DUODENITIS WITHOUT BLEEDING K44.9 DIAPHRAGMAT IC HERNIA WITHOUT OBSTRUCTION OR GANGRE N39.0 URINARY TRACT INFECTION, SITE NOT SPECIFIED R10.11 RIGHT UPPER QUADRANT PAIN R10.9 UNSPECIFIED ABDOMINAL PAIN R11.2 NAUSEA WITH VOMITING, UNSPECIFIED 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 HOP GROWER (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) USE OF NON-STEROID AL NON-INFLA Z79.899 OTHER HOP GROWER (CURRENT) DRUG THERAPY Z87.898 PERSONAL HISTORY OF OTHER SPECIFIED CONDITIONS Z88.0 ALLERGY STATUS TO PENICILLIN Z88.5 ALLERGY STATUS TO NARCOTIC AGENT STATUS Z98.890 OTHER SPECIFIED POSTPROCEDU RAL STATES Allergies, Adverse Reactions, Alerts Type Drug Allergy [...] ia de te s n re d ME 29 09 10 42 14 00 CL Ac TR 30 -2 -2 .0 00 IN ti ON 00 8- 7- 00 00 IC ve ID 22 20 20 44 AZ 60 17 17 40 PH OL 1 96 AR E MA 25 CY 0 MG TA BL ET B 43 07 08 30 30 00 [...] Order Detail nces retati t Range on Urine test by rapid immunoassa (04-15-2017 20:46) Urine 10-19-2 NEGATIV NEG complet pregnan 017 E ed cy test 20:46 NEGATIV by E L rapid immunoa ssa Urine test by rapid immunoassa (04-15-2017 20:46) Urine 10-19-2 NEGATIV NEG complet pregnan 017 E ed cy test 20:46 by rapid immunoa ssa CHLAMYDIA AND GONORRHEA TESTING (05-30-2014 14:50) Chlamyd [...] Cnc 23:25 Amylase SerPl-cCnc (02-03-2013 23:25) Amylase 19 U/L 25-115 complet 013 ed SerPl-c 23:25 Cnc LIPASE (02-03-2013 23:25) LIPASE 54 U/L 73-393 complet 013 ed 23:25 CBC with AUTO DIFF (02-03-2013 23:25) WBC # 02-03- 17.5 4.5-13. complet Bld 013 K/MM3 0 ed Auto 23:25 RBC # 09-2 5.42 4.2-5.4 complet Bld 013 M/mm3 ed Auto 23:25 Hgb 08-09-2 15.4 12.2-16 complet Bld-mCn 013 g/dL .2 ed c 23:25 Hct Fr 08-09-2 47.5 % 37.0-47 complet Bld 013 .0 [...] 08:30) COLLECT D. 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 Emergency KARLEY Monae MD (ER) 3 22:36 3 02:08 [facility] Emergency KARLEY Monae MD (ER) 3 04:56 3 05:00 [facility] Emergency KARLEY HERNANDEZ MD (ER) 3 11:34 3 12:33 [facility]
--- OUTSIDE RECORDS SUMMARY | 2017-05-28 17:55 | External Medical Summary Rpt | CCD ---
Author Author , RIGO Organization RIGO Address Unknown Phone [email or web address] Care Team Providers Care Type Disk Quality Control Supervisor Name Role Phone ALFARIS MOH, ALFARIS Unavailable Unavailable MOH BEINEKE D, BEINEKE D Unavailable Unavailable [facility] Unavailable Unavailable LABORATORIES, [facility] Unavailable Unavailable HEALTH C, [facility] C [facility] Unavailable Unavailable DEPARTMENT, [facility] DEPART[facility] LENKA HERNANDEZ MD, Unavailable Unavailable [facility] Unavailable Unavailable INC, [facility] FUNMILAYO MELLO Unavailable Unavailable [facility], Unavailable Unavailable [facility] Unavailable Unavailable MEDICAL G, [facility] G Yvette Monae MD, Unavailable Unavailable Yvette Monae MD [facility] Unavailable Unavailable [facility], [facility], Unavailable Unavailable [facility] SC[facility] ANG, SCIFRES Unavailable Unavailable [facility] Unavailable Unavailable [facility], [facility] Unavailable [facility]available [facility] , [facility] SWINE[facility] PAT, SWINEY Unavailable Unavailable PAT T B [facility] Un[facility] WAQ[facility] SHORT & Unavailable Unavailable KIRK P, ANGEL WAQAR SHORT & KIRK P [facility], Unavailable Unavailable [facility] Unavailable [facility] HOS [facility] Unavailable Unavailable DEPT DANI, [facility] DE[facility]ANI Purpose Continuity of Care Document - 02-02-2012 through 2016 Problems Code Diagnosis DOS Provider Status H5213 MYOPIA 04-20-2017 FUNMILAYO BILATERAL Z202 CONTACT 04-15-2017 [facility] EXPOSURE INC INFECT SEXUAL MODE TRANSMS Z3202 ENCOUNTER 04-15-2017 [facility] INC TEST RESULT NEGATIVE A5901 TRICHOMONAL 03-25-2017 [facility] VULVOVAGINI GROUP TIS N760 ACUTE 03-25-2017 [facility] GROUP R112 NAUSEA WITH 02-10-2017 [facility] UNSPECIFIED MEDICAL G B182 CHRONIC 02-08-2017 [facility] V[facility]AL [facility] HEPATITIS C OLOGY R1011 RIGHT UPPER 02-08-2017 [facility] PAIN OLOGY R1033 PERIUMBILIC 02-08-2017 [facility] AL PAIN GASTROENTER OLOGY Z111 ENCOUNTER 01-27-2017 T B CLINIC SCREENING [place] FOR CO HLTH RESPIRATORY TUBERCULOSI S E669 OBESITY 01-21-2017 [place] UNSPECIFIED [facility] [facility] R109 UNSPECIFIED 01-21-2017 [place] ABDOMINAL [place] PAIN [facility] Z6829 BODY MASS 01-21-2017 [place] INDEX BMI [place] 29.0-29.9 COMMUNITY ADULT HEALT E663 OVERWEIGHT 01-15-2017 [place] [facility] M545 LOW BACK 12-30-2016 [facility] PAIN [facility] [place] [facility] Z880 ALLERGY 12-30-2016 [facility] STATUS TO OF PENICILLIN [place] [facility] Z885 ALLERGY 12-30-2016 [facility] STATUS TO OF NARCOTIC [place] AGENT HOS STATUS B1920 UNS VIRAL 12-24-2016 [facility] HEPATITIS C WAQAR WITHOUT SHORT & HEPATIC KIRK P COMA R195 OTHER FECAL 12-24-2016 [facility] WAQAR ABNORMALITI SHORT & ES KIRK P B9689 OTH SPEC 11-27-2016 [facility] BACTERIAL PHYSICIANS AGNT CAUSE GROUP DZ CLASSIFIED ELSW V02515 ENCOUNTER 11-10-2016 [facility] FNPS EXAM PHYSICIANS GENERAL RTN GROUP W/ABNORMAL FIND Z38336 ENCOUNTER 11-10-2016 [facility] FNPS EXAM REFERNCE GENERAL RTN LABORATORIE W/O S ABNORMAL FIND Z113 ENCOUNTER 11-10-2016 [facility] SCREEN PHYSICIANS INFECTIONS GROUP SEXL MODE TRANSMISSN Q59878 ENCOUNTER 11-10-2016 [facility] INITIAL PHYSICIANS PRESCRIPTIO GROUP N CONTRACEPTI VE UNS A64 UNSPECIFIED 10-25-2016 [facility] TRANSMITTED INC DISEASE N390 URINARY 10-25-2016 [facility]CT [facility] INFECTION INC SITE NOT SPECIFIED J309 ALLERGIC 05-27-2016 [facility] UNSPECIFIED J22942 CELLULITIS 04-22-2016 [facility] C Z34995C INSECT BITE 04-22-2016 [facility] RIGHT COMMUNITY THIGH HEALTH C INITIAL ENCNTR J88793 CUTANEOUS 04-18-2016 [facility] ABSCESS OF COMMUNITY RIGHT LOWER HEALTH C LIMB Z6832 BODY MASS 04-15-2016 [facility] INDEX BMI COMMUNITY 32.0-32.9 HEALTH C ADULT K922 GASTROINTES 04-02-2016 [facility] TINAL N EMERGENCY HEMORRHAGE PHYS UNSPECIFIED N64066 ENCOUNTER 12-24-2015 [facility] PRESCRIPTIO [facility] DEPT N DANI CONTRACEPT PILLS 46658 CONDYLOMA 05-30-2014 [facility] 93460 UNSPECIFIED 05-30-2014 [place] [facility] VULVOVAGINI TIS 69174 ASTHMA, 03-23-2014 [facility] , UNSPECIFIED STATUS 6824 CELLULITIS& 03-23-2014 [facility] HAND EXCEPT FINGERS&ZA MB 4660 ACUTE 02-01-2014 [facility] BRONCHITIS N EMERGENCY PHYS 5990 URINARY 02-01-2014 [facility] TRACT N EMERGENCY INFECTION PHYS SITE NOT SPECIFIED 81763 WHEEZING 02-01-2014 [facility] N EMERGENCY PHYS 7862 COUGH 02-01-2014 BEINEKE D 41090 UNSPECIFIED 12-16-2013 [facility] PAT GENITAL HERPES 89431 HERPETIC 12-16-2013 [facility] PAT VULVOVAGINI TIS 6235 LEUKORRHEA 12-16-2013 [facility] PAT NOT SPECIFIED INFECTIVE 3671 MYOPIA 11-09-2013 SC[facility] ANG 5589 OTH&UNSPEC 09-14-2013 [facility] NONINFECTIO US GASTROENTER ITIS&COLITI S 86914 ABDOMINAL 09-14-2013 [facility] PAIN RIGHT LOWER QUADRANT 305.1 305.1 02-04-2013 [place] TOBACCO USE [facility] DISORDER Hospital 599.0 599.0 URIN 02-04-2013 [place] TRACT [facility] INFECTION Hospital NOS 850.0 850.0 02-04-2013 [place] CONCUSSION [facility] W/O COMA Hospital 866.00 866.00 02-04-2013 [place] KIDNEY [facility] INJURY Hospital NOS-CLOSED 920 920 02-04-2013 Crist[place] CONTUSION [facility] FACE/SCALP/ Hospital NCK E819.0 E819.0 02-04-2013 Cristh[place] TRAFFIC ACC [facility] NOS-MARKET SUPERINTENDENT Hospital 493.90 493.90 02-03-2013 [place] ASTHMA, [facility] UNSPECIFIED Hospital 847.0 847.0 02-03-2013 [place] SPRAIN OF [facility] NECK [facility] 847.2 847.2 02-03-2013 [facility] Hospital REGION E815.0 E815.0 MV 02-03-2013 [place] YANEZ W [facility] E849.5 E849.5 02-03-2013 Cristh[place] FUENTES ON [facility] WAY V14.0 V14.0 02-03-2013 Cristh[place] HX-PENICILL [facility] IN ALLERGY Hospital 466.0 466.0 ACUTE 10-04-2012 Crist[place] BRONCHITIS [facility] B19.20 UNSPECIFIED VIRAL HEPATITIS C WITHOUT HEPATIC COMA F17.200 NICOTINE DEPENDENCE, UNSPECIFIED , UNCOMPLICAT ED J20.9 ACUTE BRONCHITIS, UNSPECIFIED K29.50 UNSPECIFIED CHRONIC GASTRITIS WITHOUT BLEEDING K29.80 DUODENITIS WITHOUT BLEEDING K44.9 DIAPHRAGMAT IC HERNIA WITHOUT OBSTRUCTION OR GANGRE N39.0 URINARY TRACT INFECTION, SITE NOT SPECIFIED R10.11 RIGHT UPPER QUADRANT PAIN R10.9 UNSPECIFIED ABDOMINAL PAIN R11.2 NAUSEA WITH VOMITING, UNSPECIFIED 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 ETHNICI WHITE, complet TY 012 [...] End Date Code Location Performer Type Date [facility] [place] [address] [facility] [place] [address] [facility] 7 7 Y [facility] [place] [address] [facility] [place] [address] 7 [facility] UNIVERSIT - 6 6 Y [facility] UNIV[facility] - 4 4 Y [facility] Emergency KARLEY Monae MD (ER) 3 22:36 3 02:08 [facility] Emergency KARLEY Monae MD (ER) 3 04:56 3 05:00 [facility] Emergency KARLEY HERNANDEZ MD (ER) 3 11:34 3 12:33 [facility]
--- OUTSIDE RECORDS SUMMARY | 2017-05-28 17:57 | External Medical Summary Rpt | CCD ---
Author Author , RIGO SIERRA Address Unknown Phone [email or web address] Care Team Providers Care Pollution Control Technician Name Role Phone ALFARIS MOH, ALFARIS Unavailable Unavailable MOH BESIN D, BESIN D Unavailable Unavailable [facility] Unavailable Unavailable LABORATORIES, [facility] Unavailable Unavailable HEALTH C, [facility] Unavailable Unavailable DEPARTMENT, [facility] DEPART[facility] Unavailable Unavailable INC, [facility] FUNMILAYO MELLO Unavailable Unavailable [facility], Unavailable Unavailable [facility] Unavailable Unavailable MEDICAL G, [facility] MEDICAL G [facility] Unavailable Unavailable [facility], [facility], Unavailable Unavailable [facility] SCIFRES ANG, SCIFRES Unavailable Unavailable [facility] Unavailable Unavailable [facility] , [facility] SWINEY PAT, SWINEY Unavailable Unavailable PAT T [facility] Unavailable Unavailable [facility], [facility] ANGEL WAQAR SHORT & Unavailable Unavailable KIRK P, ANGEL ZAVALETA SHORT & KIRK P [facility], Unavailable [facility]available [facility] Unavailable [facility] Unavailable Unavailable DEPT DANI, [facility] Purpose Continuity of Care Document - 09-14-2013 through 2016 Problems Code Diagnosis DOS Provider Status [id number] MYOPIA 04-20-2017 FUNMILAYO BILATERAL Z202 CONTACT 04-15-2017 [facility] INFECT SEXUAL MODE TRANSMS Z3202 ENCOUNTER 04-15-2017 [facility] TEST RESULT NEGATIVE A5901 TRICHOMONAL 03-25-2017 [facility] VULVOVAGINI GROUP TIS N760 ACUTE 03-25-2017 [facility] R112 NAUSEA WITH 02-10-2017 [facility] UNSPECIFIED MEDICAL G B182 CHRONIC 02-08-2017 [facility] V[facility]AL [facility] HEPATITIS C OLOGY R1011 RIGHT UPPER 02-08-2017 [facility] PAIN OLOGY R1033 PERIUMBILIC 02-08-2017 [facility] AL PAIN GASTROENTER OLOGY Z111 ENCOUNTER 01-27-2017 [facility] RESPIRATORY TUBERCULOSI S E669 OBESITY 01-21-2017 [facility]NSPECIFIED [facility] R109 UNSPECIFIED 01-21-2017 [facility] ABDOMINAL [place] [facility]IN [facility] Z6829 BODY MASS 01-21-2017 [facility] INDEX BMI [place] 29.0-29.9 COMMUNITY ADULT HEALT E663 OVERWEIGHT 01-15-2017 [facility] M545 LOW BACK 12-30-2016 [facility] [place] [facility] Z880 ALLERGY 12-30-2016 [facility] STATUS TO [facility] [place] [facility] Z885 ALLERGY 12-30-2016 [facility] STATUS TO OF [place] [facility]ENT [facility] STATUS B1920 UNS VIRAL 12-24-2016 [facility] HEPATITIS C WAQAR WITHOUT SHORT & HEPATIC KIRK P COMA R195 OTHER FECAL 12-24-2016 [facility] WAQAR ABNORMALITI SHORT & ES KIRK P B9689 OTH SPEC 11-27-2016 [facility] BACTERIAL PHYS[facility]IANS AGNT CAUSE GROUP DZ CLASSIFIED ELSW T16296 ENCOUNTER 11-10-2016 [facility] CHIEF ARCHITECT EXAM PHYSICIANS GENERAL RTN GROUP W/ABNORMAL FIND J90769 ENCOUNTER 11-10-2016 [facility] CHIEF ARCHITECT EXAM REFERNCE GENERAL RTN LABORATORIE W/O S ABNORMAL FIND Z113 ENCOUNTER 11-10-2016 [facility] SCREEN PHYSICIANS INFECTIONS GROUP SEXL MODE TRANSMISSN H06333 ENCOUNTER 11-10-2016 [facility] INITIAL PHYSICIANS PRESCRIPTIO GROUP N CONTRACEPTI VE UNS A64 UNSPECIFIED 10-25-2016 [facility] TRANSMITTED INC DISEASE N390 URINARY 10-25-2016 [facility] INFECTION INC SITE NOT SPECIFIED J309 ALLERGIC 05-27-2016 [facility] UNSPECIFIED W31593 CELLULITIS 04-22-2016 [facility] C [id number] INSECT BITE 04-22-2016 [facility] THIGH HEALTH C INITIAL ENCNTR W58358 CUTANEOUS 04-18-2016 [facility] ABSCESS OF COMMUNITY RIGHT LOWER HEALTH C LIMB Z6832 BODY MASS 04-15-2016 [facility] INDEX BMI COMMUNITY 32.0-32.9 HEALTH C ADULT K922 GASTROINTES 04-02-2016 [facility] N EMERGENCY HEMORRHAGE PHYS UNSPECIFIED S48591 ENCOUNTER 12-24-2015 [facility] PRESCRIPTIO [facility] DEPT N DANI CONTRACEPT PILLS 01125 CONDYLOMA 05-30-2014 [facility] 92516 UNSPECIFIED 05-30-2014 [facility] VULVOVAGINI TIS 44081 ASTHMA, 03-23-2014 [facility] , UNSPECIFIED STATUS 6824 CELLULITIS& 03-23-2014 [facility] HAND EXCEPT FINGERS&ZA MB 4660 ACUTE 02-01-2014 [facility] BRONCH[facility]IS N EMERGENCY PHYS 5990 URINARY 02-01-2014 [facility] TRACT N EMERGENCY INFECTION PHYS SITE NOT SPECIFIED 64077 WHEEZING 02-01-2014 [facility] N [facility] PH[facility] 7862 COUGH 02-01-2014 [facility] D 80717 UNSPECIFIED 12-16-2013 [facility] PAT GENITAL HERPES 87785 HERPETIC 12-16-2013 [facility] PAT VULVOVAGINI TIS 6235 LEUKORRHEA 12-16-2013 [facility] PAT NOT SPECIFIED INFECTIVE 3671 MYOPIA 11-09-2013 SCIFRJOSE DE JESUS ANG 5589 OTH&UNSPEC 09-14-2013 [facility] NONINFECTIO US GASTROENTER ITIS&COLITI S 01321 ABDOMINAL 09-14-2013 [facility] PAIN RIGHT LOWER QUADRANT Medications Na ND [...] -2 .0 00 IN ti ON 00 8 7 00 IC ve ID 22 20 20 [...] EN RA 90 17 17 61 S NH 5 18 #3 DE 77 6 10 [...] -0 .0 00 LG ti AL 13 8 4 01 RE ve FA 89 20 20 96 EN TE 20 17 17 14 S 1 1 69 #3 77 GM 6 TA BL ET OM 00 07 08 30 30 00 WA Ac EP 37 -0 -0 .0 00 LG ti RA 86 8 01 RE ve ZO 15 20 20 96 EN LE 09 17 17 14 S 7 70 #3 DR 77 6 20 MG CA PS UL E Encounters Encounter Start End Date Code Location Performer Type Date [facility] [place] [address] [facility] [address] [place] [address] [address] [address] [place] [address] [facility] [place] [address] [address] [facility] - [facility] Y [facility]
--- OUTSIDE RECORDS SUMMARY | 2017-05-28 17:57 | External Medical Summary Rpt | CCD ---
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 Name Role Phone ALFARIS MOH, ALFARIS Unavailable Unavailable MOH BESIN D, BESIN D Unavailable Unavailable [facility] Unavailable Unavailable LABORATORIES, [facility] Unavailable Unavailable HEALTH C, [facility] Unavailable Unavailable DEPARTMENT, [facility] DEPARTMENT [facility] Unavailable Unavailable INC, [facility] FUNMILAYO MELLO Unavailable [facility]available [facility], Unavailable Unavailable [facility]END[facility] Unavailable Unavailable MEDICAL G, PEND[facility]ICAL G [facility] Unavailable Unavailable [facility], [facility], Unavailable Unavailable [facility] SCIFRES ANG, SCIFRES Unavailable Unavailable [facility]available [facility]available [facility], [facility] Unavailable Unavailable [facility] , [facility] SWINEY PAT, SWINEY Unavailable Unavailable PAT T [facility] Unavailable Unavailable CO [facility], T B [facility] ANGEL WAQAR SHORT & Unavailable Unavailable KIRK P, ANGEL ZAVALETA SHORT & KIRK P [facility], [facility]available [facility]available [facility] Unavailable [facility], [facility] Unavailable Unavailable DEPT DANI, [facility] DEPT [facility]ANI Purpose Continuity of Care Document - 09-14-2013 through 2016 Problems Code Diagnosis DOS Provider Status H5213 MYOPIA 04-20-2017 FUNMILAYO BILATERAL Z202 CONTACT 04-15-2017 [facility] INC INFECT SEXUAL MODE TRANSMS Z3202 ENCOUNTER 04-15-2017 [facility] TEST RESULT NEGATIVE A5901 TRICHOMONAL 03-25-2017 [facility] PHYSICIANS VULVOVAGINI GROUP TIS N760 ACUTE 03-25-2017 [facility] GROUP R112 NAUSEA WITH 02-10-2017 [facility] UNSPECIFIED MEDICAL G B182 CHRONIC [...] M545 LOW BACK 12-30-2016 [facility] [place] [facility] Z880 ALLERGY 12-30-2016 [facility] STATUS TO OF [place] [facility] Z885 ALLERGY 12-30-2016 [facility] STATUS TO OF [place] AGENT HOS STATUS B1920 UNS VIRAL 12-24-2016 [facility] HEPATITIS C WAQAR WITHOUT SHORT & HEPATIC KIRK P COMA R195 OTHER FECAL 12-24-2016 ANGEL WAQAR ABNORMALITI SHORT & ES KIRK P B9689 OTH SPEC 11-27-2016 [facility] BACTERIAL PHYSICIANS AGNT CAUSE GROUP DZ CLASSIFIED ELSW L90303 ENCOUNTER 11-10-2016 [facility] STRIPPER AND TAPER EXAM PHYSICIANS GENERAL RTN GROUP W/ABNORMAL FIND C89603 ENCOUNTER 11-10-2016 [facility] STRIPPER AND TAPER EXAM REFERNCE GENERAL RTN LABORATORIE W/O S ABNORMAL FIND Z113 ENCOUNTER 11-10-2016 [facility] SCREEN PHYSICIANS INFECTIONS GROUP SEXL MODE TRANSMISSN F19450 ENCOUNTER 11-10-2016 [facility] INITIAL PHYSICIANS PRESCRIPTIO GROUP N CONTRACEPTI VE UNS A64 UNSPECIFIED 10-25-2016 [facility] TRANSMITTED INC DISEASE N390 URINARY 10-25-2016 [facility] INFECTION INC SITE NOT SPECIFIED J309 ALLERGIC 05-27-2016 [facility] UNSPECIFIED I29294 CELLULITIS 04-22-2016 [facility] C A33701N INSECT BITE 04-22-2016 [facility] RIGHT COMMUNITY THIGH HEALTH C INITIAL ENCNTR Y19807 CUTANEOUS 04-18-2016 [facility] ABSCESS OF COMMUNITY RIGHT LOWER HEALTH C LIMB Z6832 BODY MASS 04-15-2016 [facility] INDEX BMI COMMUNITY 32.0-32.9 HEALTH C ADULT K922 GASTROINTES 04-02-2016 [facility] EMERGENCY HEMORRHAGE PHYS UNSPECIFIED W95362 ENCOUNTER 12-24-2015 [facility] PRESCRIPTIO [facility] DEPT N DANI CONTRACEPT PILLS 84137 CONDYLOMA 05-30-2014 [facility] 93033 UNSPECIFIED 05-30-2014 [facility] VULVOVAGINI TIS 12490 ASTHMA, 03-23-2014 [facility] , UNSPECIFIED STATUS 6824 CELLULITIS& 03-23-2014 [facility] HAND EXCEPT FINGERS&ZA MB 4660 ACUTE 02-01-2014 [facility] EMERGENCY PHYS 5990 URINARY 02-01-2014 [facility] TRACT N EMERGENCY INFECTION PHYS SITE NOT SPECIFIED 43936 WHEEZING 02-01-2014 [facility] N [facility] PHYS 7862 COUGH 02-01-2014 [facility] D 86975 UNSPECIFIED 12-16-2013 [facility] PAT GENITAL HERPES 61189 HERPETIC 12-16-2013 [facility] PAT VULVOVAGINI TIS 6235 LEUKORRHEA 12-16-2013 [facility] PAT NOT SPECIFIED INFECTIVE 3671 MYOPIA 11-09-2013 SCIFRJOSE DE JESUS ANG 5589 OTH&UNSPEC 09-14-2013 [facility] NONINFECTIO US GASTROENTER ITIS&COLITI S 66424 ABDOMINAL 09-14-2013 [facility] PAIN RIGHT LOWER QUADRANT Medications Na [...] EN RA 90 17 17 61 S MS 5 18 #3 DE 77 6 10 [...] End Date Code Location Performer Type Date [facility] [place] [address] [facility] [address] [place] [address] [facility] [address] [place] [address] [facility] [place] [address] [address] [facility] - [facility] Y [facility]
--- OUTSIDE RECORDS SUMMARY | 2017-05-28 17:57 | External Medical Summary Rpt ---
Author Author RIGO Che, [employer] Organization [employer] Address Unknown Phone Unavailable Results Urine test by rapid immunoassa Observa Value Referen Units Interpr Notes Date tion ce etation Range Urine NEGATIV NEG No No No Apr 15 pregnan E informa informa informa 2017 cy test tion in tion in tion in 8:46 PM by source source source rapid data data data immunoa ssa CHLAMYDIA AND GONORRHEA TESTING Observa Value Referen [...] CHART N/A No No No No May 3 NUMBER informa informa informa informa 2014 tion [...] Neisser NEGATIV No No No NEGATIV May 3 ia E informa informa informa E [...] MAY HAVE ADVERSE PSYCHO- SOCIAL IMPACT, [facility].\.br \This report contain [...] No No No No Feb 01 OR EDITOR BOOK informa informa informa informa 2012 tion in [...] No No No No Feb 01 OR EDITOR BOOK informa informa informa informa 2012 tion in [...]
--- OUTSIDE RECORDS SUMMARY | 2017-05-28 17:57 | External Medical Summary Rpt | CCD ---
Author Author , RIGO SIERRA Address Unknown Phone [email or web address] Immunization Name Date Rout CVX Reac Dose Comm Prov Is Faci e tion ent ider Refu lity Give sed n Hep - 8 999 Hist H149 No H149 B, 03-17 oric ped/ al adol Info rmat ion - Sour ce Unsp ecif ied Tdap - 115 999 Hist H149 No [...]
--- OUTSIDE RECORDS SUMMARY | 2017-05-28 17:57 | External Medical Summary Rpt ---
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
--- OUTSIDE RECORDS SUMMARY | 2017-05-28 17:57 | External Medical Summary Rpt | CCD ---
Author Author , RIGO SIERRA Address Unknown Phone [email or web address] Immunization Name Date Rout CVX Reac Dose [...]
== END 2017-05-28 18:19 | disposition left against medical advice (07) ==
LOC: ER 17:23 → UTC 17:51
DX: Z53.29 Procedure and treatment not carried out because of patient's decision for other reasons (principal)